=== PATIENT | female | born 1980 | race Caucasian/White ===

== ENCOUNTER → 2018-05-30 16:58 | Outpatient (CLI) | payer OTHER, SELFPAY ==
--- NOTE | 2018-06-06 08:11 | PM.PFT.1 ---
Pulmonary Function Test Referral & Results Date Patient Seen: 05/30/18 Requesting provider: Kym Celis Indication: Shortness of breath Results: The spirometry demonstrates an FVC of 3.34 L which is 90% of predicted. The FEV1 was measured at 2.65 L which is 87% of predicted. The FEV1/FVC ratio was 79 which is 96% of predicted. Following the administration of bronchodilator there was 10% improvement in FEV1 and a 50% improvement in FEF 25-75%. Lung volumes show an SVC of 3.46 L which is 99% of predicted. The diffusing capacity was measured at 23.8 for which is 98% of predicted. The maximum voluntary ventilation was normal. Interpretation: This study demonstrates possibly very mild obstructive lung disease based on very minimal reduction in FEV1 and concave shape of flow volume loop. There did appear to be some improvement as well following the administration of bronchodilator based on a 10% improvement in FEV1 and the 50+ percent improvement in small airway flow based on the increase in FEF 25-75% No other abnormalities were seen on this study Clinical correlation suggested
== END ==
PROVIDERS: PCP Family Medicine; Visit Provider Family Medicine
DX: R06.02 Shortness of breath (principal)
CPT/HCPCS: 94010; 94060; 94726; 94729

== ENCOUNTER → 2018-07-03 09:56 | Outpatient (CLI) | payer OTHER, SELFPAY ==
[2018-07-03 10:39] LABS: Add Manual Diff / Slide Review NO; Basophils Percent Auto 0.2 % (0-2); Eosinophils Percent Auto 0.6 % (2-4); Hematocrit 39.9 % (36-46); Hemoglobin 13.6 g/dL (12.0-16.0); Lymphocytes Percent Auto 31.8 % (25-40); Mean Corpuscular HGB Conc 34.1 % (30-36); Mean Corpuscular Hemoglobin 29.8 PG (26-34); Mean Corpuscular Volume 87.5 fL (80-100); Monocytes Percent Auto 4.9 % (3-14); Neutrophils Absolute Auto 5300 /uL (3000-5900); Neutrophils Percent Auto 62.5 % (50-75); Platelet Count 240 X10^3/uL (150-400); Red Blood Cell Count 4.56 X10^6/uL (4.0-5.2); White Blood Cell Count 8.5 X10^3/uL (4.5-11.0)
[2018-07-03 11:04] LABS: Alanine Aminotransferase 24 IU/L (9-52); Albumin Globulin Ratio 1.3 (1.0-2.8); Alkaline Phosphatase 50 U/L (38-126); Aspartate Aminotransferase 21 IU/L (14-36); BUN Creatinine Ratio 13.8 (6-22); Bilirubin Total 0.6 mg/dL (0.2-1.3); Blood Urea Nitrogen 11 mg/dL (7-17); Calcium 9.3 mg/dL (8.4-10.2); Carbon Dioxide 29 mmol/L (22-32); Chloride 104 mmol/L (98-107); Estimated Glomerular Filt Rate > 60.0 mL/min (>60); Globulin 3.2 g/dL (1.7-4.1); Glucose 91 mg/dL (70-100); HEMOLYSIS < 15 (0-50); Potassium 3.8 mmol/L (3.4-5.1); Sodium 143 mmol/L (137-145); Total Protein 7.2 g/dL (6.3-8.2)
== END ==
PROVIDERS: PCP Family Medicine; Visit Provider Family Medicine
DX: R00.2 Palpitations (principal)
CPT/HCPCS: 36415; 80053; 84443; 85025

== ENCOUNTER → 2018-07-11 13:00 | Outpatient (CLI) | payer OTHER, SELFPAY ==
--- NOTE | 2018-07-22 10:18 | PM.CARDMON.1 ---
[employer] Operator Report Referral & Results Date Patient Seen: 07/11/18 Requesting provider: Kym Celis Indication: Palpitations Duration of monitoring (days): 4 Diary information: There was 0 patient diary entries There were 6 patient triggered events associated with sinus rhythm and PVCs Data: The minimum heart rate identified was 63 beats per minute at 03:09 on 07/12/2018 Maximum heart rate identified was 174 beats per minute at 11:21 on 07/13/2018 Less than 1% of identified beats were PACs Approximately 2.3% of identified beats were PVCs. Patient also had up to 4 min of ventricular bigeminy Impression: Patient with multiple PVCs as a potential and in fact likely source of patient's reported symptoms of palpitations No other serious dysrhythmia is identified on this study Clinical correlation suggested
== END ==
PROVIDERS: PCP Family Medicine; Visit Provider Family Medicine
DX: R00.2 Palpitations (principal)

== ENCOUNTER → 2019-08-01 09:28 | Outpatient (CLI) | payer OTHER, SELFPAY ==
--- NOTE | 2019-08-01 09:30 | DI.MG.S_ITS ---
BILATERAL DIGITAL SCREENING MAMMOGRAM 3D/2D WITH CAD: 08/01/2019 CLINICAL: Routine screening. Baseline exam. No prior exams were available for comparison. The tissue of both breasts is heterogeneously dense. This may lower the sensitivity of mammography. Current study was also evaluated with a Computer Aided Detection (CAD) system. No significant masses, calcifications, or other findings are seen in either breast. IMPRESSION: NEGATIVE There is no mammographic evidence of malignancy. A 1 year screening mammogram is recommended. This exam was interpreted at Station ID: [id number]. NOTE: For mammograms, a report in lay terms will be sent to the patient. Approximately 15% of breast malignancies will not be visualized mammographically. In the management of a palpable breast mass, a negative mammogram must not discourage biopsy of a clinically suspicious lesion. Electronically Signed By: Alina hughes/droa:08/03/2019 14:59:20 letter sent: Normal Exam ACR BI-RADS Category 1: Negative [id number]
== END ==
PROVIDERS: PCP Family Medicine; Visit Provider Family Medicine
DX: Z12.31 Encounter for screening mammogram for malignant neoplasm of breast (principal)
CPT/HCPCS: 77063; 77067

== ENCOUNTER → 2019-09-04 09:24 | Outpatient (CLI) | payer OTHER, SELFPAY ==
--- NOTE | 2019-09-04 09:25 | DI.US.S_ITS ---
PROCEDURE: US PELVIC COMPLETE INDICATIONS: PAIN TECHNIQUE: Real-time scanning was performed of the pelvic organs, with image documentation. Additional endovaginal scanning was necessary due to incomplete visualization of the adnexal and endometrial structures by transabdominal scanning. COMPARISON: None. FINDINGS: Transabdominal scanning: Limited scanning through the kidneys shows no hydronephrosis. No pathologic free abdominal or pelvic fluid. Endovaginal scanning: Uterus: Uterus is normal in size at 5.0 x 3.4 x 4.7 cm. The endometrium measures 2.5 mm in combined thickness. Ovaries: Ovaries are normal bilaterally. No adnexal masses seen. IMPRESSION: No source for pelvic pain identified. Dictated by: Sudhakar MARTÍNEZ Interpreted: Guille Ferris MD on 09/04/2019 at 11:01 Approved by: Guille Ferris M.D. on 09/04/2019 at 16:51
== END ==
PROVIDERS: PCP Family Medicine; Visit Provider Family Medicine
DX: R10.2 Pelvic and perineal pain (principal)
CPT/HCPCS: 76830; 76856

== ENCOUNTER 2019-10-16 16:46 | Emergency (ER) | payer OTHER, SELFPAY ==
[2019-10-16 16:51] VITALS: BP 148/90; PULSE 119; RESP 20; TEMP 36.4; O2SAT 99; BMI 27.4
--- NOTE | 2019-10-16 18:06 | DI.RAD.S_ITS ---
PROCEDURE: XR LUMBAR SPINE 2-3V INDICATIONS: low back pain TECHNIQUE: 3 views of the lumbar spine were acquired. COMPARISON: None. FINDINGS: Bones: 5 [id number] vertebrae are present. There is normal bony alignment. No vertebral body compression fractures. No suspicious bony lesions. Soft tissues: Overlying bowel gas pattern is normal. No suspicious soft tissue calcifications. IMPRESSION: No acute radiographic findings. If there is continued pain, followup exam or additional imaging such as MRI or CT could be performed for further assessment. Dictated by: Lisa Sevilla M.D. on 10/16/2019 at 18:58 Approved by: Lisa Sevilla M.D. on 10/16/2019 at 18:59
--- NOTE | 2019-10-16 18:16 | ED.BACK ---
HPI - Back Pain/Injury <PRIYANK Cuello - Last Filed: 10/16/19 21:45> General Chief Complaint: Back Pain/Injury Stated Complaint: injured her back a week ago, in a lot of pain Time Seen by Provider: 10/16/19 17:21 Source: patient Mode of arrival: Ambulatory Limitations: no limitations History of Present Illness HPI Narrative: This is a 39-year-old female, former smoker, who presents to ED with severe low back pain which is radiating to bilateral hips. Patient states she injured low back about a week ago by bending forward to pickling operator a toy. Patient was seen by chiropractor next day and had her back adjusted and starting to feel better with the sleeping with pillows between her legs and behind her knees with self treatment with [id number] Tylenol and Motrin. 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 Patient denies bladder or stool incontinence, saddle anesthesia, fever, chills, nausea or vomiting, recent surgical manipulation in her back/injection, urinary symptoms. Patient states she is able to ambulate but pain increases with sitting down and prolonged standing. Patient wanted to be seen by her PCP today but no available appointments till and the of this month and was suggested to go to ED for an evaluation. Related Data Home Medications Medication Instructions Recorded Confirmed acetaminophen 325 mg capsule 325 mg PO Q6H PRN 04/16/18 07/31/19 sodium chloride 0.65 % nasal spray 1 spray NASAL Q4H PRN 04/16/18 07/31/19 aerosol dextromethorphan-guaifenesin ER 60 1 tab PO Q12H PRN tab 07/28/19 07/31/19 mg-1,200 mg tab,extend release,12hr Previous Rx's Medication Instructions Recorded albuterol sulfate 90 mcg/actuation 2 puff INHALATION Q4H PRN #6.7 gram 06/12/18 aerosol inhaler fluticasone propionate 50 1 spray INTRANASAL QDAY #1 bot 07/23/18 mcg/actuation nasal spray,suspension loratadine-pseudoephedrine ER 10 1 tab PO QDAY #30 tab 10/21/18 mg-240 mg tablet,extended [id number] desogestrel 0.15 mg-ethinyl 1 tab PO DAILY #84 tab 07/10/19 estradiol 0.03 mg tablet epinephrine 0.3 mg/0.3 mL 0.3 mg IM ONCE PRN #2 each 07/31/19 injection, auto-injector montelukast 10 mg tablet 10 mg PO QDAY #30 tab 09/15/19 cyclobenzaprine 5 - 10 mg PO BEDTIME PRN #10 tab 10/16/19 hydrocodone-acetaminophen [[place]] 1 tab PO Q8H PRN #7 tab 10/16/19 prednisone 40 mg PO DAILY 4 Days #8 tab 10/16/19 Allergies Allergy/AdvReac Type Severity Reaction Status Date / Time shellfish derived Allergy Unknown Verified 10/16/19 16:57 [SHELLFISH DERIVED] Sulfa (Sulfonamide Allergy Unknown Verified 10/16/19 16:57 Antibiotics) [SULFA (SULFONAMIDE ANTIBIOTICS)] venom-honey bee Allergy Unknown Verified 10/16/19 16:57 [BEE VENOM (HONEY BEE)] Review of Systems <PRIYANK Cuello - Last Filed: 10/16/19 21:45> Review of Systems Narrative: General: Denies fever, chills, fatigue, malaise, sweats. HEENT: Denies sinus pain, ear pain, sore throat, difficulty swallowing, dizziness. Respiratory: Denies dyspnea, cough, wheezing, hemoptysis, sputum. Cardiovascular: Denies chest pain, palpitations, orthopnea, edema. Gastrointestinal: Denies nausea, vomiting, abdominal pain, diarrhea, constipation, melena. : Denies dysuria, frequency, incontinence, hematuria, urinary retention. Musculoskeletal: See HPI Skin: Denies rash, skin lesions, or other. Neurologic: Denies weakness, headache, numbness, change in speech, confusion, seizures, incoordination. Psychiatric: No concerning psychosocial issues. 12-point review of systems is negative except for those stated above. Patient History <PRIYANK Cuello - Last Filed: 10/16/19 21:45> Medical History Ankle pain (Resolved ~1987) Asthma (Acute) Chicken pox (Chronic ~1983) Chronic back pain (Chronic ~1997) CTS (carpal tunnel syndrome) (Chronic 1997) Depression (Chronic ~1996) Eczema (Chronic ~2013) 3 (Resolved) Hayfever (Chronic ~1986) Migraines (Chronic ~2000) Recurrent sinusitis (Chronic ~2000) Surgical History Anesthesia (Resolved) History of hernia repair (Resolved 1979) History of third molar tooth extraction (Resolved 1995) Family History Father Age: 53 Mental health problem Pacemaker Lung disease Grandfather Lung cancer Diabetes mellitus Grandfather Heart disease Grandmother Heart disease Hypertension High cholesterol Brother No problems noted. Grandmother No problems noted. 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 Head: normocephalic, atraumatic, no scalp lesions, non-tender. ENT: Bilateral auditory canals and tympanic membranes clear. Hearing grossly intact. Nose without bleeding, purulent discharge, septal hematoma or deviation. Turbinate without erythema or swelling. Facial sinuses nontender to palpate. Mucous membrane moist, no mucosal lesion. Throat without erythema, tonsillar hypertrophy or exudate. Uvula in midline, airway patent. Neck/Thyroid: neck supple, full range of motion, no visible masses or meningeal signs. No JVD, non-tender without lymphadenopathy. Skin: no suspicious rashes, lesions over visible areas. Warm and dry and appropriate color for ethnicity. Heart: no clubbing, no cyanosis, no edema. S1 and S2 normal. RRR w/o murmurs, clicks, or bruits. Lungs: Breathing even and unlabored. No stridor. No accessory muscles used. Able to speak in full sentences. Chest: normal shape and expansion. Abdomen: non-obese, non-distended. Neurologic: alert and oriented. Cognitive exam, QUILL LAYER and PNS grossly intact on informal exam. Psych: good eye contact, normal affect. Initial Vital Signs Initial Vital Signs: Vital Signs Temperature 97.6 F 10/16/19 16:51 Pulse Rate 119 H 10/16/19 16:51 Respiratory Rate 10/16/19 16:51 Blood Pressure 148/90 H 10/16/19 16:51 Pulse Oximetry 99 10/16/19 16:51 Back/Spine/Pelvis Back: normal to inspection Cervical Spine: cervical ROM normal Thoracic/Lumbar Spine: thoracic and lumbar spine normal to inspection, paraspinal tenderness, thoraco-lumbar ROM limited, lumbar spinal tenderness, straight leg raise positive and other (No erythema, warmth, swelling) <Duncan Ojeda DO - Last Filed: 10/16/19 21:46> Initial Vital Signs Initial Vital Signs: Vital Signs Temperature 97.6 F 10/16/19 16:51 Pulse Rate 119 H 10/16/19 16:51 Respiratory Rate 10/16/19 16:51 Blood Pressure 148/90 H 10/16/19 16:51 Pulse Oximetry 99 10/16/19 16:51 Scores <PRIYANK Cuello - Last Filed: 10/16/19 21:45> GCS [place] coma scale eye opening: Spontaneous [place] coma scale verbal response: Orientated Yocasta coma scale motor response: Obey commands Yocasta coma scale total score: 15 Course <PRIYANK Cuello - Last Filed: 10/16/19 21:45> Orders Ordered: ED Orders 10/16/19 17:58 Urine Microscopic Stat 10/16/19 18:06 XR lumbar spine 2-3V Stat Discontinued Medications Acetaminophen (Tylenol) 975 mg PO NOW ONE Stop: 10/16/19 18:10 Last Admin: 10/16/19 18:19 Dose: 975 mg Documented by: ADELINE Cyclobenzaprine HCl (Flexeril) 10 mg PO NOW ONE Stop: 10/16/19 18:07 Last Admin: 10/16/19 18:20 Dose: 10 mg Documented by: ADELINE Ketorolac Tromethamine (Toradol) 30 mg IM NOW ONE Stop: 10/16/19 18:07 Last Admin: 10/16/19 18:20 Dose: 30 mg Documented by: ADELINE Pantoprazole Sodium (Protonix) 20 mg PO NOW ONE Stop: 10/16/19 18:07 Last Admin: 10/16/19 18:20 Dose: 20 mg Documented by: ADELINE Prednisone (Deltasone) 40 mg PO NOW ONE Stop: 10/16/19 18:07 Last Admin: 10/16/19 18:19 Dose: 40 mg Documented by: ADELINE Vital Signs Vital signs: Vital Signs - 8 hr 10/16/19 16:51 10/16/19 19:59 Temperature 97.6 F Pulse Rate 119 H 78 Respiratory Rate 20 16 Blood Pressure 148/90 H Blood Pressure [Left Arm] 119/66 Pulse Oximetry 99 98 <Duncan Ojeda DO - Last Filed: 10/16/19 21:46> Orders Ordered: ED Orders 10/16/19 17:58 Urine Microscopic Stat 10/16/19 18:06 XR lumbar spine 2-3V Stat Discontinued Medications Acetaminophen (Tylenol) 975 mg PO NOW ONE Stop: 10/16/19 18:10 Last Admin: 10/16/19 18:19 Dose: 975 mg Documented by: ADELINE Cyclobenzaprine HCl (Flexeril) 10 mg PO NOW ONE Stop: 10/16/19 18:07 Last Admin: 10/16/19 18:20 Dose: 10 mg Documented by: ADELINE Ketorolac Tromethamine (Toradol) 30 mg IM NOW ONE Stop: 10/16/19 18:07 Last Admin: 10/16/19 18:20 Dose: 30 mg Documented by: ADELINE Pantoprazole Sodium (Protonix) 20 mg PO NOW ONE Stop: 10/16/19 18:07 Last Admin: 10/16/19 18:20 Dose: 20 mg Documented by: ADELINE Prednisone (Deltasone) 40 mg PO NOW ONE Stop: 10/16/19 18:07 Last Admin: 10/16/19 18:19 Dose: 40 mg Documented by: ADELINE Vital Signs Vital signs: Vital Signs - 8 hr 10/16/19 16:51 10/16/19 19:59 Temperature 97.6 F Pulse Rate 119 H 78 Respiratory Rate 20 16 Blood Pressure 148/90 H Blood Pressure [Left Arm] 119/66 Pulse Oximetry 99 98 MDM - Back Pain/Injury <PRIYANK Cuello - Last Filed: 01/10/20 21:45> Differential Diagnosis Differential diagnosis: Likely lumbar radiculopathy and strain of lumbar region Medical Records Attestation: I reviewed the patient's medical records. Lab Data Attestation: I reviewed the patient's lab results. Labs: Lab Results 10/16/19 Range/Units 17:58 Urine RBC 0-1/hpf (0-5/HPF) Urine WBC 0-1/hpf (0-5/HPF) Ur Squamous Epith Cells 0-1 /hpf (0-5/HPF) Urine Bacteria None seen (None) Ur Culture Indicated? Cult not indicated Point of Care Testing Test Results Negative Urine Dip Bedside Urine Glucose Negative Bedside Urine Bilirubin - Negative Bedside Urine Ketone - Negative Urine Specific [place] 1.010 Bedside Urine Occult Blood + Bedside Urine pH 6.0 Bedside Urine Protein - Negative Bedside Urine Urobilinogen - Negative Bedside Urine Nitrite - Negative Bedside Urine Leukocytes - Negative Esterase Imaging Data XR-Lumbar: Radiologist's Impression: [address] [address] XRay Report Signed Patient: Patricia Aguayo [facility]#: [id number] : 1980Acct:[id number] Age/Sex: 39 / FDate of Service: 10/16/19 Loc: ED Accession Number: [id number] Procedure: XR lumbar spine 2-3V Ordering Provider: Saul Goldstein PROCEDURE: XR LUMBAR SPINE 2-3V INDICATIONS: low back pain TECHNIQUE: 3 views of the lumbar spine were acquired. COMPARISON: None. FINDINGS: Bones: 5 [id number] vertebrae are present. There is normal bony alignment. No vertebral body compression fractures. No suspicious bony lesions. Soft tissues: Overlying bowel gas pattern is normal. No suspicious soft tissue calcifications. IMPRESSION: No acute radiographic findings. If there is continued pain, followup exam or additional imaging such as MRI or CT could be performed for further assessment. Dictated by: Lisa Sevilla M.D. on 10/16/2019 at 18:58 Approved by: Lisa Sevilla M.D. on 10/16/2019 at 18:59 MDM Narrative Medical decision making narrative: This is a 39-year-old female who had initially injured her low back about a week ago by bending forward to pickling operator a toy. 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 Patient had thoracic and lumbar spinal and paraspinal tenderness with positive leg raise but no weakness to her legs. Patient was ambulatory without difficulty. Patient denies saddle anesthesia, incontinence, fever or chills. Lumbar x-ray test does not show acute findings today. Patient was medicated with Toradol injection, Tylenol, Flexeril, prednisone while in ED and patient felt improvement after these. UA does not appears to be a infection but 1+ occult blood. However, physical exam is not consistent with renal stone. Urine test was negative. Return precautions were discussed with the patient and advised to follow with PCP especially pain persists longer than expected for further imaging test. Patient discharged to home with few tabs of Flexeril, [place], and short burst of prednisone. Patient advised to take Tylenol and Motrin as baseline and sparingly use other medications only as needed and narcotic and muscle relaxant precautions were discussed. Return precautions were discussed with the patient and patient and spouse verbalized understanding and agrees with the treatment plan. <Duncan Ojeda, DO - Last Filed: 10/16/19 21:46> Lab Data Labs: Lab Results 10/16/19 Range/Units 17:58 Urine RBC 0-1/hpf (0-5/HPF) Urine WBC 0-1/hpf (0-5/HPF) Ur Squamous Epith Cells 0-1 /hpf (0-5/HPF) Urine Bacteria None seen (None) Ur Culture Indicated? Cult not indicated Point of Care Testing Test Results Negative Urine Dip Bedside Urine Glucose Negative Bedside Urine Bilirubin - Negative Bedside Urine Ketone - Negative Urine Specific [place] 1.010 Bedside Urine Occult Blood + Bedside Urine pH 6.0 Bedside Urine Protein - Negative Bedside Urine Urobilinogen - Negative Bedside Urine Nitrite - Negative Bedside Urine Leukocytes - Negative Esterase Discharge Plan Departure Patient Disposition: Home Clinical Impression: Low back pain Qualifiers: Chronicity: acute Back pain laterality: bilateral Sciatica presence: unspecified whether sciatica present Qualified Code(s): M54.5 - Low back pain Discharge Date/Time: 10/16/19 20:06 Instructions: DI for Low Back Pain Activity Restrictions/Additional Instructions: You have been diagnosed with [low back pain. Today's lumbar x-ray test does not show acute findings. You were medicated with prednisone, Flexeril, Toradol injection, Tylenol while in ED which improved her pain. Urine showed small amount of blood but does not appears to be your pain is caused by this or kidney stone.]. What to do: *Take your medications as directed. Please take Flexeril for muscle relaxant especially when you go to sleep. [place] is only for severe pain. [place] and Flexeril can cause drowsiness so please take precautions such as not driving, drinking alcohol, for operating heavy equipments. [place] can cause also constipation. Otherwise, please take Tylenol and Motrin for pain management. Tylenol up to 4000 mg in 24 hour period. Ibuprofen 600-800 mg 3 times a day with meal/food to decrease GI upset. Prednisone 40 mg daily for next 4 days for inflammation and pain. You can take [id number] omeprazole to decrease GI symptoms while you're taking ibuprofen and steroids. *Follow up with your primary care provider in 2-3 days, call for an appointment. Let them know you were seen in the ED and that we asked you to be seen in follow up. *Return to ED if you have any new, worsening, or concerning symptoms, such as [chest pain, breathing difficulty, unable to tolerate fluids, weakness to her legs, numbness in your groin areas, incontinence problem or any acute concerns]. Prescriptions: New hydrocodone-acetaminophen [[place]] 5-325 mg tablet 1 tab PO Q8H PRN (Reason: pain) Qty: 7 RF: 0 cyclobenzaprine 10 mg tablet 5 - 10 mg PO BEDTIME PRN (Reason: muscle spasm) Qty: 10 RF: 0 prednisone 20 mg tablet 40 mg PO DAILY 4 Days Qty: 8 RF: 0 No Action epinephrine [Auvi-Q] 0.3 mg/0.3 mL auto-injector 0.3 mg IM ONCE PRN (Reason: anaphylaxis) Qty: 2 RF: 1 albuterol sulfate 90 mcg/actuation HFA aerosol inhaler 2 puff INHALATION Q4H PRN (Reason: shortness of breath or wheezing) Qty: 6.7 RF: 2 fluticasone propionate [Flonase Allergy Relief] 50 mcg/actuation spray,suspension 1 spray Intranasal QDAY Qty: 1 RF: 0 loratadine-pseudoephedrine 10-240 mg tablet extended release 24 hr 1 tab PO QDAY Qty: 30 RF: 12 desogestrel-ethinyl estradiol 0.15-0.03 mg tablet 1 tab PO DAILY Qty: 84 RF: 1 montelukast 10 mg tablet 10 mg PO QDAY Qty: 30 RF: 12 acetaminophen 325 mg capsule 325 mg PO Q6H PRNRF: 0 sodium chloride [Saline Mist] 0.65 % aerosol,spray 1 spray NASAL Q4H PRNRF: 0 dextromethorphan-guaifenesin [Mucinex DM] 60-1,200 mg tablet extended release 12 hr 1 tab PO Q12H PRNRF: 0 Referrals: Kym Celis DO [Primary Care Provider] - <Duncan Ojeda DO - Last Filed: 10/16/19 21:46> Sign Out Provider Sign Out Attestation: Dr Ojeda Co-Sign Statement: I was available for consultation during this patient's emergency department visit. This chart is signed by myself for administrative purposes only. I did not have direct contact with this patient during this visit. They were seen independently by the APC.
[2019-10-16] MEDS: predniSONE 20 MG TABLET 40 MG PO (18:19)
[2019-10-16] MEDS: ACETAMINOPHEN 325 MG TABLET 975 MG PO (18:19)
[2019-10-16] MEDS: KETOROLAC 60 MG/2 ML VIAL 30 MG IM (18:20)
[2019-10-16] MEDS: CYCLOBENZAPRINE 10 MG TABLET PO (18:20)
[2019-10-16] MEDS: PANTOPRAZOLE 20 MG TABLET PO (18:20)
[2019-10-16 18:40] LABS: Bacteria Urine None Seen
[2019-10-16 18:55] LABS: Culture Indicated Urine Cult Not Indicated; RBC Urine 0-1/HPF (0-5/HPF); Squamous Epithelial Cell Urine 0-1 /HPF (0-5/HPF); WBC Urine 0-1/HPF (0-5/HPF)
[2019-10-16 19:59] VITALS: BP 119/66; PULSE 78; RESP 16; O2SAT 98
== END 2019-10-16 20:06 | disposition home or self-care (01) ==
PROVIDERS: Emergency Provider Nurse Practitioner Family; PCP Family Medicine
DX: M54.5 Low back pain (principal)
CPT/HCPCS: 72100; 81003; 81015; 81025; 96372; 99283; 99284; J1885

== ENCOUNTER → 2019-11-16 07:50 | Outpatient (CLI) | payer OTHER, SELFPAY ==
[2019-11-16 08:36] LABS: Add Manual Diff / Slide Review NO; Basophils Absolute Auto 0 /uL (0-100); Basophils Percent Auto 0.1 % (0-2); Eosinophils Absolute Auto 100 /uL (0-450); Eosinophils Percent Auto 1.5 % (2-4); Hematocrit 39.7 % (36-46); Hemoglobin 13.5 g/dL (12.0-16.0); Lymphocytes Absolute Auto 3400 /uL (1100-4500); Lymphocytes Percent Auto 44.7 % (25-40); Mean Corpuscular HGB Conc 33.9 % (30-36); Mean Corpuscular Volume 88.3 fL (80-100); Monocytes Absolute Auto 400 /uL (0-900); Neutrophils Absolute Auto 3700 /uL (1500-7000); Neutrophils Percent Auto 48.7 % (50-75); Platelet Count 270 X10^3/uL (150-400); Red Cell Distribution Width 13.2 % (11.6-14.8); White Blood Cell Count 7.5 X10^3/uL (4.5-11.0)
[2019-11-16 08:46] LABS: Alanine Aminotransferase 26 IU/L (<35); Albumin 4.1 g/dL (3.5-5.0); Albumin Globulin Ratio 1.2 (1.0-2.8); Alkaline Phosphatase 63 U/L (38-126); Aspartate Aminotransferase 26 IU/L (14-36); BUN Creatinine Ratio 17.1 (6-22); Bilirubin Total 0.5 mg/dL (0.2-1.3); Blood Urea Nitrogen 12 mg/dL (7-17); Calcium 8.9 mg/dL (8.4-10.2); Carbon Dioxide 26 mmol/L (22-32); Chloride 104 mmol/L (98-107); Estimated Glomerular Filt Rate > 60.0 mL/min (>60); Globulin 3.4 g/dL (1.7-4.1); Glucose 92 mg/dL (70-100); HEMOLYSIS < 15 (0-50); Potassium 3.7 mmol/L (3.4-5.1); Sodium 138 mmol/L (137-145); Total Protein 7.5 g/dL (6.3-8.2)
[2019-11-16 09:23] LABS: TSH w/ Reflex to FT4 1.58 uIU/mL (0.47-4.68)
== END ==
PROVIDERS: PCP Family Medicine; Referring Provider Family Medicine; Visit Provider Family Medicine
DX: R00.0 Tachycardia, unspecified (principal)
CPT/HCPCS: 36415; 80053; 84443; 85025

== ENCOUNTER 2019-12-23 16:45 | Outpatient (RCR) | payer OTHER, SELFPAY ==
--- NOTE | 2019-10-29 18:55 | PT.OIE ---
Current Diagnoses Low back pain (10/29/19) Abnormal posture (10/29/19) Weakness (10/29/19) Past Medical History (Last Reviewed 10/22/19 @ 07:58 by Kym Celis DO) Ankle pain (Resolved ~1987) Asthma (Acute) Chicken pox (Chronic ~1983) Chronic back pain (Chronic ~1997) CTS (carpal tunnel syndrome) (Chronic 1997) Depression (Chronic ~1996) Eczema (Chronic ~2013) 3 (Resolved) Hayfever (Chronic ~1986) Migraines (Chronic ~2000) Recurrent sinusitis (Chronic ~2000) Past Surgical History (Last Reviewed 10/22/19 @ 07:58 by Kym Celis DO) Anesthesia (Resolved) History of hernia repair (Resolved 1979) History of third molar tooth extraction (Resolved 1995) Visit Care Team Role Provider Type Kym Celis DO Attending Provider Physician Primary Care Provider Specialty: [facility] Practice Address: [address] [place] [address], [facility] Email: [email or web address] Physical Therapy Initial Evaluation PT-OP-A Visit Information Start: 10/28/19 18:34 Freq: Status: Active Protocol: Document 10/29/19 16:04 [facility] (Rec: 10/29/19 18:37 [facility] [id number]) Out-Patient Physical Therapy Visit Information Visit Information Visit Type Initial Evaluation Visit Start Time 16:54 Visit Stop Time 18:04 Total Visit Minutes 70 Visit Number 1 Number of RESEARCH QUALITY ASSURANCE SPECIALIST Visits 0 PT-OP-B Current Condition Start: 10/28/19 18:34 Freq: Status: Active Protocol: Document 10/29/19 16:04 [facility] (Rec: 10/29/19 18:37 [facility] [id number]) Current Condition History of Current Condition Onset Date Oct 08 worse Current Complaints LBP History of Current Condition Pt reports she has had LBP for a while that was mild for months and has been seeing chiropractor and getting better. She bent over to put a toy leticia bin Oct 08 and had a sharp pain that went into back and around to abdomen like a belt. She went to ER shortly after d/t pain and was given pain meds and saw primary who sent her here. Pt has not seen chiropractor recently d/t concern re: motion and unsure if helping. Last time she saw chiro oct 16. She is taking flexeril which her MD prescribed and she thinks it is helpful especially to help sleeping. Pt reports she changed her sleeping position to hips flexed as high as possible with pillow between and that helped. Standing is not as bad as sitting. Pt has has referal in to see plastic surgeon for breast reduction as she gets bruised by bra and has upper back and neck pain. She did PT for that a couple years ago still does stretches . Pt has hx of R inguinal hernia at 17 months old. Pt is so scared and tenative re: movement d/t fear of having that pain again. Sometimes going down is okay but coming up catches it. Pt has taken off 2 weeks and this is the end of it . 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 She is using a cushion to help her be higher now. She started some Serina ext exercises per a coworker who used to be a PT and that helped some. Pt has pressure in abdomen and feels like she can't hold her core because it creates more pain and has had some incontinence when she does that. When she was on those meds from the ER, she had 4 days of feeling great, but worse again. Pt has a normal vaginal US. Pt reports feels like she is not voiding completely bowel or bladder fully. Pt reports urge incontinence. Pt had 2 tramatic births. SHe was told her had a prolapse but did not have any sumptoms and they did nothing for her. Recent MD borja did not note prolapse. Pt reports 1st child was stuck on her pelvis for 3 hours and came out face first. 2nd kid was also stuck and they had to do vacuum assist to get him out. Kids are 9 and 11. Pt reports fall on tailbone where she was significantly bruised after slipping on wet stairs. This happened last winter. Treatment Goals Patient/Caregiver Goals Figure out how to make herself feel better, be able to move with less pain, improve incontinence, dec pain and pressure PT-OP-C Subjective Start: 10/28/19 18:34 Freq: Status: Active Protocol: Document 10/29/19 16:04 [facility] (Rec: 10/29/19 18:37 [facility] [id number]) Patient Questionnaires Oswestry Low Back Index Oswestry Score 24/50 OP-PT Pain Assessment Location LB Pain Location Details sacral & SI & glute L>R Intensity 4 Scale Used Numeric (1 - 10) Description Aching,Pressure Description- Other gets up to 8/10 with certain activities Frequency Constant Radiating Location legs feel heavy when getting up Pain Aggravating Factors Sitting,Bending,Lifting Other Pain Aggravating Factors driving Pain Alleviating Factors Cold,Heat,Medication Other Pain Alleviating Factors post tilt, lay down PT-OP-F Manual Assessment Start: 10/28/19 18:34 Freq: Status: Active Protocol: Document 10/29/19 16:04 [facility] (Rec: 10/29/19 18:37 [facility] [id number]) Manual Assessments Soft Tissue Assessment Soft Tissue Mobility Assessment tightnes in QL, ES & glutes Joint Mobility Assessment Joint Mobility Assessment R iliac crest higher than L, equal height of greater trochanters PT-OP-G Mobility & Gait Start: 10/28/19 18:34 Freq: Status: Active Protocol: Document 10/29/19 16:04 [facility] (Rec: 10/29/19 18:37 [facility] [id number]) OP Mobility Evaluation Bed Mobility Rolling performs log roll technique for supine<>Sit OP Gait Assessment Comments Gait Comments Pt amb with rigid upper torso and dec pelvis motion at this time. No notable ant elevation /post depression PT-OP-J Posture/Palpation/Skin Start: 10/28/19 18:34 Freq: Status: Active Protocol: Document 10/29/19 16:04 [facility] (Rec: 10/29/19 18:37 [facility] [id number]) Posture Evaluation Jonny Postural Classification System Jonny Postural Classifications Anterior/Posterior Lumbar Protective Mechanism Left AP 0 Lumbar Protective Mechanism Right AP 0 Lumbar Protective Mechanism Left PA 0 Lumbar Protective Mechanism Right PA 0 PT-OP-K Range of Motion Start: 10/28/19 18:34 Freq: Status: Active Protocol: Document 10/29/19 16:04 [facility] (Rec: 10/29/19 18:37 [facility] [id number]) Lumbar Spine Range of Motion Lumbar Spine Active Degrees Flexion 34 Extension 20 Rotation Left 64 Rotation Right 48 Lateral Flexion Left 14 Lateral Flexion Right 13 PT-OP-L Special Tests Start: 10/28/19 18:34 Freq: Status: Active Protocol: Document 10/29/19 16:04 [facility] (Rec: 10/29/19 18:37 [facility] [id number]) Special Tests Lumbar Spine Special Tests Straight Leg Raise Test Results positive B at about 15 deg Slump Test Results unable to test d/t position being uncomfortable PT-OP-M Strength Start: 10/28/19 18:34 Freq: Status: Active Protocol: Document 10/29/19 16:04 [facility] (Rec: 10/29/19 18:37 [facility] [id number]) Hip Strength Hip Manual Muscle Testing Right Reason Not Measured Pain Left Reason Not Measured Pain Knee Strength Knee Manual Muscle Testing Right Reason Not Measured Pain Left Reason Not Measured Pain Ankle/Foot Strength Ankle and Foot Manual Muscle Testing Right Reason Not Measured Pain Left Reason Not Measured Pain PT-OP-Q Treatments Start: 10/28/19 18:34 Freq: Status: Active Protocol: Document 10/29/19 16:04 [facility] (Rec: 10/29/19 18:37 [facility] [id number]) Therapeutic Exercises Supine Exercises kegal Supine Exercise Name attempt to contract then fully relax Reps/Minutes hold 5 & rest 5 sec x3 lTR Supine Exercise Name focus on segmental control in comfortable range Side bilateral Reps/Minutes 10 pelvic tilt Supine Exercise Name post Reps/Minutes 10 stretch Supine Exercise Name SKTC & pirifromis Side bilateral Reps/Minutes 30 sec sciatic n glide Side bilateral Reps/Minutes 10 Self-Care/Home Management Treatment Education Other Education anatomy of pelvic and lumbar area, edu re: prognosis of improvement for pain and incontinence, edu to use ice/ heat for pain, edu re: importance of small inc in movement that is comfortable. PT-OP-R Modalities Start: 10/28/19 18:34 Freq: Status: Active Protocol: Document 10/29/19 16:04 [facility] (Rec: 10/29/19 18:37 [facility] [id number]) Hot Pack/Cold Pack Treatment Hot Pack Location lumbosacral Patient Position Sidelying Treatment Duration (minutes) 10 PT-OP-T Assessment and Plan Start: 10/28/19 18:34 Freq: Status: Active Protocol: Document 10/29/19 16:04 [facility] (Rec: 10/29/19 18:37 [facility] [id number]) Physical Therapy Assessment Rehab Potential Rehabilitation Potential Good Evaluation Complexity Number of Personal Factors/Comorbidities 3 or More Number of Body Systems Impaired 4 or More Clinical Presentation at Evaluation Evolving Impairments Impairments Activity Tolerance,Functional Activities,Functional Mobility ,Gait,Pain,Posture,Soft Tissue Mobility,Strength Goals sitting Steamer Operator Goal (LTG) Pt will be able to sit for as long as needed without inc pain. LTG Duration 12/28/19 ROM Short Term Goal (STG) Pt will have WNL ROM. 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 LTG Duration 12/28/19 strength Short Term Goal (STG) Pt will be indep with HEP. STG Duration 11/29/19 Steamer Operator Goal (LTG) Pt will score 5/5 LPM, VCT, and EFT in order to show improved core stability in order to allow her to participate in all work without inc pain. LTG Duration 12/28/19 Oswestry Impairment 24/50 STG Duration 11/29/19 LTG Duration 12/28/19 Assessment Summary Assessment Pt presents with LBP and L gluteal pain and pelvic pain with incontinence at this time starting a few months ago with recent incident causing signfiicant increase in pain that caused her to go to ER and seek treatment from her physician. Prior to this, she was managing her pain with director critical care. She is now limited in her ability to sit and participate in work activities without inc pain and has a constant 4/10 pain. She would benefit from skilled PT to work on ROM, gait, strength of LEs & core, improve body mechanics, and decrease pain. Physical Therapy Plan Frequency and Duration Frequency of Treatment 2x/Week Duration of Treatment 2 months Plan of Care Start Date 10/29/19 Plan of Care End Date 12/28/19 Therapeutic Interventions Therapeutic Interventions Aquatic Therapy,Balance Training,Gait Training,Home Exercise Program,Joint Mobilizations,Manual Therapy, Neuromuscular Re-education, Patient/Caregiver Education, Self-Care/Home Management,Soft Tissue Mobilization,Taping, Therapeutic Activities, Therapeutic Exercises Modalities Biofeedback,Cold Pack/Ice Massage,Electric Stimulation, Hot Packs,Infrared Therapy, Iontophoresis,Traction- Mechanical,Ultrasound Next Visit Focus/Plan Next Note Type Treatment Note Next Visit Plan try gentle core exercises, quadruped for cat/camel, dayo pose, try pelvic clocks , gentle flexibility, correction of pelvic alignment , STM to glutes, QL & ES
--- NOTE | 2019-10-29 18:55 | PT.OPPOC ---
Physical, Occupational & Speech Therapy At [facility] Current Diagnoses Low back pain (10/29/19) Abnormal posture (10/29/19) Weakness (10/29/19) Visit Care Team Role Provider Type Kym Celis DO Attending Provider Physician Primary Care Provider Specialty: Family Practice Address: [address] [place] [address], [id number] Email: [email or web address] Plan Of Care PT-OP-T Assessment and Plan Start: 10/28/19 18:34 Freq: Status: Active Protocol: Document 10/29/19 16:04 [facility] (Rec: 10/29/19 18:37 [facility] [id number]) Physical Therapy Assessment Rehab Potential Rehabilitation Potential Good Evaluation Complexity Number of Personal Factors/Comorbidities 3 or More Number of Body Systems Impaired 4 or More Clinical Presentation at Evaluation Evolving Impairments Impairments Activity Tolerance,Functional Activities,Functional Mobility ,Gait,Pain,Posture,Soft Tissue Mobility,Strength Goals sitting Utility Technician Goal (LTG) Pt will be able to sit for as long as needed without inc pain. LTG Duration 12/28/19 ROM Short Term Goal (STG) Pt will have WNL ROM. 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 LTG Duration 12/28/19 strength Short Term Goal (STG) Pt will be indep with HEP. STG Duration 11/29/19 Utility Technician Goal (LTG) Pt will score 5/5 LPM, VCT, and EFT in order to show improved core stability in order to allow her to participate in all work without inc pain. LTG Duration 12/28/19 Oswestry Impairment 24/50 STG Duration 11/29/19 LTG Duration 12/28/19 Assessment Summary Assessment Pt presents with LBP and L gluteal pain and pelvic pain with incontinence at this time starting a few months ago with recent incident causing signfiicant increase in pain that caused her to go to ER and seek treatment from her physician. Prior to this, she was managing her pain with field care manager. She is now limited in her ability to sit and participate in work activities without inc pain and has a constant 4/10 pain. She would benefit from skilled PT to work on ROM, gait, strength of LEs & core, improve body mechanics, and decrease pain. Physical Therapy Plan Frequency and Duration Frequency of Treatment 2x/Week Duration of Treatment 2 months Plan of Care Start Date 10/29/19 Plan of Care End Date 12/28/19 Therapeutic Interventions Therapeutic Interventions Aquatic Therapy,Balance Training,Gait Training,Home Exercise Program,Joint Mobilizations,Manual Therapy, Neuromuscular Re-education, Patient/Caregiver Education, Self-Care/Home Management,Soft Tissue Mobilization,Taping, Therapeutic Activities, Therapeutic Exercises Modalities Biofeedback,Cold Pack/Ice Massage,Electric Stimulation, Hot Packs,Infrared Therapy, Iontophoresis,Traction- Mechanical,Ultrasound Next Visit Focus/Plan Next Note Type Treatment Note Next Visit Plan try gentle core exercises, quadruped for cat/camel, dayo pose, try pelvic clocks , gentle flexibility, correction of pelvic alignment , STM to glutes, QL & ES Plan of Care Dates Plan of Care Start Date 10/29/19 Plan of Care End Date 12/28/19 Electronically Signed by: Magy Perry, PT 10/29/19 1269 Please Sign and Return: I have reviewed this Plan of Care and certify that the skilled therapy services above are required to meet the patient?s needs. Physician Signature Date Printed Name and Credentials Clinical Instructor Signature Printed Name and Credentials
--- NOTE | 2019-11-04 17:49 | PT.OTN ---
Current Diagnoses Low back pain (11/04/19) Abnormal posture (11/04/19) Weakness (11/04/19) Physical Therapy Treatment Note PT-OP-A Visit Information Start: 10/28/19 18:34 Freq: Status: Active Protocol: Document 11/04/19 16:50 DCW (Rec: 11/04/19 17:49 DCW [id number]) Out-Patient Physical Therapy Visit Information Visit Information Visit Type Treatment Note Visit Note 5 min late Visit Start Time 16:50 Visit Stop Time 17:40 Total Visit Minutes 50 Visit Number 2 Number of DIGITAL SALES EXECUTIVE Visits 0 PT-OP-B Current Condition Start: 10/28/19 18:34 Freq: Status: Active Protocol: Document 10/29/19 16:04 LR (Rec: 10/29/19 18:37 [facility] [id number]) Current Condition History of Current Condition Onset Date Oct 08 worse Current Complaints LBP History of Current Condition Pt reports she has had LBP for a while that was mild for months and has been seeing chiropractor and getting better. She bent over to put a toy leticia bin Oct 08 and had a sharp pain that went into back and around to abdomen like a belt. She went to ER shortly after d/t pain and was given pain meds and saw primary who sent her here. Pt has not seen chiropractor recently d/t concern re: motion and unsure if helping. Last time she saw chiro oct 16. She is taking flexeril which her MD prescribed and she thinks it is helpful especially to help sleeping. Pt reports she changed her sleeping position to hips flexed as high as possible with pillow between and that helped. Standing is not as bad as sitting. Pt has has referal in to see plastic surgeon for breast reduction as she gets bruised by bra and has upper back and neck pain. She did PT for that a couple years ago still does stretches . Pt has hx of R inguinal hernia at 17 months old. Pt is so scared and tenative re: movement d/t fear of having that pain again. Sometimes going down is okay but coming up catches it. Pt has taken off 2 weeks and this is the end of it . 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 She is using a cushion to help her be higher now. She started some Serina ext exercises per a coworker who used to be a PT and that helped some. Pt has pressure in abdomen and feels like she can't hold her core because it creates more pain and has had some incontinence when she does that. When she was on those meds from the ER, she had 4 days of feeling great, but worse again. Pt has a normal vaginal US. Pt reports feels like she is not voiding completely bowel or bladder fully. Pt reports urge incontinence. Pt had 2 tramatic births. SHe was told her had a prolapse but did not have any sumptoms and they did nothing for her. Recent MD borja did not note prolapse. Pt reports 1st child was stuck on her pelvis for 3 hours and came out face first. 2nd kid was also stuck and they had to do vacuum assist to get him out. Kids are 9 and 11. Pt reports fall on tailbone where she was significantly bruised after slipping on wet stairs. This happened last winter. Treatment Goals Patient/Caregiver Goals Figure out how to make herself feel better, be able to move with less pain, improve incontinence, dec pain and pressure PT-OP-C Subjective Start: 10/28/19 18:34 Freq: Status: Active Protocol: Document 11/04/19 16:50 DCW (Rec: 11/04/19 17:49 DCW [id number]) OP-PT Subjective Patient Comments Patient Comments Pt reports she is feeling better than she was last. 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 PT-OP-F Manual Assessment Start: 10/28/19 18:34 Freq: Status: Active Protocol: Document 10/29/19 16:04 [facility] (Rec: 10/29/19 18:37 [facility] [id number]) Manual Assessments Soft Tissue Assessment Soft Tissue Mobility Assessment tightnes in QL, ES & glutes Joint Mobility Assessment Joint Mobility Assessment R iliac crest higher than L, equal height of greater trochanters PT-OP-G Mobility & Gait Start: 10/28/19 18:34 Freq: Status: Active Protocol: Document 10/29/19 16:04 [facility] (Rec: 10/29/19 18:37 [facility] [id number]) OP Mobility Evaluation Bed Mobility Rolling performs log roll technique for supine<>Sit OP Gait Assessment Comments Gait Comments Pt amb with rigid upper torso and dec pelvis motion at this time. No notable ant elevation /post depression PT-OP-J Posture/Palpation/Skin Start: 10/28/19 18:34 Freq: Status: Active Protocol: Document 10/29/19 16:04 [facility] (Rec: 10/29/19 18:37 [facility] [id number]) Posture Evaluation [facility] Postural Classification System Jonny Postural Classifications Anterior/Posterior Lumbar Protective Mechanism Left AP 0 Lumbar Protective Mechanism Right AP 0 Lumbar Protective Mechanism Left PA 0 Lumbar Protective Mechanism Right PA 0 PT-OP-K Range of Motion Start: 10/28/19 18:34 Freq: Status: Active Protocol: Document 10/29/19 16:04 [facility] (Rec: 10/29/19 18:37 [facility] [id number]) Lumbar Spine Range of Motion Lumbar Spine Active Degrees Flexion 34 Extension 20 Rotation Left 64 Rotation Right 48 Lateral Flexion Left 14 Lateral Flexion Right 13 PT-OP-L Special Tests Start: 10/28/19 18:34 Freq: Status: Active Protocol: Document 10/29/19 16:04 [facility] (Rec: 10/29/19 18:37 [facility] [id number]) Special Tests Lumbar Spine Special Tests Straight Leg Raise Test Results positive B at about 15 deg Slump Test Results unable to test d/t position being uncomfortable PT-OP-M Strength Start: 10/28/19 18:34 Freq: Status: Active Protocol: Document 10/29/19 16:04 [facility] (Rec: 10/29/19 18:37 [facility] [id number]) Hip Strength Hip Manual Muscle Testing Right Reason Not Measured Pain Left Reason Not Measured Pain Knee Strength Knee Manual Muscle Testing Right Reason Not Measured Pain Left Reason Not Measured Pain Ankle/Foot Strength Ankle and Foot Manual Muscle Testing Right Reason Not Measured Pain Left Reason Not Measured Pain PT-OP-Q Treatments Start: 10/28/19 18:34 Freq: Status: Active Protocol: Document 11/04/19 16:50 DCW (Rec: 11/04/19 17:49 DCW [id number]) Gym Equipment Therapeutic Ball Low Trunk Rotation Exercise Details LTR Ball Size/Color Blue - 45 cm Body Position Hooklying Pelvic Tilt Exercise Details Pelvic Tilt, circles sitting on ball Ball Size/Color Green - 65 cm Body Position Sitting Therapeutic Exercises Supine Exercises pelvic tilt Supine Exercise Name post Reps/Minutes 10 stretch Supine Exercise Name SKTC, hamstring, & pirifromis Side bilateral Reps/Minutes 30 sec sciatic n glide Side bilateral Reps/Minutes 10 Manual Therapy Treatment Soft Tissue Mobilization 3 Body Location B Piriformis Mobilization Type Strumming,Sustained Pressure Intensity/Depth Moderate Body Position Sidelying 2 Body Location B ITB Mobilization Type Strumming,Sustained Pressure Intensity/Depth Moderate Body Position Sidelying 1 Body Location B Lumbar Paraspinals Mobilization Type Strumming,Sustained Pressure Intensity/Depth Moderate Body Position Sidelying Joint Mobilizations 1 Joint L1-5 Direction P->A Grade II Body Position Sidelying PT-OP-R Modalities Start: 10/28/19 18:34 Freq: Status: Active Protocol: Document 11/04/19 16:50 DCW (Rec: 11/04/19 17:49 DCW [id number]) Hot Pack/Cold Pack Treatment Hot Pack Location lumbosacral Patient Position Prone Treatment Duration (minutes) 10 PT-OP-T Assessment and Plan Start: 10/28/19 18:34 Freq: Status: Active Protocol: Document 11/04/19 16:50 DCW (Rec: 11/04/19 17:49 DCW [id number]) Physical Therapy Assessment Impairments Impairments Activity Tolerance,Functional Activities,Functional Mobility ,Gait,Pain,Posture,Soft Tissue Mobility,Strength Goals sitting Usp Goal (LTG) Pt will be able to sit for as long as needed without inc pain. LTG Duration 12/28/19 ROM Short Term Goal (STG) Pt will have WNL ROM. 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 LTG Duration 12/28/19 strength Short Term Goal (STG) Pt will be indep with HEP. STG Duration 11/29/19 Sawmill Hand Goal (LTG) Pt will score 5/5 LPM, VCT, and EFT in order to show improved core stability in order to allow her to participate in all work without inc pain. LTG Duration 12/28/19 Oswestry Impairment 24/50 STG Duration 11/29/19 LTG Duration 12/28/19 Assessment Summary Assessment Overall focus on gentle mobility, ROM, and STM today. Pt tolerated treatment fairly well, some positioning needed to be adjusted for comfort. Pt motivated to continue with her HEP independently. Physical Therapy Plan Frequency and Duration Frequency of Treatment 2x/Week Duration of Treatment 2 months Plan of Care Start Date 10/29/19 Plan of Care End Date 12/28/19 Therapeutic Interventions Therapeutic Interventions Aquatic Therapy,Balance Training,Gait Training,Home Exercise Program,Joint Mobilizations,Manual Therapy, Neuromuscular Re-education, Patient/Caregiver Education, Self-Care/Home Management,Soft Tissue Mobilization,Taping, Therapeutic Activities, Therapeutic Exercises Modalities Biofeedback,Cold Pack/Ice Massage,Electric Stimulation, Hot Packs,Infrared Therapy, Iontophoresis,Traction- Mechanical,Ultrasound Next Visit Focus/Plan Next Note Type Treatment Note Next Visit Plan try gentle core exercises, quadruped for cat/camel, dayo pose, try pelvic clocks , gentle flexibility, correction of pelvic alignment , STM to glutes, QL & ES
--- NOTE | 2019-11-09 08:26 | PT.OTN ---
Current Diagnoses Low back pain (11/09/19) Abnormal posture (11/09/19) Weakness (11/09/19) Physical Therapy Treatment Note PT-OP-A Visit Information Start: 10/28/19 18:34 Freq: Status: Active Protocol: Document 11/09/19 07:40 SP (Rec: 11/09/19 09:33 SP [id number]) Out-Patient Physical Therapy Visit Information Visit Information Visit Type Treatment Note Visit Note 5 min late Visit Start Time 07:35 Visit Stop Time 08:26 Total Visit Minutes 51 Visit Number 3 Number of STONE PAVER Visits 1 PT-OP-B Current Condition Start: 10/28/19 18:34 Freq: Status: Active Protocol: Document 10/29/19 16:04 [facility] (Rec: 10/29/19 18:37 [facility] [id number]) Current Condition History of Current Condition Onset Date Oct 08 worse Current Complaints LBP History of Current Condition Pt reports she has had LBP for a while that was mild for months and has been seeing chiropractor and getting better. She bent over to put a toy leticia bin Oct 08 and had a sharp pain that went into back and around to abdomen like a belt. She went to ER shortly after d/t pain and was given pain meds and saw primary who sent her here. Pt has not seen chiropractor recently d/t concern re: motion and unsure if helping. Last time she saw chiro oct 16. She is taking flexeril which her MD prescribed and she thinks it is helpful especially to help sleeping. Pt reports she changed her sleeping position to hips flexed as high as possible with pillow between and that helped. Standing is not as bad as sitting. Pt has has referal in to see plastic surgeon for breast reduction as she gets bruised by bra and has upper back and neck pain. She did PT for that a couple years ago still does stretches . Pt has hx of R inguinal hernia at 17 months old. Pt is so scared and tenative re: movement d/t fear of having that pain again. Sometimes going down is okay but coming up catches it. Pt has taken off 2 weeks and this is the end of it . 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 She is using a cushion to help her be higher now. She started some Serina ext exercises per a coworker who used to be a PT and that helped some. Pt has pressure in abdomen and feels like she can't hold her core because it creates more pain and has had some incontinence when she does that. When she was on those meds from the ER, she had 4 days of feeling great, but worse again. Pt has a normal vaginal US. Pt reports feels like she is not voiding completely bowel or bladder fully. Pt reports urge incontinence. Pt had 2 tramatic births. SHe was told her had a prolapse but did not have any sumptoms and they did nothing for her. Recent MD borja did not note prolapse. Pt reports 1st child was stuck on her pelvis for 3 hours and came out face first. 2nd kid was also stuck and they had to do vacuum assist to get him out. Kids are 9 and 11. Pt reports fall on tailbone where she was significantly bruised after slipping on wet stairs. This happened last winter. Treatment Goals Patient/Caregiver Goals Figure out how to make herself feel better, be able to move with less pain, improve incontinence, dec pain and pressure PT-OP-C Subjective Start: 10/28/19 18:34 Freq: Status: Active Protocol: Document 11/09/19 07:40 SP (Rec: 11/09/19 09:33 SP [id number]) OP-PT Subjective Patient Comments Patient Comments Pt reported L pirformis pain pre PT 01/14. Pt stated has been compliant with stretching and HEP instructed and the self STM ball on wall has helped with pain tolerance during the day but pain continues, is only able to sit on ball exercises short period of time. PT-OP-F Manual Assessment Start: 10/28/19 18:34 Freq: Status: Active Protocol: Document 10/29/19 16:04 [facility] (Rec: 10/29/19 18:37 [facility] [id number]) Manual Assessments Soft Tissue Assessment Soft Tissue Mobility Assessment tightnes in QL, ES & glutes Joint Mobility Assessment Joint Mobility Assessment R iliac crest higher than L, equal height of greater trochanters PT-OP-G Mobility & Gait Start: 10/28/19 18:34 Freq: Status: Active Protocol: Document 10/29/19 16:04 [facility] (Rec: 10/29/19 18:37 [facility] [id number]) OP Mobility Evaluation Bed Mobility Rolling performs log roll technique for supine<>Sit OP Gait Assessment Comments Gait Comments Pt amb with rigid upper torso and dec pelvis motion at this time. No notable ant elevation /post depression PT-OP-J Posture/Palpation/Skin Start: 10/28/19 18:34 Freq: Status: Active Protocol: Document 10/29/19 16:04 [facility] (Rec: 10/29/19 18:37 [facility] [id number]) Posture Evaluation Jonny Postural Classification System Jonny Postural Classifications Anterior/Posterior Lumbar Protective Mechanism Left AP 0 Lumbar Protective Mechanism Right AP 0 Lumbar Protective Mechanism Left PA 0 Lumbar Protective Mechanism Right PA 0 PT-OP-K Range of Motion Start: 10/28/19 18:34 Freq: Status: Active Protocol: Document 10/29/19 16:04 [facility] (Rec: 10/29/19 18:37 [facility] [id number]) Lumbar Spine Range of Motion Lumbar Spine Active Degrees Flexion 34 Extension 20 Rotation Left 64 Rotation Right 48 Lateral Flexion Left 14 Lateral Flexion Right 13 PT-OP-L Special Tests Start: 10/28/19 18:34 Freq: Status: Active Protocol: Document 10/29/19 16:04 [facility] (Rec: 10/29/19 18:37 [facility] [id number]) Special Tests Lumbar Spine Special Tests Straight Leg Raise Test Results positive B at about 15 deg Slump Test Results unable to test d/t position being uncomfortable PT-OP-M Strength Start: 10/28/19 18:34 Freq: Status: Active Protocol: Document 10/29/19 16:04 [facility] (Rec: 10/29/19 18:37 [facility] [id number]) Hip Strength Hip Manual Muscle Testing Right Reason Not Measured Pain Left Reason Not Measured Pain Knee Strength Knee Manual Muscle Testing Right Reason Not Measured Pain Left Reason Not Measured Pain Ankle/Foot Strength Ankle and Foot Manual Muscle Testing Right Reason Not Measured Pain Left Reason Not Measured Pain PT-OP-Q Treatments Start: 10/28/19 18:34 Freq: Status: Active Protocol: Document 11/09/19 07:40 SP (Rec: 11/09/19 09:33 SP [id number]) Therapeutic Exercises Supine Exercises lTR Supine Exercise Name focus on segmental control in comfortable range Side bilateral Reps/Minutes 10 Comments cued awareness of neutral spine pelvic tilt Supine Exercise Name post Reps/Minutes 2 x10 Comments tolerant range, contact cues lower ribcage Prone Exercises child's pose, side bend Side left Reps/Minutes 30 x2 Comments cued tolerant child's pose 1st then can add side bend (BUE to R, Pelvis L) Sitting Exercises QL stretch Sitting Exercise Name fig 4 pos w/ trunk lateral SB, and or rot,flex Side left Reps/Minutes 30 x2 Comments tolerant range, awareness side glide pelvis for distal stretch pelvis fig 4 PF stretch Sitting Exercise Name hip/glut stretch Side bilateral Reps/Minutes 20-30 x2 Comments cued comfort position then allow tolerant range stretch Other Exercises quadruped tail wag Side bilateral Reps/Minutes x5 Comments OK R, L pinching beyond slight beyond neutral- cued slow tolerant range quadruped cat camel Reps/Minutes x5 Comments cued tolerant range PT-OP-R Modalities Start: 10/28/19 18:34 Freq: Status: Active Protocol: Document 11/04/19 16:50 [facility] (Rec: 11/04/19 17:49 [facility] [id number]) Hot Pack/Cold Pack Treatment Hot Pack Location lumbosacral Patient Position Prone Treatment Duration (minutes) 10 PT-OP-T Assessment and Plan Start: 10/28/19 18:34 Freq: Status: Active Protocol: Document 11/09/19 07:40 SP (Rec: 11/09/19 09:33 SP [id number]) Physical Therapy Assessment Goals sitting Aircraft Load Controller Goal (LTG) Pt will be able to sit for as long as needed without inc pain. LTG Duration 12/28/19 ROM Short Term Goal (STG) Pt will have WNL ROM. 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 LTG Duration 12/28/19 strength Short Term Goal (STG) Pt will be indep with HEP. STG Duration 11/29/19 Usp Goal (LTG) Pt will score 5/5 LPM, VCT, and EFT in order to show improved core stability in order to allow her to participate in all work without inc pain. LTG Duration 12/28/19 Oswestry Impairment 24/50 STG Duration 11/29/19 LTG Duration 12/28/19 Assessment Summary Assessment Tx focused on HEP review. Cued trans ab facilitation with slow controlled movement and decreased glut/LE recruitment with improvement post cues contact lower ribcage. Added SK fallouts and quadruped activities with awareness of small tolerant range, and added same stretching in sitting for performance at work carryover with +results feedback, encouraged supine instructed last tx when at home. Pt stated use of ball at wall has been helpful and recommended continue. L pirformis pain decreased 4 to 2 /10 end of tx feels more fluid movement, less tension. Physical Therapy Plan Frequency and Duration Frequency of Treatment 1x/Week Duration of Treatment 8 weeks Plan of Care Start Date 11/06/19 Plan of Care End Date 01/01/20 Therapeutic Interventions Therapeutic Interventions Home Exercise Program,Manual Therapy,Neuromuscular Re- education,Self-Care/Home Management,Therapeutic Activities,Therapeutic Exercises Modalities Biofeedback,Electric Stimulation Next Visit Focus/Plan Next Note Type Treatment Note Next Visit Plan Assess response to last tx, core/ stretching see hand outs (all HEp givenk). Continue per PT POC: Begin with pelvic floor/ hip stretching, and then progress to manual release of L pelvic floor.
--- NOTE | 2019-11-11 08:35 | PT.OTN ---
Current Diagnoses Low back pain (11/11/19) Abnormal posture (11/11/19) Weakness (11/11/19) Physical Therapy Treatment Note PT-OP-A Visit Information Start: 10/28/19 18:34 Freq: Status: Active Protocol: Document 11/11/19 07:34 SP (Rec: 11/11/19 09:04 SP [id number]) Out-Patient Physical Therapy Visit Information Visit Information Visit Type Treatment Note Visit Start Time 07:36 Visit Stop Time 08:35 Total Visit Minutes 59 Visit Number 4 Number of TEST LEAD APPLICATION TESTING Visits 2 PT-OP-B Current Condition Start: 10/28/19 18:34 Freq: Status: Active Protocol: Document 10/29/19 16:04 [facility] (Rec: 10/29/19 18:37 [facility] [id number]) Current Condition History of Current Condition Onset Date Oct 08 worse Current Complaints LBP History of Current Condition Pt reports she has had LBP for a while that was mild for months and has been seeing chiropractor and getting better. She bent over to put a toy leticia bin Oct 08 and had a sharp pain that went into back and around to abdomen like a belt. She went to ER shortly after d/t pain and was given pain meds and saw primary who sent her here. Pt has not seen chiropractor recently d/t concern re: motion and unsure if helping. Last time she saw chiro oct 16. She is taking flexeril which her MD prescribed and she thinks it is helpful especially to help sleeping. Pt reports she changed her sleeping position to hips flexed as high as possible with pillow between and that helped. Standing is not as bad as sitting. Pt has has referal in to see plastic surgeon for breast reduction as she gets bruised by bra and has upper back and neck pain. She did PT for that a couple years ago still does stretches . Pt has hx of R inguinal hernia at 17 months old. Pt is so scared and tenative re: movement d/t fear of having that pain again. Sometimes going down is okay but coming up catches it. Pt has taken off 2 weeks and this is the end of it . 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 She is using a cushion to help her be higher now. She started some Serina ext exercises per a coworker who used to be a PT and that helped some. Pt has pressure in abdomen and feels like she can't hold her core because it creates more pain and has had some incontinence when she does that. When she was on those meds from the ER, she had 4 days of feeling great, but worse again. Pt has a normal vaginal US. Pt reports feels like she is not voiding completely bowel or bladder fully. Pt reports urge incontinence. Pt had 2 tramatic births. SHe was told her had a prolapse but did not have any sumptoms and they did nothing for her. Recent MD borja did not note prolapse. Pt reports 1st child was stuck on her pelvis for 3 hours and came out face first. 2nd kid was also stuck and they had to do vacuum assist to get him out. Kids are 9 and 11. Pt reports fall on tailbone where she was significantly bruised after slipping on wet stairs. This happened last winter. Treatment Goals Patient/Caregiver Goals Figure out how to make herself feel better, be able to move with less pain, improve incontinence, dec pain and pressure PT-OP-C Subjective Start: 10/28/19 18:34 Freq: Status: Active Protocol: Document 11/11/19 07:34 SP (Rec: 11/11/19 09:04 SP [id number]) OP-PT Subjective Patient Comments Patient Comments Pt reports L SI and glut area pain about 4-5/10 and achy into posterolateral thigh with the feeling like holding muscles in the area because if relaxes will experience increased sharp pain so probably always holding. PT-OP-F Manual Assessment Start: 10/28/19 18:34 Freq: Status: Active Protocol: Document 10/29/19 16:04 [facility] (Rec: 10/29/19 18:37 [facility] [id number]) Manual Assessments Soft Tissue Assessment Soft Tissue Mobility Assessment tightnes in QL, ES & glutes Joint Mobility Assessment Joint Mobility Assessment R iliac crest higher than L, equal height of greater trochanters PT-OP-G Mobility & Gait Start: 10/28/19 18:34 Freq: Status: Active Protocol: Document 10/29/19 16:04 [facility] (Rec: 10/29/19 18:37 [facility] [id number]) OP Mobility Evaluation Bed Mobility Rolling performs log roll technique for supine<>Sit OP Gait Assessment Comments Gait Comments Pt amb with rigid upper torso and dec pelvis motion at this time. No notable ant elevation /post depression PT-OP-J Posture/Palpation/Skin Start: 10/28/19 18:34 Freq: Status: Active Protocol: Document 10/29/19 16:04 [facility] (Rec: 10/29/19 18:37 [facility] [id number]) Posture Evaluation Jonny Postural Classification System Jonny Postural Classifications Anterior/Posterior Lumbar Protective Mechanism Left AP 0 Lumbar Protective Mechanism Right AP 0 Lumbar Protective Mechanism Left PA 0 Lumbar Protective Mechanism Right PA 0 PT-OP-K Range of Motion Start: 10/28/19 18:34 Freq: Status: Active Protocol: Document 10/29/19 16:04 [facility] (Rec: 10/29/19 18:37 [facility] [id number]) Lumbar Spine Range of Motion Lumbar Spine Active Degrees Flexion 34 Extension 20 Rotation Left 64 Rotation Right 48 Lateral Flexion Left 14 Lateral Flexion Right 13 PT-OP-L Special Tests Start: 10/28/19 18:34 Freq: Status: Active Protocol: Document 10/29/19 16:04 [facility] (Rec: 10/29/19 18:37 [facility] [id number]) Special Tests Lumbar Spine Special Tests Straight Leg Raise Test Results positive B at about 15 deg Slump Test Results unable to test d/t position being uncomfortable PT-OP-M Strength Start: 10/28/19 18:34 Freq: Status: Active Protocol: Document 10/29/19 16:04 [facility] (Rec: 10/29/19 18:37 [facility] [id number]) Hip Strength Hip Manual Muscle Testing Right Reason Not Measured Pain Left Reason Not Measured Pain Knee Strength Knee Manual Muscle Testing Right Reason Not Measured Pain Left Reason Not Measured Pain Ankle/Foot Strength Ankle and Foot Manual Muscle Testing Right Reason Not Measured Pain Left Reason Not Measured Pain PT-OP-Q Treatments Start: 10/28/19 18:34 Freq: Status: Active Protocol: Document 11/11/19 07:34 SP (Rec: 11/11/19 09:04 SP [id number]) Therapeutic Exercises Supine Exercises ITb stretch Side left Equipment Used strap Reps/Minutes 30 x2 stretch Supine Exercise Name hamstring Side left Equipment Used strap Reps/Minutes 30 sec Prone Exercises child's pose, side bend Side left Reps/Minutes 30 x2 Comments cued tolerant child's pose 1st then can add side bend (BUE to R, Pelvis L) Sitting Exercises Reclined sitting pull down Resistance Tb #1 Equipment Used rwandan ball Reps/Minutes 2x5 Comments cued chest lift, PPT, recline pull down TB core facilitation fig 4 PF stretch Sitting Exercise Name hip/glut stretch Side left Reps/Minutes 20-30 x2 Comments cued comfort position then allow tolerant range stretch Standing Exercises core resisted side stepping /press out Equipment Used TB #3 Reps/Minutes 5 steps x2 sets R and L, stationary press outs x10 R and L sit to stand Reps/Minutes x5 Comments cued hip hinge and posterior chain facilitation for stability Other Exercises quadruped cat camel Reps/Minutes x5 Comments cued tolerant range Manual Therapy Treatment Soft Tissue Mobilization 3 Body Location L Piriformis Mobilization Type Strumming,Sustained Pressure Intensity/Depth Moderate Body Position Sidelying 2 Body Location L ITB Mobilization Type Strumming,Sustained Pressure Intensity/Depth Moderate Body Position Sidelying Comments Self instruction on use of rolling pin Joint Mobilizations L iliam anterior rotation correction Joint L SI posterior rotated Direction anterior rotation isometric Body Position Hooklying Reps/Duration x3 Taping SI compression Body Location X SI Treatment Focus SI stabilization Type of Tape Kinesio Tape Skin Inspection normal color/texture Comments Cued if no adverse affects ( itchy, redness, irritation) can keep on and wearable in shower for 3-4 days otherwise remove. PT-OP-R Modalities Start: 10/28/19 18:34 Freq: Status: Active Protocol: Document 11/04/19 16:50 [facility] (Rec: 11/04/19 17:49 [facility] [id number]) Hot Pack/Cold Pack Treatment Hot Pack Location lumbosacral Patient Position Prone Treatment Duration (minutes) 10 PT-OP-T Assessment and Plan Start: 10/28/19 18:34 Freq: Status: Active Protocol: Document 11/11/19 07:34 SP (Rec: 11/11/19 09:04 SP [id number]) Physical Therapy Assessment Goals sitting Manager Hris Goal (LTG) Pt will be able to sit for as long as needed without inc pain. LTG Duration 12/28/19 ROM Short Term Goal (STG) Pt will have WNL ROM. 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 LTG Duration 12/28/19 strength Short Term Goal (STG) Pt will be indep with HEP. STG Duration 11/29/19 Manager Hris Goal (LTG) Pt will score 5/5 LPM, VCT, and EFT in order to show improved core stability in order to allow her to participate in all work without inc pain. LTG Duration 12/28/19 Oswestry Impairment 24/50 STG Duration 11/29/19 LTG Duration 12/28/19 Assessment Summary Assessment Tx focused on decrease of L gluteal pain with achiness into posterolateral thigh. No significant improvement post manual muscle energy, but manual and K taping felt better, feel more supportive . Pt requested another core exercise for at work standing/ seated, instructed resisted side stepping and recline seated pull down resisted with no adverse affects. Physical Therapy Plan Frequency and Duration Frequency of Treatment 1x/Week Duration of Treatment 8 weeks Plan of Care Start Date 11/06/19 Plan of Care End Date 01/01/20 Therapeutic Interventions Therapeutic Interventions Aquatic Therapy,Balance Training,Gait Training,Home Exercise Program,Joint Mobilizations,Manual Therapy, Neuromuscular Re-education, Patient/Caregiver Education, Self-Care/Home Management,Soft Tissue Mobilization,Taping, Therapeutic Activities, Therapeutic Exercises Modalities Biofeedback,Cold Pack/Ice Massage,Electric Stimulation, Hot Packs,Infrared Therapy, Iontophoresis,Traction- Mechanical,Ultrasound Next Visit Focus/Plan Next Note Type Treatment Note Next Visit Plan Assess response to last tx, core/ stretching see hand outs (all HEp givenk) and K taping SI. Continue per PT POC: Begin with pelvic floor/ hip stretching, and then progress to manual release of L pelvic floor.
--- NOTE | 2019-11-17 16:56 | PT.OTN ---
Current Diagnoses Low back pain (11/17/19) Abnormal posture (11/17/19) Weakness (11/17/19) Physical Therapy Treatment Note PT-OP-A Visit Information Start: 10/28/19 18:34 Freq: Status: Active Protocol: Document 11/11/19 07:34 SP (Rec: 11/11/19 09:04 SP [id number]) Out-Patient Physical Therapy Visit Information Visit Information Visit Type Treatment Note Visit Start Time 07:36 Visit Stop Time 08:35 Total Visit Minutes 59 Visit Number 4 Number of OPERATIONS DIRECTOR Visits 2 PT-OP-B Current Condition Start: 10/28/19 18:34 Freq: Status: Active Protocol: Document 10/29/19 16:04 [facility] (Rec: 10/29/19 18:37 [facility] [id number]) Current Condition History of Current Condition Onset Date Oct 08 worse Current Complaints LBP History of Current Condition Pt reports she has had LBP for a while that was mild for months and has been seeing chiropractor and getting better. She bent over to put a toy leticia bin Oct 08 and had a sharp pain that went into back and around to abdomen like a belt. She went to ER shortly after d/t pain and was given pain meds and saw primary who sent her here. Pt has not seen chiropractor recently d/t concern re: motion and unsure if helping. Last time she saw chiro oct 16. She is taking flexeril which her MD prescribed and she thinks it is helpful especially to help sleeping. Pt reports she changed her sleeping position to hips flexed as high as possible with pillow between and that helped. Standing is not as bad as sitting. Pt has has referal in to see plastic surgeon for breast reduction as she gets bruised by bra and has upper back and neck pain. She did PT for that a couple years ago still does stretches . Pt has hx of R inguinal hernia at 17 months old. Pt is so scared and tenative re: movement d/t fear of having that pain again. Sometimes going down is okay but coming up catches it. Pt has taken off 2 weeks and this is the end of it . 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 She is using a cushion to help her be higher now. She started some Serina ext exercises per a coworker who used to be a PT and that helped some. Pt has pressure in abdomen and feels like she can't hold her core because it creates more pain and has had some incontinence when she does that. When she was on those meds from the ER, she had 4 days of feeling great, but worse again. Pt has a normal vaginal US. Pt reports feels like she is not voiding completely bowel or bladder fully. Pt reports urge incontinence. Pt had 2 tramatic births. SHe was told her had a prolapse but did not have any sumptoms and they did nothing for her. Recent MD borja did not note prolapse. Pt reports 1st child was stuck on her pelvis for 3 hours and came out face first. 2nd kid was also stuck and they had to do vacuum assist to get him out. Kids are 9 and 11. Pt reports fall on tailbone where she was significantly bruised after slipping on wet stairs. This happened last winter. Treatment Goals Patient/Caregiver Goals Figure out how to make herself feel better, be able to move with less pain, improve incontinence, dec pain and pressure PT-OP-C Subjective Start: 10/28/19 18:34 Freq: Status: Active Protocol: Document 11/11/19 07:34 SP (Rec: 11/11/19 09:04 SP [id number]) OP-PT Subjective Patient Comments Patient Comments Pt reports L SI and glut area pain about 4-5/10 and achy into posterolateral thigh with the feeling like holding muscles in the area because if relaxes will experience increased sharp pain so probably always holding. PT-OP-F Manual Assessment Start: 10/28/19 18:34 Freq: Status: Active Protocol: Document 10/29/19 16:04 [facility] (Rec: 10/29/19 18:37 [facility] [id number]) Manual Assessments Soft Tissue Assessment Soft Tissue Mobility Assessment tightnes in QL, ES & glutes Joint Mobility Assessment Joint Mobility Assessment R iliac crest higher than L, equal height of greater trochanters PT-OP-G Mobility & Gait Start: 10/28/19 18:34 Freq: Status: Active Protocol: Document 10/29/19 16:04 [facility] (Rec: 10/29/19 18:37 [facility] [id number]) OP Mobility Evaluation Bed Mobility Rolling performs log roll technique for supine<>Sit OP Gait Assessment Comments Gait Comments Pt amb with rigid upper torso and dec pelvis motion at this time. No notable ant elevation /post depression PT-OP-J Posture/Palpation/Skin Start: 10/28/19 18:34 Freq: Status: Active Protocol: Document 10/29/19 16:04 [facility] (Rec: 10/29/19 18:37 [facility] [id number]) Posture Evaluation Jonny Postural Classification System Jonny Postural Classifications Anterior/Posterior Lumbar Protective Mechanism Left AP 0 Lumbar Protective Mechanism Right AP 0 Lumbar Protective Mechanism Left PA 0 Lumbar Protective Mechanism Right PA 0 PT-OP-K Range of Motion Start: 10/28/19 18:34 Freq: Status: Active Protocol: Document 10/29/19 16:04 [facility] (Rec: 10/29/19 18:37 [facility] [id number]) Lumbar Spine Range of Motion Lumbar Spine Active Degrees Flexion 34 Extension 20 Rotation Left 64 Rotation Right 48 Lateral Flexion Left 14 Lateral Flexion Right 13 PT-OP-L Special Tests Start: 10/28/19 18:34 Freq: Status: Active Protocol: Document 10/29/19 16:04 [facility] (Rec: 10/29/19 18:37 [facility] [id number]) Special Tests Lumbar Spine Special Tests Straight Leg Raise Test Results positive B at about 15 deg Slump Test Results unable to test d/t position being uncomfortable PT-OP-M Strength Start: 10/28/19 18:34 Freq: Status: Active Protocol: Document 10/29/19 16:04 [facility] (Rec: 10/29/19 18:37 [facility] [id number]) Hip Strength Hip Manual Muscle Testing Right Reason Not Measured Pain Left Reason Not Measured Pain Knee Strength Knee Manual Muscle Testing Right Reason Not Measured Pain Left Reason Not Measured Pain Ankle/Foot Strength Ankle and Foot Manual Muscle Testing Right Reason Not Measured Pain Left Reason Not Measured Pain PT-OP-Q Treatments Start: 10/28/19 18:34 Freq: Status: Active Protocol: Document 11/17/19 13:52 SAK (Rec: 11/17/19 14:32 SAK [id number]) Therapeutic Exercises Supine Exercises isometric knee push Reps/Minutes 10x Comments 90/90 position LE's supported december with TrA Reps/Minutes 10x TrA activation Reps/Minutes 10x supine pull down Resistance L1 TB Equipment Used bar Reps/Minutes 12x Comments for automatic core engagement, HEP ITb stretch Side left Equipment Used strap Reps/Minutes 30 x2 pelvic tilt Supine Exercise Name post Reps/Minutes 2 x10 Comments tolerant range, contact cues lower ribcage stretch Supine Exercise Name hamstring Side left Equipment Used strap Reps/Minutes 30 sec Prone Exercises child's pose, side bend Side left Reps/Minutes 30 x2 Comments cued tolerant child's pose 1st then can add side bend (BUE to R, Pelvis L) Standing Exercises sit to stand Reps/Minutes x5 Comments cued hip hinge and posterior chain facilitation for stability Other Exercises quadruped cat camel Reps/Minutes x10 Comments cued tolerant range Manual Therapy Treatment Taping SI compression Body Location X SI Treatment Focus SI stabilization Type of Tape Kinesio Tape Skin Inspection normal color/texture Comments Cued if no adverse affects ( itchy, redness, irritation) can keep on and wearable in shower for 3-4 days otherwise remove. PT-OP-R Modalities Start: 10/28/19 18:34 Freq: Status: Active Protocol: Document 11/04/19 16:50 DCW (Rec: 11/04/19 17:49 DC[facility] [id number]) Hot Pack/Cold Pack Treatment Hot Pack Location lumbosacral Patient Position Prone Treatment Duration (minutes) 10 PT-OP-T Assessment and Plan Start: 10/28/19 18:34 Freq: Status: Active Protocol: Document 11/17/19 13:52 [facility]AK (Rec: 11/17/19 14:32 [facility]AK [id number]) Physical Therapy Assessment Goals sitting Care Home Goal (LTG) Pt will be able to sit for as long as needed without inc pain. LTG Duration 12/28/19 ROM Short Term Goal (STG) Pt will have WNL ROM. 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 LTG Duration 12/28/19 strength Short Term Goal (STG) Pt will be indep with HEP. STG Duration 11/29/19 Permastone Applicator Goal (LTG) Pt will score 5/5 LPM, VCT, and EFT in order to show improved core stability in order to allow her to participate in all work without inc pain. LTG Duration 12/28/19 Oswestry Impairment 24/50 STG Duration 11/29/19 LTG Duration 12/28/19 Assessment Summary Assessment Patient has difficulty engaging core musculature but improved with cues and repetition today. Tends toward excess lordosis without cues. Responded well to kinesiotape last session. Physical Therapy Plan Frequency and Duration Frequency of Treatment 1x/Week Duration of Treatment 8 weeks Plan of Care Start Date 11/06/19 Plan of Care End Date 01/01/20 Therapeutic Interventions Therapeutic Interventions Aquatic Therapy,Balance Training,Gait Training,Home Exercise Program,Joint Mobilizations,Manual Therapy, Neuromuscular Re-education, Patient/Caregiver Education, Self-Care/Home Management,Soft Tissue Mobilization,Taping, Therapeutic Activities, Therapeutic Exercises Modalities Biofeedback,Cold Pack/Ice Massage,Electric Stimulation, Hot Packs,Infrared Therapy, Iontophoresis,Traction- Mechanical,Ultrasound Next Visit Focus/Plan Next Note Type Treatment Note Next Visit Plan Continue PT per POC.
--- NOTE | 2019-11-17 17:02 | PT.OTN ---
Current Diagnoses Low back pain (11/17/19) Abnormal posture (11/17/19) Weakness (11/17/19) Physical Therapy Treatment Note PT-OP-A Visit Information Start: 10/28/19 18:34 Freq: Status: Active Protocol: Document 11/17/19 13:52 SAK (Rec: 11/17/19 17:01 SAK [id number]) Out-Patient Physical Therapy Visit Information Visit Information Visit Type Treatment Note Visit Start Time 13:52 Visit Stop Time 14:45 Total Visit Minutes 53 Visit Number 5 Number of BLENDER/BRAZE APPLICATOR Visits 0 PT-OP-B Current Condition Start: 10/28/19 18:34 Freq: Status: Active Protocol: Document 10/29/19 16:04 [facility] (Rec: 10/29/19 18:37 [facility] [id number]) Current Condition History of Current Condition Onset Date Oct 08 worse Current Complaints LBP History of Current Condition Pt reports she has had LBP for a while that was mild for months and has been seeing chiropractor and getting better. She bent over to put a toy leticia bin Oct 08 and had a sharp pain that went into back and around to abdomen like a belt. She went to ER shortly after d/t pain and was given pain meds and saw primary who sent her here. Pt has not seen chiropractor recently d/t concern re: motion and unsure if helping. Last time she saw chiro oct 16. She is taking flexeril which her MD prescribed and she thinks it is helpful especially to help sleeping. Pt reports she changed her sleeping position to hips flexed as high as possible with pillow between and that helped. Standing is not as bad as sitting. Pt has has referal in to see plastic surgeon for breast reduction as she gets bruised by bra and has upper back and neck pain. She did PT for that a couple years ago still does stretches . Pt has hx of R inguinal hernia at 17 months old. Pt is so scared and tenative re: movement d/t fear of having that pain again. Sometimes going down is okay but coming up catches it. Pt has taken off 2 weeks and this is the end of it . 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 She is using a cushion to help her be higher now. She started some Serina ext exercises per a coworker who used to be a PT and that helped some. Pt has pressure in abdomen and feels like she can't hold her core because it creates more pain and has had some incontinence when she does that. When she was on those meds from the ER, she had 4 days of feeling great, but worse again. Pt has a normal vaginal US. Pt reports feels like she is not voiding completely bowel or bladder fully. Pt reports urge incontinence. Pt had 2 tramatic births. SHe was told her had a prolapse but did not have any sumptoms and they did nothing for her. Recent MD borja did not note prolapse. Pt reports 1st child was stuck on her pelvis for 3 hours and came out face first. 2nd kid was also stuck and they had to do vacuum assist to get him out. Kids are 9 and 11. Pt reports fall on tailbone where she was significantly bruised after slipping on wet stairs. This happened last winter. Treatment Goals Patient/Caregiver Goals Figure out how to make herself feel better, be able to move with less pain, improve incontinence, dec pain and pressure PT-OP-C Subjective Start: 10/28/19 18:34 Freq: Status: Active Protocol: Document 11/17/19 13:52 [facility] (Rec: 11/17/19 17:01 [facility] [id number]) OP-PT Subjective Patient Comments Patient Comments Reported good response to kinesiotape, pain increased after removal. mostly compliant to HEP. PT-OP-F Manual Assessment Start: 10/28/19 18:34 Freq: Status: Active Protocol: Document 10/29/19 16:04 [facility] (Rec: 10/29/19 18:37 [facility] [id number]) Manual Assessments Soft Tissue Assessment Soft Tissue Mobility Assessment tightnes in QL, ES & glutes Joint Mobility Assessment Joint Mobility Assessment R iliac crest higher than L, equal height of greater trochanters PT-OP-G Mobility & Gait Start: 10/28/19 18:34 Freq: Status: Active Protocol: Document 10/29/19 16:04 [facility] (Rec: 10/29/19 18:37 [facility] [id number]) OP Mobility Evaluation Bed Mobility Rolling performs log roll technique for supine<>Sit OP Gait Assessment Comments Gait Comments Pt amb with rigid upper torso and dec pelvis motion at this time. No notable ant elevation /post depression PT-OP-J Posture/Palpation/Skin Start: 10/28/19 18:34 Freq: Status: Active Protocol: Document 10/29/19 16:04 [facility] (Rec: 10/29/19 18:37 [facility] [id number]) Posture Evaluation Jonny Postural Classification System Jonny Postural Classifications Anterior/Posterior Lumbar Protective Mechanism Left AP 0 Lumbar Protective Mechanism Right AP 0 Lumbar Protective Mechanism Left PA 0 Lumbar Protective Mechanism Right PA 0 PT-OP-K Range of Motion Start: 10/28/19 18:34 Freq: Status: Active Protocol: Document 10/29/19 16:04 [facility] (Rec: 10/29/19 18:37 [facility] [id number]) Lumbar Spine Range of Motion Lumbar Spine Active Degrees Flexion 34 Extension 20 Rotation Left 64 Rotation Right 48 Lateral Flexion Left 14 Lateral Flexion Right 13 PT-OP-L Special Tests Start: 10/28/19 18:34 Freq: Status: Active Protocol: Document 10/29/19 16:04 [facility] (Rec: 10/29/19 18:37 [facility] [id number]) Special Tests Lumbar Spine Special Tests Straight Leg Raise Test Results positive B at about 15 deg Slump Test Results unable to test d/t position being uncomfortable PT-OP-M Strength Start: 10/28/19 18:34 Freq: Status: Active Protocol: Document 10/29/19 16:04 [facility] (Rec: 10/29/19 18:37 [facility] [id number]) Hip Strength Hip Manual Muscle Testing Right Reason Not Measured Pain Left Reason Not Measured Pain Knee Strength Knee Manual Muscle Testing Right Reason Not Measured Pain Left Reason Not Measured Pain Ankle/Foot Strength Ankle and Foot Manual Muscle Testing Right Reason Not Measured Pain Left Reason Not Measured Pain PT-OP-Q Treatments Start: 10/28/19 18:34 Freq: Status: Active Protocol: Document 11/17/19 13:52 [facility] (Rec: 11/17/19 14:32 SAK [id number]) Therapeutic Exercises Supine Exercises isometric knee push Reps/Minutes 10x Comments 90/90 position LE's supported december with TrA Reps/Minutes 10x TrA activation Reps/Minutes 10x supine pull down Resistance L1 TB Equipment Used bar Reps/Minutes 12x Comments for automatic core engagement, HEP ITb stretch Side left Equipment Used strap Reps/Minutes 30 x2 pelvic tilt Supine Exercise Name post Reps/Minutes 2 x10 Comments tolerant range, contact cues lower ribcage stretch Supine Exercise Name hamstring Side left Equipment Used strap Reps/Minutes 30 sec Prone Exercises child's pose, side bend Side left Reps/Minutes 30 x2 Comments cued tolerant child's pose 1st then can add side bend (BUE to R, Pelvis L) Standing Exercises sit to stand Reps/Minutes x5 Comments cued hip hinge and posterior chain facilitation for stability Other Exercises quadruped cat camel Reps/Minutes x10 Comments cued tolerant range Manual Therapy Treatment Taping SI compression Body Location X SI Treatment Focus SI stabilization Type of Tape Kinesio Tape Skin Inspection normal color/texture Comments Cued if no adverse affects ( itchy, redness, irritation) can keep on and wearable in shower for 3-4 days otherwise remove. PT-OP-R Modalities Start: 10/28/19 18:34 Freq: Status: Active Protocol: Document 11/17/19 13:52 [facility] (Rec: 11/17/19 17:02 [facility] [id number]) Hot Pack/Cold Pack Treatment Cold Pack Location l/s Patient Position Hooklying Treatment Duration (minutes) 10 Patient Tolerance Good PT-OP-T Assessment and Plan Start: 10/28/19 18:34 Freq: Status: Active Protocol: Document 11/17/19 13:52 [facility] (Rec: 11/17/19 14:32 [facility] [id number]) Physical Therapy Assessment Goals sitting Prison Goal (LTG) Pt will be able to sit for as long as needed without inc pain. LTG Duration 12/28/19 ROM Short Term Goal (STG) Pt will have WNL ROM. 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 LTG Duration 12/28/19 strength Short Term Goal (STG) Pt will be indep with HEP. STG Duration 11/29/19 Prison Goal (LTG) Pt will score 5/5 LPM, VCT, and EFT in order to show improved core stability in order to allow her to participate in all work without inc pain. LTG Duration 12/28/19 Oswestry Impairment 24/50 STG Duration 11/29/19 LTG Duration 12/28/19 Assessment Summary Assessment Patient has difficulty engaging core musculature but improved with cues and repetition today. Tends toward excess lordosis without cues. Responded well to kinesiotape last session. Physical Therapy Plan Frequency and Duration Frequency of Treatment 1x/Week Duration of Treatment 8 weeks Plan of Care Start Date 11/06/19 Plan of Care End Date 01/01/20 Therapeutic Interventions Therapeutic Interventions Aquatic Therapy,Balance Training,Gait Training,Home Exercise Program,Joint Mobilizations,Manual Therapy, Neuromuscular Re-education, Patient/Caregiver Education, Self-Care/Home Management,Soft Tissue Mobilization,Taping, Therapeutic Activities, Therapeutic Exercises Modalities Biofeedback,Cold Pack/Ice Massage,Electric Stimulation, Hot Packs,Infrared Therapy, Iontophoresis,Traction- Mechanical,Ultrasound Next Visit Focus/Plan Next Note Type Treatment Note Next Visit Plan Continue PT per POC.
--- NOTE | 2019-11-24 08:20 | PT.OTN ---
Current Diagnoses Low back pain (11/24/19) Abnormal posture (11/24/19) Weakness (11/24/19) Physical Therapy Treatment Note PT-OP-A Visit Information Start: 10/28/19 18:34 Freq: Status: Active Protocol: Document 11/24/19 07:45 SP (Rec: 11/24/19 11:45 SP [id number]) Out-Patient Physical Therapy Visit Information Visit Information Visit Type Treatment Note Visit Note 15 min late Visit Start Time 07:45 Visit Stop Time 08:20 Total Visit Minutes 35 Visit Number 6 Number of CREDENTIALING COORDINATOR Visits 1 PT-OP-B Current Condition Start: 10/28/19 18:34 Freq: Status: Active Protocol: Document 10/29/19 16:04 [facility] (Rec: 10/29/19 18:37 [facility] [id number]) Current Condition History of Current Condition Onset Date Oct 08 worse Current Complaints LBP History of Current Condition Pt reports she has had LBP for a while that was mild for months and has been seeing chiropractor and getting better. She bent over to put a toy leticia bin Oct 08 and had a sharp pain that went into back and around to abdomen like a belt. She went to ER shortly after d/t pain and was given pain meds and saw primary who sent her here. Pt has not seen chiropractor recently d/t concern re: motion and unsure if helping. Last time she saw chiro oct 16. She is taking flexeril which her MD prescribed and she thinks it is helpful especially to help sleeping. Pt reports she changed her sleeping position to hips flexed as high as possible with pillow between and that helped. Standing is not as bad as sitting. Pt has has referal in to see plastic surgeon for breast reduction as she gets bruised by bra and has upper back and neck pain. She did PT for that a couple years ago still does stretches . Pt has hx of R inguinal hernia at 17 months old. Pt is so scared and tenative re: movement d/t fear of having that pain again. Sometimes going down is okay but coming up catches it. Pt has taken off 2 weeks and this is the end of it . 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 She is using a cushion to help her be higher now. She started some Serina ext exercises per a coworker who used to be a PT and that helped some. Pt has pressure in abdomen and feels like she can't hold her core because it creates more pain and has had some incontinence when she does that. When she was on those meds from the ER, she had 4 days of feeling great, but worse again. Pt has a normal vaginal US. Pt reports feels like she is not voiding completely bowel or bladder fully. Pt reports urge incontinence. Pt had 2 tramatic births. SHe was told her had a prolapse but did not have any sumptoms and they did nothing for her. Recent MD borja did not note prolapse. Pt reports 1st child was stuck on her pelvis for 3 hours and came out face first. 2nd kid was also stuck and they had to do vacuum assist to get him out. Kids are 9 and 11. Pt reports fall on tailbone where she was significantly bruised after slipping on wet stairs. This happened last winter. Treatment Goals Patient/Caregiver Goals Figure out how to make herself feel better, be able to move with less pain, improve incontinence, dec pain and pressure PT-OP-C Subjective Start: 10/28/19 18:34 Freq: Status: Active Protocol: Document 11/24/19 07:45 SP (Rec: 11/24/19 11:45 SP [id number]) OP-PT Subjective Patient Comments Patient Comments Pt stated not as much of a pull when doing stretches and more mobility lately. PT-OP-F Manual Assessment Start: 10/28/19 18:34 Freq: Status: Active Protocol: Document 10/29/19 16:04 [facility] (Rec: 10/29/19 18:37 [facility] [id number]) Manual Assessments Soft Tissue Assessment Soft Tissue Mobility Assessment tightnes in QL, ES & glutes Joint Mobility Assessment Joint Mobility Assessment R iliac crest higher than L, equal height of greater trochanters PT-OP-G Mobility & Gait Start: 10/28/19 18:34 Freq: Status: Active Protocol: Document 10/29/19 16:04 [facility] (Rec: 10/29/19 18:37 [facility] [id number]) OP Mobility Evaluation Bed Mobility Rolling performs log roll technique for supine<>Sit OP Gait Assessment Comments Gait Comments Pt amb with rigid upper torso and dec pelvis motion at this time. No notable ant elevation /post depression PT-OP-J Posture/Palpation/Skin Start: 10/28/19 18:34 Freq: Status: Active Protocol: Document 10/29/19 16:04 [facility] (Rec: 10/29/19 18:37 [facility] [id number]) Posture Evaluation Jonny Postural Classification System Jonny Postural Classifications Anterior/Posterior Lumbar Protective Mechanism Left AP 0 Lumbar Protective Mechanism Right AP 0 Lumbar Protective Mechanism Left PA 0 Lumbar Protective Mechanism Right PA 0 PT-OP-K Range of Motion Start: 10/28/19 18:34 Freq: Status: Active Protocol: Document 10/29/19 16:04 [facility] (Rec: 10/29/19 18:37 [facility] [id number]) Lumbar Spine Range of Motion Lumbar Spine Active Degrees Flexion 34 Extension 20 Rotation Left 64 Rotation Right 48 Lateral Flexion Left 14 Lateral Flexion Right 13 PT-OP-L Special Tests Start: 10/28/19 18:34 Freq: Status: Active Protocol: Document 10/29/19 16:04 [facility] (Rec: 10/29/19 18:37 [facility] [id number]) Special Tests Lumbar Spine Special Tests Straight Leg Raise Test Results positive B at about 15 deg Slump Test Results unable to test d/t position being uncomfortable PT-OP-M Strength Start: 10/28/19 18:34 Freq: Status: Active Protocol: Document 10/29/19 16:04 [facility] (Rec: 10/29/19 18:37 [facility] [id number]) Hip Strength Hip Manual Muscle Testing Right Reason Not Measured Pain Left Reason Not Measured Pain Knee Strength Knee Manual Muscle Testing Right Reason Not Measured Pain Left Reason Not Measured Pain Ankle/Foot Strength Ankle and Foot Manual Muscle Testing Right Reason Not Measured Pain Left Reason Not Measured Pain PT-OP-Q Treatments Start: 10/28/19 18:34 Freq: Status: Active Protocol: Document 11/24/19 07:45 SP (Rec: 11/24/19 11:45 SP [id number]) Therapeutic Exercises Supine Exercises TS ext and rolling foam roller Reps/Minutes 3 min Prone Exercises child's pose, side bend Side left Reps/Minutes 30 x2 Comments cued tolerant child's pose 1st then can add side bend (BUE to R, Pelvis L) Sidelying Exercises TS rotation Side left Reps/Minutes 30 x2 Standing Exercises [place] mobilitiy pose Side bilateral Reps/Minutes 2x5 Comments cued slow movement Manual Therapy Treatment Soft Tissue Mobilization L ES, paraspinals Mobilization Type Cross-Friction,Myofascial Release Intensity/Depth Moderate Body Position Prone 1 Body Location L lower trap, distal lat, Rhomoid, ES Mobilization Type Rolling,Sustained Pressure Intensity/Depth Moderate Body Position Standing Comments racquet ball wall in sock Taping SI compression Body Location X SI Treatment Focus SI stabilization Type of Tape Kinesio Tape Skin Inspection normal color/texture Comments Cued if no adverse affects ( itchy, redness, irritation) can keep on and wearable in shower for 3-4 days otherwise remove. PT-OP-R Modalities Start: 10/28/19 18:34 Freq: Status: Active Protocol: Document 11/17/19 13:52 [facility] (Rec: 11/17/19 17:02 [facility]AK [id number]) Hot Pack/Cold Pack Treatment Cold Pack Location l/s Patient Position Hooklying Treatment Duration (minutes) 10 Patient Tolerance Good PT-OP-T Assessment and Plan Start: 10/28/19 18:34 Freq: Status: Active Protocol: Document 11/24/19 07:45 SP (Rec: 11/24/19 11:45 SP [id number]) Physical Therapy Assessment Goals sitting Shelter Goal (LTG) Pt will be able to sit for as long as needed without inc pain. LTG Duration 12/28/19 ROM Short Term Goal (STG) Pt will have WNL ROM. 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 LTG Duration 12/28/19 strength Short Term Goal (STG) Pt will be indep with HEP. STG Duration 11/29/19 Shelter Goal (LTG) Pt will score 5/5 LPM, VCT, and EFT in order to show improved core stability in order to allow her to participate in all work without inc pain. LTG Duration 12/28/19 Oswestry Impairment 24/50 STG Duration 11/29/19 LTG Duration 12/28/19 Assessment Summary Assessment Pt responded well to tx today, focused on manual and self STMs and TS/LS mobiltiy to decreased pain along ES T5- L3 . Alot looser post tx. Physical Therapy Plan Frequency and Duration Frequency of Treatment 1x/Week Duration of Treatment 8 weeks Plan of Care Start Date 11/06/19 Plan of Care End Date 01/01/20 Therapeutic Interventions Therapeutic Interventions Aquatic Therapy,Balance Training,Gait Training,Home Exercise Program,Joint Mobilizations,Manual Therapy, Neuromuscular Re-education, Patient/Caregiver Education, Self-Care/Home Management,Soft Tissue Mobilization,Taping, Therapeutic Activities, Therapeutic Exercises Modalities Biofeedback,Cold Pack/Ice Massage,Electric Stimulation, Hot Packs,Infrared Therapy, Iontophoresis,Traction- Mechanical,Ultrasound Next Visit Focus/Plan Next Note Type Treatment Note Next Visit Plan Assess reponse to manual and self STMs along with triangle pose and TS ext/foam rolling las ttx. Continue PT per POC.
--- NOTE | 2019-12-01 09:21 | PT.OTN ---
Current Diagnoses Low back pain (12/01/19) Abnormal posture (12/01/19) Weakness (12/01/19) Physical Therapy Treatment Note PT-OP-A Visit Information Start: 10/28/19 18:34 Freq: Status: Active Protocol: Document 12/01/19 07:35 [facility] (Rec: 12/01/19 09:21 [facility] [id number]) Out-Patient Physical Therapy Visit Information Visit Information Visit Type Treatment Note Visit Start Time 07:35 Visit Stop Time 08:30 Total Visit Minutes 55 Visit Number 7 Number of [facility] Visits 0 PT-OP-B Current Condition Start: 10/28/19 18:34 Freq: Status: Active Protocol: Document 10/29/19 16:04 [facility] (Rec: 10/29/19 18:37 [facility] [id number]) Current Condition History of Current Condition Onset Date Oct 08 worse Current Complaints LBP History of Current Condition Pt reports she has had LBP for a while that was mild for months and has been seeing chiropractor and getting better. She bent over to put a toy leticia bin Oct 08 and had a sharp pain that went into back and around to abdomen like a belt. She went to ER shortly after d/t pain and was given pain meds and saw primary who sent her here. Pt has not seen chiropractor recently d/t concern re: motion and unsure if helping. Last time she saw chiro oct 16. She is taking flexeril which her MD prescribed and she thinks it is helpful especially to help sleeping. Pt reports she changed her sleeping position to hips flexed as high as possible with pillow between and that helped. Standing is not as bad as sitting. Pt has has referal in to see plastic surgeon for breast reduction as she gets bruised by bra and has upper back and neck pain. She did PT for that a couple years ago still does stretches . Pt has hx of R inguinal hernia at 17 months old. Pt is so scared and tenative re: movement d/t fear of having that pain again. Sometimes going down is okay but coming up catches it. Pt has taken off 2 weeks and this is the end of it . 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 She is using a cushion to help her be higher now. She started some Serina ext exercises per a coworker who used to be a PT and that helped some. Pt has pressure in abdomen and feels like she can't hold her core because it creates more pain and has had some incontinence when she does that. When she was on those meds from the ER, she had 4 days of feeling great, but worse again. Pt has a normal vaginal US. Pt reports feels like she is not voiding completely bowel or bladder fully. Pt reports urge incontinence. Pt had 2 tramatic births. SHe was told her had a prolapse but did not have any sumptoms and they did nothing for her. Recent MD borja did not note prolapse. Pt reports 1st child was stuck on her pelvis for 3 hours and came out face first. 2nd kid was also stuck and they had to do vacuum assist to get him out. Kids are 9 and 11. Pt reports fall on tailbone where she was significantly bruised after slipping on wet stairs. This happened last winter. Treatment Goals Patient/Caregiver Goals Figure out how to make herself feel better, be able to move with less pain, improve incontinence, dec pain and pressure PT-OP-C Subjective Start: 10/28/19 18:34 Freq: Status: Active Protocol: Document 12/01/19 07:35 [facility] (Rec: 12/01/19 09:21 [facility] [id number]) OP-PT Subjective Patient Comments Patient Comments Pt reprots compliance with stretches. 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 PT-OP-F Manual Assessment Start: 10/28/19 18:34 Freq: Status: Active Protocol: Document 10/29/19 16:04 [facility] (Rec: 10/29/19 18:37 [facility] [id number]) Manual Assessments Soft Tissue Assessment Soft Tissue Mobility Assessment tightnes in QL, ES & glutes Joint Mobility Assessment Joint Mobility Assessment R iliac crest higher than L, equal height of greater trochanters PT-OP-G Mobility & Gait Start: 10/28/19 18:34 Freq: Status: Active Protocol: Document 10/29/19 16:04 [facility] (Rec: 10/29/19 18:37 [facility] [id number]) OP Mobility Evaluation Bed Mobility Rolling performs log roll technique for supine<>Sit OP Gait Assessment Comments Gait Comments Pt amb with rigid upper torso and dec pelvis motion at this time. No notable ant elevation /post depression PT-OP-J Posture/Palpation/Skin Start: 10/28/19 18:34 Freq: Status: Active Protocol: Document 10/29/19 16:04 [facility] (Rec: 10/29/19 18:37 [facility] [id number]) Posture Evaluation [facility] Postural Classification System Jonny Postural Classifications Anterior/Posterior Lumbar Protective Mechanism Left AP 0 Lumbar Protective Mechanism Right AP 0 Lumbar Protective Mechanism Left PA 0 Lumbar Protective Mechanism Right PA 0 PT-OP-K Range of Motion Start: 10/28/19 18:34 Freq: Status: Active Protocol: Document 10/29/19 16:04 [facility] (Rec: 10/29/19 18:37 [facility] [id number]) Lumbar Spine Range of Motion Lumbar Spine Active Degrees Flexion 34 Extension 20 Rotation Left 64 Rotation Right 48 Lateral Flexion Left 14 Lateral Flexion Right 13 PT-OP-L Special Tests Start: 10/28/19 18:34 Freq: Status: Active Protocol: Document 10/29/19 16:04 [facility] (Rec: 10/29/19 18:37 [facility] [id number]) Special Tests Lumbar Spine Special Tests Straight Leg Raise Test Results positive B at about 15 deg Slump Test Results unable to test d/t position being uncomfortable PT-OP-M Strength Start: 10/28/19 18:34 Freq: Status: Active Protocol: Document 10/29/19 16:04 [facility] (Rec: 10/29/19 18:37 [facility] [id number]) Hip Strength Hip Manual Muscle Testing Right Reason Not Measured Pain Left Reason Not Measured Pain Knee Strength Knee Manual Muscle Testing Right Reason Not Measured Pain Left Reason Not Measured Pain Ankle/Foot Strength Ankle and Foot Manual Muscle Testing Right Reason Not Measured Pain Left Reason Not Measured Pain PT-OP-Q Treatments Start: 10/28/19 18:34 Freq: Status: Active Protocol: Document 12/01/19 07:35 [facility] (Rec: 12/01/19 09:21 [facility] [id number]) Therapeutic Exercises Supine Exercises isometric knee push Reps/Minutes 10sec x2 B Comments 90/90 position single leg TrA activation Supine Exercise Name w/heel slide then with BKFO Side bilateral Reps/Minutes 20 ea Manual Therapy Treatment Soft Tissue Mobilization L ES, paraspinals Mobilization Type Cross-Friction,Myofascial Release Intensity/Depth Moderate Body Position Sidelying 2 Body Location glutes L Mobilization Type Rolling Joint Mobilizations sacrum Joint caudal & upa L FM 1 Joint hip L Direction ER FM PT-OP-R Modalities Start: 10/28/19 18:34 Freq: Status: Active Protocol: Document 12/01/19 07:35 [facility] (Rec: 12/01/19 09:21 [facility] [id number]) Hot Pack/Cold Pack Treatment Hot Pack Location lumbosacral Patient Position Hooklying Treatment Duration (minutes) 15 PT-OP-T Assessment and Plan Start: 10/28/19 18:34 Freq: Status: Active Protocol: Document 12/01/19 07:35 [facility] (Rec: 12/01/19 09:21 [facility] [id number]) Physical Therapy Assessment Goals sitting Fruit Tester Goal (LTG) Pt will be able to sit for as long as needed without inc pain. LTG Duration 12/28/19 ROM Short Term Goal (STG) Pt will have WNL ROM. 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 LTG Duration 12/28/19 strength Short Term Goal (STG) Pt will be indep with HEP. STG Duration 11/29/19 Fruit Tester Goal (LTG) Pt will score 5/5 LPM, VCT, and EFT in order to show improved core stability in order to allow her to participate in all work without inc pain. LTG Duration 12/28/19 Oswestry Impairment 24/50 STG Duration 11/29/19 LTG Duration 12/28/19 Assessment Summary Assessment Pt had improved sacral mobility and L hip mobility with manual treatment. She had inc hip ER after hip mob & STM to glutes. able to tolerate core exercises without inc back pain. Physical Therapy Plan Frequency and Duration Frequency of Treatment 1x/Week Duration of Treatment 8 weeks Plan of Care Start Date 11/06/19 Plan of Care End Date 01/01/20 Next Visit Focus/Plan Next Note Type Treatment Note Next Visit Plan Assess response to manaul and addition of core exerices, PNF of pelvis & cont to work on pelvis & hip mobility
--- NOTE | 2019-12-03 12:21 | PT.OTN ---
Current Diagnoses Low back pain (12/03/19) Abnormal posture (12/03/19) Weakness (12/03/19) Physical Therapy Treatment Note PT-OP-A Visit Information Start: 10/28/19 18:34 Freq: Status: Active Protocol: Document 12/03/19 07:30 [facility] (Rec: 12/03/19 12:21 [facility] [id number]) Out-Patient Physical Therapy Visit Information Visit Information Visit Type Treatment Note Visit Start Time 07:36 Visit Stop Time 08:25 Total Visit Minutes 49 Visit Number 8 Number of MINER Visits 0 PT-OP-B Current Condition Start: 10/28/19 18:34 Freq: Status: Active Protocol: Document 10/29/19 16:04 [facility] (Rec: 10/29/19 18:37 [facility] [id number]) Current Condition History of Current Condition Onset Date Oct 08 worse Current Complaints LBP History of Current Condition Pt reports she has had LBP for a while that was mild for months and has been seeing chiropractor and getting better. She bent over to put a toy leticia bin Oct 08 and had a sharp pain that went into back and around to abdomen like a belt. She went to ER shortly after d/t pain and was given pain meds and saw primary who sent her here. Pt has not seen chiropractor recently d/t concern re: motion and unsure if helping. Last time she saw chiro oct 16. She is taking flexeril which her MD prescribed and she thinks it is helpful especially to help sleeping. Pt reports she changed her sleeping position to hips flexed as high as possible with pillow between and that helped. Standing is not as bad as sitting. Pt has has referal in to see plastic surgeon for breast reduction as she gets bruised by bra and has upper back and neck pain. She did PT for that a couple years ago still does stretches . Pt has hx of R inguinal hernia at 17 months old. Pt is so scared and tenative re: movement d/t fear of having that pain again. Sometimes going down is okay but coming up catches it. Pt has taken off 2 weeks and this is the end of it . 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 She is using a cushion to help her be higher now. She started some Serina ext exercises per a coworker who used to be a PT and that helped some. Pt has pressure in abdomen and feels like she can't hold her core because it creates more pain and has had some incontinence when she does that. When she was on those meds from the ER, she had 4 days of feeling great, but worse again. Pt has a normal vaginal US. Pt reports feels like she is not voiding completely bowel or bladder fully. Pt reports urge incontinence. Pt had 2 tramatic births. SHe was told her had a prolapse but did not have any sumptoms and they did nothing for her. Recent MD borja did not note prolapse. Pt reports 1st child was stuck on her pelvis for 3 hours and came out face first. 2nd kid was also stuck and they had to do vacuum assist to get him out. Kids are 9 and 11. Pt reports fall on tailbone where she was significantly bruised after slipping on wet stairs. This happened last winter. Treatment Goals Patient/Caregiver Goals Figure out how to make herself feel better, be able to move with less pain, improve incontinence, dec pain and pressure PT-OP-C Subjective Start: 10/28/19 18:34 Freq: Status: Active Protocol: Document 12/03/19 07:30 [facility] (Rec: 12/03/19 12:21 [facility] [id number]) OP-PT Subjective Patient Comments Patient Comments Pt reports being sore after last treatment for 1 day. Better now PT-OP-F Manual Assessment Start: 10/28/19 18:34 Freq: Status: Active Protocol: Document 10/29/19 16:04 [facility] (Rec: 10/29/19 18:37 [facility] [id number]) Manual Assessments Soft Tissue Assessment Soft Tissue Mobility Assessment tightnes in QL, ES & glutes Joint Mobility Assessment Joint Mobility Assessment R iliac crest higher than L, equal height of greater trochanters PT-OP-G Mobility & Gait Start: 10/28/19 18:34 Freq: Status: Active Protocol: Document 10/29/19 16:04 [facility] (Rec: 10/29/19 18:37 [facility] [id number]) OP Mobility Evaluation Bed Mobility Rolling performs log roll technique for supine<>Sit OP Gait Assessment Comments Gait Comments Pt amb with rigid upper torso and dec pelvis motion at this time. No notable ant elevation /post depression PT-OP-J Posture/Palpation/Skin Start: 10/28/19 18:34 Freq: Status: Active Protocol: Document 10/29/19 16:04 [facility] (Rec: 10/29/19 18:37 [facility] [id number]) Posture Evaluation Jonny Postural Classification System Jonny Postural Classifications Anterior/Posterior Lumbar Protective Mechanism Left AP 0 Lumbar Protective Mechanism Right AP 0 Lumbar Protective Mechanism Left PA 0 Lumbar Protective Mechanism Right PA 0 PT-OP-K Range of Motion Start: 10/28/19 18:34 Freq: Status: Active Protocol: Document 10/29/19 16:04 [facility] (Rec: 10/29/19 18:37 [facility] [id number]) Lumbar Spine Range of Motion Lumbar Spine Active Degrees Flexion 34 Extension 20 Rotation Left 64 Rotation Right 48 Lateral Flexion Left 14 Lateral Flexion Right 13 PT-OP-L Special Tests Start: 10/28/19 18:34 Freq: Status: Active Protocol: Document 10/29/19 16:04 [facility] (Rec: 10/29/19 18:37 [facility] [id number]) Special Tests Lumbar Spine Special Tests Straight Leg Raise Test Results positive B at about 15 deg Slump Test Results unable to test d/t position being uncomfortable PT-OP-M Strength Start: 10/28/19 18:34 Freq: Status: Active Protocol: Document 10/29/19 16:04 [facility] (Rec: 10/29/19 18:37 [facility] [id number]) Hip Strength Hip Manual Muscle Testing Right Reason Not Measured Pain Left Reason Not Measured Pain Knee Strength Knee Manual Muscle Testing Right Reason Not Measured Pain Left Reason Not Measured Pain Ankle/Foot Strength Ankle and Foot Manual Muscle Testing Right Reason Not Measured Pain Left Reason Not Measured Pain PT-OP-Q Treatments Start: 10/28/19 18:34 Freq: Status: Active Protocol: Document 12/03/19 07:30 [facility] (Rec: 12/03/19 12:21 [facility] [id number]) Therapeutic Exercises Supine Exercises march with TrA Reps/Minutes 10x TrA activation Supine Exercise Name w/heel slide then with BKFO Side bilateral Reps/Minutes 20 ea Manual Therapy Treatment Soft Tissue Mobilization 3 Body Location L ITB Mobilization Type Rolling Intensity/Depth Superficial Body Position Sidelying 2 Body Location glutes L Mobilization Type Rolling Intensity/Depth Superficial Body Position Sidelying 1 Body Location L QL and ant/post along border of iliac crest lat Mobilization Type Myofascial Release,Rolling Intensity/Depth Moderate Body Position Sidelying Comments w/gentle rocking back/forth into ant elevation/post depression PT-OP-R Modalities Start: 10/28/19 18:34 Freq: Status: Active Protocol: Document 12/03/19 07:30 [facility] (Rec: 12/03/19 12:21 [facility] [id number]) Hot Pack/Cold Pack Treatment Hot Pack Location lumbosacral Patient Position Hooklying Treatment Duration (minutes) 10 PT-OP-T Assessment and Plan Start: 10/28/19 18:34 Freq: Status: Active Protocol: Document 12/03/19 07:30 [facility] (Rec: 12/03/19 12:21 [facility] [id number]) Physical Therapy Assessment Goals sitting Airplane Designer Goal (LTG) Pt will be able to sit for as long as needed without inc pain. LTG Duration 12/28/19 ROM Short Term Goal (STG) Pt will have WNL ROM. 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 LTG Duration 12/28/19 strength Short Term Goal (STG) Pt will be indep with HEP. STG Duration 11/29/19 Mcfp Goal (LTG) Pt will score 5/5 LPM, VCT, and EFT in order to show improved core stability in order to allow her to participate in all work without inc pain. LTG Duration 12/28/19 Oswestry Impairment 24/50 STG Duration 11/29/19 LTG Duration 12/28/19 Assessment Summary Assessment Cueing required for core exercises especially with heel slides to maintainin neutral back psotion. Unable to go into L ant elevation or post depresion without pain likely d/t tightness of lat structures. she had improved soft tissue mobility after treatment but STM was more superficial today to avoid inc pt pain. Physical Therapy Plan Frequency and Duration Frequency of Treatment 1x/Week Duration of Treatment 8 weeks Plan of Care Start Date 11/06/19 Plan of Care End Date 01/01/20 Next Visit Focus/Plan Next Note Type Treatment Note Next Visit Plan Try to advance core, cont to work on soft tissue mobility & gentle joint mobs as tolerated
--- NOTE | 2019-12-07 18:56 | PT.OTN ---
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 She bent over to put a toy leticia bin Oct 08 and had a sharp pain that went into back and around to abdomen like a belt. She went to ER shortly after d/t pain and was given pain meds and saw primary who sent her here. Pt has not seen chiropractor recently d/t concern re: motion and unsure if helping. Last time she saw chiro oct 16. She is taking flexeril which her MD prescribed and she thinks it is helpful especially to help sleeping. Pt reports she changed her sleeping position to hips flexed as high as possible with pillow between and that helped. Standing is not as bad as sitting. Pt has has referal in to see plastic surgeon for breast reduction as she gets bruised by bra and has upper back and neck pain. She did PT for that a couple years ago still does stretches . Pt has hx of R inguinal hernia at 17 months old. Pt is so scared and tenative re: movement d/t fear of having that pain again. Sometimes going down is okay but coming up catches it. Pt has taken off 2 weeks and this is the end of it . 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 She is using a cushion to help her be higher now. She started some Serina ext exercises per a coworker who used to be a PT and that helped some. Pt has pressure in abdomen and feels like she can't hold her core because it creates more pain and has had some incontinence when she does that. When she was on those meds from the ER, she had 4 days of feeling great, but worse again. Pt has a normal vaginal US. Pt reports feels like she is not voiding completely bowel or bladder fully. Pt reports urge incontinence. Pt had 2 tramatic births. SHe was told her had a prolapse but did not have any sumptoms and they did nothing for her. Recent MD borja did not note prolapse. Pt reports 1st child was stuck on her pelvis for 3 hours and came out face first. 2nd kid was also stuck and they had to do vacuum assist to get him out. Kids are 9 and 11. Pt reports fall on tailbone where she was significantly bruised after slipping on wet stairs. This happened last winter. Treatment Goals Patient/Caregiver Goals Figure out how to make herself feel better, be able to move with less pain, improve incontinence, dec pain and pressure PT-OP-C Subjective Start: 10/28/19 18:34 Freq: Status: Active Protocol: Document 12/07/19 18:49 [facility] (Rec: 12/07/19 18:56 [facility] [id number]) OP-PT Subjective Patient Comments Patient Comments Pt reports soreness after back to back appt w[facility] last week. Notes she is doing better today. Difficultyw ith heel slide exercise. PT-OP-F Manual Assessment Start: 10/28/19 18:34 Freq: Status: Active Protocol: Document 10/29/19 16:04 [facility] (Rec: 10/29/19 18:37 [facility] [id number]) Manual Assessments Soft Tissue Assessment Soft Tissue Mobility Assessment tightnes in QL, ES & glutes Joint Mobility Assessment Joint Mobility Assessment R iliac crest higher than L, equal height of greater trochanters PT-OP-G Mobility & Gait Start: 10/28/19 18:34 Freq: Status: Active Protocol: Document 10/29/19 16:04 [facility] (Rec: 10/29/19 18:37 [facility] [id number]) OP Mobility Evaluation Bed Mobility Rolling performs log roll technique for supine<>Sit OP Gait Assessment Comments Gait Comments Pt amb with rigid upper torso and dec pelvis motion at this time. No notable ant elevation /post depression PT-OP-J Posture/Palpation/Skin Start: 10/28/19 18:34 Freq: Status: Active Protocol: Document 10/29/19 16:04 [facility] (Rec: 10/29/19 18:37 [facility] [id number]) Posture Evaluation Jonny Postural Classification System Jonny Postural Classifications Anterior/Posterior Lumbar Protective Mechanism Left AP 0 Lumbar Protective Mechanism Right AP 0 Lumbar Protective Mechanism Left PA 0 Lumbar Protective Mechanism Right PA 0 PT-OP-K Range of Motion Start: 10/28/19 18:34 Freq: Status: Active Protocol: Document 10/29/19 16:04 [facility] (Rec: 10/29/19 18:37 [facility] [id number]) Lumbar Spine Range of Motion Lumbar Spine Active Degrees Flexion 34 Extension 20 Rotation Left 64 Rotation Right 48 Lateral Flexion Left 14 Lateral Flexion Right 13 PT-OP-L Special Tests Start: 10/28/19 18:34 Freq: Status: Active Protocol: Document 10/29/19 16:04 [facility] (Rec: 10/29/19 18:37 [facility] [id number]) Special Tests Lumbar Spine Special Tests Straight Leg Raise Test Results positive B at about 15 deg Slump Test Results unable to test d/t position being uncomfortable PT-OP-M Strength Start: 10/28/19 18:34 Freq: Status: Active Protocol: Document 10/29/19 16:04 [facility] (Rec: 10/29/19 18:37 [facility] [id number]) Hip Strength Hip Manual Muscle Testing Right Reason Not Measured Pain Left Reason Not Measured Pain Knee Strength Knee Manual Muscle Testing Right Reason Not Measured Pain Left Reason Not Measured Pain Ankle/Foot Strength Ankle and Foot Manual Muscle Testing Right Reason Not Measured Pain Left Reason Not Measured Pain PT-OP-Q Treatments Start: 10/28/19 18:34 Freq: Status: Active Protocol: Document 12/07/19 18:49 [facility] (Rec: 12/07/19 18:56 [facility] [id number]) Therapeutic Exercises Supine Exercises breathing Supine Exercise Name diaphragmatic breathing w/ faciliation manually TrA activation Supine Exercise Name w/heel slide Side bilateral Reps/Minutes 15 Manual Therapy Treatment Soft Tissue Mobilization 3 Body Location L diaphram Mobilization Type Sustained Pressure Intensity/Depth Moderate Body Position Supine Comments w/UE movements 2 Body Location L iliacus & iliac fossa Mobilization Type Strumming,Sustained Pressure Intensity/Depth Superficial Body Position Hooklying Comments w/B UE flex 1 Body Location L QL and ant/post sup border of iliac crest lat Mobilization Type Myofascial Release,Rolling Intensity/Depth Moderate Body Position Sidelying Comments w/gentle rocking back/forth into ant elevation/post depression & L arm flex PT-OP-R Modalities Start: 10/28/19 18:34 Freq: Status: Active Protocol: Document 12/07/19 18:49 [facility] (Rec: 12/07/19 18:56 [facility] [id number]) Hot Pack/Cold Pack Treatment Hot Pack Location lumbosacral & L hip Patient Position Hooklying Treatment Duration (minutes) 15 PT-OP-T Assessment and Plan Start: 10/28/19 18:34 Freq: Status: Active Protocol: Document 12/07/19 18:49 [facility] (Rec: 12/07/19 18:56 [facility] [id number]) Physical Therapy Assessment Goals sitting Hand Umbrella Tipper Goal (LTG) Pt will be able to sit for as long as needed without inc pain. LTG Duration 12/28/19 ROM Short Term Goal (STG) Pt will have WNL ROM. 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 LTG Duration 12/28/19 strength Short Term Goal (STG) Pt will be indep with HEP. STG Duration 11/29/19 Fpc Goal (LTG) Pt will score 5/5 LPM, VCT, and EFT in order to show improved core stability in order to allow her to participate in all work without inc pain. LTG Duration 12/28/19 Oswestry Impairment 24/50 STG Duration 11/29/19 LTG Duration 12/28/19 Assessment Summary Assessment Pt had improvement with ability to extend L hip after manual and was able to extend further in supine withotu apin . She has signfiicant tightenss in L Lat fascia & ant to iliac crest which may be visceral or hip flexor. Pt had to void after ant STM and was able to fully void after STM despite voiding 2x in past hour prior to PT. Physical Therapy Plan Frequency and Duration Frequency of Treatment 1x/Week Duration of Treatment 8 weeks Plan of Care Start Date 11/06/19 Plan of Care End Date 01/01/20 Next Visit Focus/Plan Next Note Type Treatment Note Next Visit Plan Cont to work on bility to get full hip ext on L without pain . Cont to work on hip flexor & visceral fascia restrictions
--- NOTE | 2019-12-09 16:45 | PT.OTN ---
Current Diagnoses Low back pain (12/09/19) Abnormal posture (12/09/19) Weakness (12/09/19) Physical Therapy Treatment Note PT-OP-A Visit Information Start: 10/28/19 18:34 Freq: Status: Active Protocol: Document 12/09/19 16:45 [facility] (Rec: 12/09/19 18:41 [facility] [id number]) Out-Patient Physical Therapy Visit Information Visit Information Visit Type Treatment Note Visit Start Time 16:45 Visit Stop Time 17:40 Total Visit Minutes 55 Visit Number 10 Number of FITTER AND TURNER Visits 0 Evaluation Information Evaluation Date 10/29/19 PT-OP-B Current Condition Start: 10/28/19 18:34 Freq: Status: Active Protocol: Document 10/29/19 16:04 [facility] (Rec: 10/29/19 18:37 [facility] [id number]) Current Condition History of Current Condition Onset Date Oct 08 worse Current Complaints LBP History of Current Condition Pt reports she has had LBP for a while that was mild for months and has been seeing chiropractor and getting better. She bent over to put a toy leticia bin Oct 08 and had a sharp pain that went into back and around to abdomen like a belt. She went to ER shortly after d/t pain and was given pain meds and saw primary who sent her here. Pt has not seen chiropractor recently d/t concern re: motion and unsure if helping. Last time she saw chiro oct 16. She is taking flexeril which her MD prescribed and she thinks it is helpful especially to help sleeping. Pt reports she changed her sleeping position to hips flexed as high as possible with pillow between and that helped. Standing is not as bad as sitting. Pt has has referal in to see plastic surgeon for breast reduction as she gets bruised by bra and has upper back and neck pain. She did PT for that a couple years ago still does stretches . Pt has hx of R inguinal hernia at 17 months old. Pt is so scared and tenative re: movement d/t fear of having that pain again. Sometimes going down is okay but coming up catches it. Pt has taken off 2 weeks and this is the end of it . 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 She is using a cushion to help her be higher now. She started some Serina ext exercises per a coworker who used to be a PT and that helped some. Pt has pressure in abdomen and feels like she can't hold her core because it creates more pain and has had some incontinence when she does that. When she was on those meds from the ER, she had 4 days of feeling great, but worse again. Pt has a normal vaginal US. Pt reports feels like she is not voiding completely bowel or bladder fully. Pt reports urge incontinence. Pt had 2 tramatic births. SHe was told her had a prolapse but did not have any sumptoms and they did nothing for her. Recent MD borja did not note prolapse. Pt reports 1st child was stuck on her pelvis for 3 hours and came out face first. 2nd kid was also stuck and they had to do vacuum assist to get him out. Kids are 9 and 11. Pt reports fall on tailbone where she was significantly bruised after slipping on wet stairs. This happened last winter. Treatment Goals Patient/Caregiver Goals Figure out how to make herself feel better, be able to move with less pain, improve incontinence, dec pain and pressure PT-OP-C Subjective Start: 10/28/19 18:34 Freq: Status: Active Protocol: Document 12/09/19 16:45 [facility] (Rec: 12/09/19 18:41 [facility] [id number]) OP-PT Subjective Patient Comments Patient Comments She is having increased pain today on left side of her back . She had a planning day at work. Patient Reported Progress Worse OP-PT Pain Assessment Location LB Pain Location Details more on left Intensity 7 Scale Used Numeric (1 - 10) Description Aching,Sharp Frequency Constant PT-OP-F Manual Assessment Start: 10/28/19 18:34 Freq: Status: Active Protocol: Document 10/29/19 16:04 [facility] (Rec: 10/29/19 18:37 [facility] [id number]) Manual Assessments Soft Tissue Assessment Soft Tissue Mobility Assessment tightnes in QL, ES & glutes Joint Mobility Assessment Joint Mobility Assessment R iliac crest higher than L, equal height of greater trochanters PT-OP-G Mobility & Gait Start: 10/28/19 18:34 Freq: Status: Active Protocol: Document 10/29/19 16:04 [facility] (Rec: 10/29/19 18:37 [facility] [id number]) OP Mobility Evaluation Bed Mobility Rolling performs log roll technique for supine<>Sit OP Gait Assessment Comments Gait Comments Pt amb with rigid upper torso and dec pelvis motion at this time. No notable ant elevation /post depression PT-OP-J Posture/Palpation/Skin Start: 10/28/19 18:34 Freq: Status: Active Protocol: Document 10/29/19 16:04 [facility] (Rec: 10/29/19 18:37 [facility] [id number]) Posture Evaluation Jonny Postural Classification System Jonny Postural Classifications Anterior/Posterior Lumbar Protective Mechanism Left AP 0 Lumbar Protective Mechanism Right AP 0 Lumbar Protective Mechanism Left PA 0 Lumbar Protective Mechanism Right PA 0 PT-OP-K Range of Motion Start: 10/28/19 18:34 Freq: Status: Active Protocol: Document 10/29/19 16:04 [facility] (Rec: 10/29/19 18:37 [facility] [id number]) Lumbar Spine Range of Motion Lumbar Spine Active Degrees Flexion 34 Extension 20 Rotation Left 64 Rotation Right 48 Lateral Flexion Left 14 Lateral Flexion Right 13 PT-OP-L Special Tests Start: 10/28/19 18:34 Freq: Status: Active Protocol: Document 10/29/19 16:04 [facility] (Rec: 10/29/19 18:37 [facility] [id number]) Special Tests Lumbar Spine Special Tests Straight Leg Raise Test Results positive B at about 15 deg Slump Test Results unable to test d/t position being uncomfortable PT-OP-M Strength Start: 10/28/19 18:34 Freq: Status: Active Protocol: Document 10/29/19 16:04 [facility] (Rec: 10/29/19 18:37 [facility] [id number]) Hip Strength Hip Manual Muscle Testing Right Reason Not Measured Pain Left Reason Not Measured Pain Knee Strength Knee Manual Muscle Testing Right Reason Not Measured Pain Left Reason Not Measured Pain Ankle/Foot Strength Ankle and Foot Manual Muscle Testing Right Reason Not Measured Pain Left Reason Not Measured Pain PT-OP-Q Treatments Start: 10/28/19 18:34 Freq: Status: Active Protocol: Document 12/09/19 16:45 [facility] (Rec: 12/09/19 18:41 [facility] [id number]) Therapeutic Exercises Supine Exercises Hip ABD/ADD Supine Exercise Name Isometric ADD, hip ABD with exercise band Side bilateral Resistance blue ball Equipment Used L2 ex band Reps/Minutes 10 reps each Comments Hooklying breathing Supine Exercise Name diaphragmatic breathing w/ faciliation manually TS ext and rolling foam roller Supine Exercise Name postural stretch on foam roll Resistance passive TrA activation Supine Exercise Name BKFO, reverse heel slide Side bilateral Reps/Minutes 15 Comments pain on left stretch Supine Exercise Name single knee to chest Reps/Minutes 3 each side Prone Exercises child's pose, side bend Prone Exercise Name child pose stretch Manual Therapy Treatment Soft Tissue Mobilization 2 Body Location left Glut Mobilization Type Strumming,Sustained Pressure Intensity/Depth Moderate Body Position Prone Comments pillow under hips 1 Body Location L QL and left sacrum Mobilization Type Rolling,Strumming,Sustained Pressure Intensity/Depth Moderate Body Position Prone Self-Care/Home Management Treatment Education Patient Education Pain Management PT-OP-R Modalities Start: 10/28/19 18:34 Freq: Status: Active Protocol: Document 12/09/19 16:45 [facility] (Rec: 12/09/19 18:41 [facility] [id number]) Hot Pack/Cold Pack Treatment Hot Pack Location lumbosacral Patient Position Hooklying Treatment Duration (minutes) 15 Patient Tolerance Good PT-OP-T Assessment and Plan Start: 10/28/19 18:34 Freq: Status: Active Protocol: Document 12/09/19 16:45 [facility] (Rec: 12/09/19 18:41 [facility] [id number]) Physical Therapy Assessment Goals sitting Wardrobe Image Consultant Goal (LTG) Pt will be able to sit for as long as needed without inc pain. LTG Duration 12/28/19 ROM Short Term Goal (STG) Pt will have WNL ROM. 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 LTG Duration 12/28/19 strength Short Term Goal (STG) Pt will be indep with HEP. STG Duration 11/29/19 Wardrobe Image Consultant Goal (LTG) Pt will score 5/5 LPM, VCT, and EFT in order to show improved core stability in order to allow her to participate in all work without inc pain. LTG Duration 12/28/19 Oswestry Impairment 24/50 STG Duration 11/29/19 LTG Duration 12/28/19 Progress Towards Goals Progress Towards Goals Slow Progress - Other Progress Comments flare of pain today Assessment Summary Assessment She presents with a flare up of her pain today which appears related to her activies at work. She describes doing a lot of turning and bending over a low table. Significant soft tissus tightness left lumbosacral area this visit which improved with treatment. She continues to be unable to extend left hip to neutral in supine due to pain. Physical Therapy Plan Frequency and Duration Frequency of Treatment 1x/Week Duration of Treatment 8 weeks Plan of Care Start Date 11/06/19 Plan of Care End Date 01/01/20 Therapeutic Interventions Therapeutic Interventions Aquatic Therapy,Balance Training,Gait Training,Home Exercise Program,Joint Mobilizations,Manual Therapy, Neuromuscular Re-education, Patient/Caregiver Education, Self-Care/Home Management,Soft Tissue Mobilization,Taping, Therapeutic Activities, Therapeutic Exercises Modalities Biofeedback,Cold Pack/Ice Massage,Electric Stimulation, Hot Packs,Infrared Therapy, Iontophoresis,Traction- Mechanical,Ultrasound Next Visit Focus/Plan Next Note Type Treatment Note Next Visit Plan continue to work on hip flexor and visceral restrictions
--- NOTE | 2019-12-14 19:21 | PT.OTN ---
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 She bent over to put a toy leticia bin Oct 08 and had a sharp pain that went into back and around to abdomen like a belt. She went to ER shortly after d/t pain and was given pain meds and saw primary who sent her here. Pt has not seen chiropractor recently d/t concern re: motion and unsure if helping. Last time she saw chiro oct 16. She is taking flexeril which her MD prescribed and she thinks it is helpful especially to help sleeping. Pt reports she changed her sleeping position to hips flexed as high as possible with pillow between and that helped. Standing is not as bad as sitting. Pt has has referal in to see plastic surgeon for breast reduction as she gets bruised by bra and has upper back and neck pain. She did PT for that a couple years ago still does stretches . Pt has hx of R inguinal hernia at 17 months old. Pt is so scared and tenative re: movement d/t fear of having that pain again. Sometimes going down is okay but coming up catches it. Pt has taken off 2 weeks and this is the end of it . 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 She is using a cushion to help her be higher now. She started some Serina ext exercises per a coworker who used to be a PT and that helped some. Pt has pressure in abdomen and feels like she can't hold her core because it creates more pain and has had some incontinence when she does that. When she was on those meds from the ER, she had 4 days of feeling great, but worse again. Pt has a normal vaginal US. Pt reports feels like she is not voiding completely bowel or bladder fully. Pt reports urge incontinence. Pt had 2 tramatic births. SHe was told her had a prolapse but did not have any sumptoms and they did nothing for her. Recent MD borja did not note prolapse. Pt reports 1st child was stuck on her pelvis for 3 hours and came out face first. 2nd kid was also stuck and they had to do vacuum assist to get him out. Kids are 9 and 11. Pt reports fall on tailbone where she was significantly bruised after slipping on wet stairs. This happened last winter. Treatment Goals Patient/Caregiver Goals Figure out how to make herself feel better, be able to move with less pain, improve incontinence, dec pain and pressure PT-OP-C Subjective Start: 10/28/19 18:34 Freq: Status: Active Protocol: Document 12/14/19 19:16 [facility] (Rec: 12/14/19 19:21 [facility] [id number]) OP-PT Subjective Patient Comments Patient Comments Pt reports difficulty voiding fully still and LB pain and L hip pain PT-OP-F Manual Assessment Start: 10/28/19 18:34 Freq: Status: Active Protocol: Document 10/29/19 16:04 [facility] (Rec: 10/29/19 18:37 [facility] [id number]) Manual Assessments Soft Tissue Assessment Soft Tissue Mobility Assessment tightnes in QL, ES & glutes Joint Mobility Assessment Joint Mobility Assessment R iliac crest higher than L, equal height of greater trochanters PT-OP-G Mobility & Gait Start: 10/28/19 18:34 Freq: Status: Active Protocol: Document 10/29/19 16:04 [facility] (Rec: 10/29/19 18:37 [facility] [id number]) OP Mobility Evaluation Bed Mobility Rolling performs log roll technique for supine<>Sit OP Gait Assessment Comments Gait Comments Pt amb with rigid upper torso and dec pelvis motion at this time. No notable ant elevation /post depression PT-OP-J Posture/Palpation/Skin Start: 10/28/19 18:34 Freq: Status: Active Protocol: Document 10/29/19 16:04 [facility] (Rec: 10/29/19 18:37 [facility] [id number]) Posture Evaluation [facility] Postural Classification System Jonny Postural Classifications Anterior/Posterior Lumbar Protective Mechanism Left AP 0 Lumbar Protective Mechanism Right AP 0 Lumbar Protective Mechanism Left PA 0 Lumbar Protective Mechanism Right PA 0 PT-OP-K Range of Motion Start: 10/28/19 18:34 Freq: Status: Active Protocol: Document 10/29/19 16:04 [facility] (Rec: 10/29/19 18:37 [facility] [id number]) Lumbar Spine Range of Motion Lumbar Spine Active Degrees Flexion 34 Extension 20 Rotation Left 64 Rotation Right 48 Lateral Flexion Left 14 Lateral Flexion Right 13 PT-OP-L Special Tests Start: 10/28/19 18:34 Freq: Status: Active Protocol: Document 10/29/19 16:04 [facility] (Rec: 10/29/19 18:37 [facility] [id number]) Special Tests Lumbar Spine Special Tests Straight Leg Raise Test Results positive B at about 15 deg Slump Test Results unable to test d/t position being uncomfortable PT-OP-M Strength Start: 10/28/19 18:34 Freq: Status: Active Protocol: Document 10/29/19 16:04 [facility] (Rec: 10/29/19 18:37 [facility] [id number]) Hip Strength Hip Manual Muscle Testing Right Reason Not Measured Pain Left Reason Not Measured Pain Knee Strength Knee Manual Muscle Testing Right Reason Not Measured Pain Left Reason Not Measured Pain Ankle/Foot Strength Ankle and Foot Manual Muscle Testing Right Reason Not Measured Pain Left Reason Not Measured Pain PT-OP-Q Treatments Start: 10/28/19 18:34 Freq: Status: Active Protocol: Document 12/14/19 19:16 [facility] (Rec: 12/14/19 19:21 [facility] [id number]) Manual Therapy Treatment Soft Tissue Mobilization 2 Body Location L adductors, iliacus & med to iliac crest fascia Mobilization Type Rolling,Sustained Pressure Body Position Hooklying Comments W/ hip ER/IR & heel slide Joint Mobilizations hip Joint L Direction inf FM in slight ER position Grade III 1 Joint coccyx Direction distraction, R UPA & R transverse glide FM Self-Care/Home Management Treatment Education Other Education anatomy of sacrum & coccyx PT-OP-R Modalities Start: 10/28/19 18:34 Freq: Status: Active Protocol: Document 12/14/19 19:16 [facility] (Rec: 12/14/19 19:21 [facility] [email or web address]) Hot Pack/Cold Pack Treatment Hot Pack Location lumbosacral Patient Position Hooklying Treatment Duration (minutes) 15 Patient Tolerance Good PT-OP-T Assessment and Plan Start: 10/28/19 18:34 Freq: Status: Active Protocol: Document 12/14/19 19:16 [facility] (Rec: 12/14/19 19:21 [facility] [email or web address]) Physical Therapy Assessment Goals sitting Intermediate Goal (LTG) Pt will be able to sit for as long as needed without inc pain. LTG Duration 12/28/19 ROM Short Term Goal (STG) Pt will have WNL ROM. 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 LTG Duration 12/28/19 strength Short Term Goal (STG) Pt will be indep with HEP. STG Duration 11/29/19 Intermediate Goal (LTG) Pt will score 5/5 LPM, VCT, and EFT in order to show improved core stability in order to allow her to participate in all work without inc pain. LTG Duration 12/28/19 Oswestry Impairment 24/50 STG Duration 11/29/19 LTG Duration 12/28/19 Assessment Summary Assessment Pt improved with ability to ER without pain after mnaul treatment to adductor & iliacus & with hip inf glide. Improved abilityt o extend into full ROM in supine with heel slide after hip flexor & med to iliac crest fascia mobilizaitons along with coccyx mobs. After coccyx mobs , pt had improved ease of goign to child's pose with less tightness. Verbal consent given for coccyx mobs and all position changes for mobs. Physical Therapy Plan Frequency and Duration Frequency of Treatment 1x/Week Duration of Treatment 8 weeks Plan of Care Start Date 11/06/19 Plan of Care End Date 01/01/20 Next Visit Focus/Plan Next Note Type Treatment Note Next Visit Plan Cont to work on ability to get full hip ext on L without pain. Cont to work on hip flexor & visceral fascia restrictions
--- NOTE | 2019-12-16 18:45 | PT.OTN ---
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 She bent over to put a toy leticia bin Oct 08 and had a sharp pain that went into back and around to abdomen like a belt. She went to ER shortly after d/t pain and was given pain meds and saw primary who sent her here. Pt has not seen chiropractor recently d/t concern re: motion and unsure if helping. Last time she saw chiro oct 16. She is taking flexeril which her MD prescribed and she thinks it is helpful especially to help sleeping. Pt reports she changed her sleeping position to hips flexed as high as possible with pillow between and that helped. Standing is not as bad as sitting. Pt has has referal in to see plastic surgeon for breast reduction as she gets bruised by bra and has upper back and neck pain. She did PT for that a couple years ago still does stretches . Pt has hx of R inguinal hernia at 17 months old. Pt is so scared and tenative re: movement d/t fear of having that pain again. Sometimes going down is okay but coming up catches it. Pt has taken off 2 weeks and this is the end of it . 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 She is using a cushion to help her be higher now. She started some Serina ext exercises per a coworker who used to be a PT and that helped some. Pt has pressure in abdomen and feels like she can't hold her core because it creates more pain and has had some incontinence when she does that. When she was on those meds from the ER, she had 4 days of feeling great, but worse again. Pt has a normal vaginal US. Pt reports feels like she is not voiding completely bowel or bladder fully. Pt reports urge incontinence. Pt had 2 tramatic births. SHe was told her had a prolapse but did not have any sumptoms and they did nothing for her. Recent MD borja did not note prolapse. Pt reports 1st child was stuck on her pelvis for 3 hours and came out face first. 2nd kid was also stuck and they had to do vacuum assist to get him out. Kids are 9 and 11. Pt reports fall on tailbone where she was significantly bruised after slipping on wet stairs. This happened last winter. Treatment Goals Patient/Caregiver Goals Figure out how to make herself feel better, be able to move with less pain, improve incontinence, dec pain and pressure PT-OP-C Subjective Start: 10/28/19 18:34 Freq: Status: Active Protocol: Document 12/16/19 18:36 [facility] (Rec: 12/17/19 10:09 [facility] [id number]) OP-PT Subjective Patient Comments Patient Comments Pt reports she felt way looser after last treatment. She feels like she can relax her pelvis down now. Patient Reported Progress Improving PT-OP-F Manual Assessment Start: 10/28/19 18:34 Freq: Status: Active Protocol: Document 10/29/19 16:04 [facility] (Rec: 10/29/19 18:37 [facility] [id number]) Manual Assessments Soft Tissue Assessment Soft Tissue Mobility Assessment tightnes in QL, ES & glutes Joint Mobility Assessment Joint Mobility Assessment R iliac crest higher than L, equal height of greater trochanters PT-OP-G Mobility & Gait Start: 10/28/19 18:34 Freq: Status: Active Protocol: Document 10/29/19 16:04 [facility] (Rec: 10/29/19 18:37 [facility] [id number]) OP Mobility Evaluation Bed Mobility Rolling performs log roll technique for supine<>Sit OP Gait Assessment Comments Gait Comments Pt amb with rigid upper torso and dec pelvis motion at this time. No notable ant elevation /post depression PT-OP-J Posture/Palpation/Skin Start: 10/28/19 18:34 Freq: Status: Active Protocol: Document 10/29/19 16:04 [facility] (Rec: 10/29/19 18:37 [facility] [id number]) Posture Evaluation [facility] Postural Classification System Jonny Postural Classifications Anterior/Posterior Lumbar Protective Mechanism Left AP 0 Lumbar Protective Mechanism Right AP 0 Lumbar Protective Mechanism Left PA 0 Lumbar Protective Mechanism Right PA 0 PT-OP-K Range of Motion Start: 10/28/19 18:34 Freq: Status: Active Protocol: Document 10/29/19 16:04 [facility] (Rec: 10/29/19 18:37 [facility] [id number]) Lumbar Spine Range of Motion Lumbar Spine Active Degrees Flexion 34 Extension 20 Rotation Left 64 Rotation Right 48 Lateral Flexion Left 14 Lateral Flexion Right 13 PT-OP-L Special Tests Start: 10/28/19 18:34 Freq: Status: Active Protocol: Document 10/29/19 16:04 [facility] (Rec: 10/29/19 18:37 [facility] [id number]) Special Tests Lumbar Spine Special Tests Straight Leg Raise Test Results positive B at about 15 deg Slump Test Results unable to test d/t position being uncomfortable PT-OP-M Strength Start: 10/28/19 18:34 Freq: Status: Active Protocol: Document 10/29/19 16:04 [facility] (Rec: 10/29/19 18:37 [facility] [id number]) Hip Strength Hip Manual Muscle Testing Right Reason Not Measured Pain Left Reason Not Measured Pain Knee Strength Knee Manual Muscle Testing Right Reason Not Measured Pain Left Reason Not Measured Pain Ankle/Foot Strength Ankle and Foot Manual Muscle Testing Right Reason Not Measured Pain Left Reason Not Measured Pain PT-OP-Q Treatments Start: 10/28/19 18:34 Freq: Status: Active Protocol: Document 12/16/19 18:36 [facility] (Rec: 12/17/19 10:09 [facility] [id number]) Therapeutic Exercises Supine Exercises diaphragmatric breathing Supine Exercise Name supine & seated with focus on belly expansion Manual Therapy Treatment Soft Tissue Mobilization 3 Body Location general R>L visceral fascia release Mobilization Type Sustained Pressure Intensity/Depth Moderate Body Position Supine Comments LTR 1 Body Location diaphram R Mobilization Type Sustained Pressure Comments w/LTR Joint Mobilizations 1 Joint coccyx Direction distraction, R UPA & R transverse glide FM Neuro Re-Education Treatment Other Activities faciliation Details manual facilitation w/quick stretch Comments for inhalation in s/l PT-OP-R Modalities Start: 10/28/19 18:34 Freq: Status: Active Protocol: Document 12/16/19 18:36 [facility] (Rec: 12/17/19 10:09 [facility] [id number]) Hot Pack/Cold Pack Treatment Hot Pack Location lumbosacral Patient Position Hooklying Treatment Duration (minutes) 10 Patient Tolerance Good PT-OP-T Assessment and Plan Start: 10/28/19 18:34 Freq: Status: Active Protocol: Document 12/16/19 18:36 [facility] (Rec: 12/17/19 10:09 [facility] [id number]) Physical Therapy Assessment Goals sitting Garnett Fixer Goal (LTG) Pt will be able to sit for as long as needed without inc pain. LTG Duration 12/28/19 ROM Short Term Goal (STG) Pt will have WNL ROM. 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 LTG Duration 12/28/19 strength Short Term Goal (STG) Pt will be indep with HEP. STG Duration 11/29/19 Garnett Fixer Goal (LTG) Pt will score 5/5 LPM, VCT, and EFT in order to show improved core stability in order to allow her to participate in all work without inc pain. LTG Duration 12/28/19 Oswestry Impairment 24/50 STG Duration 11/29/19 LTG Duration 12/28/19 Assessment Summary Assessment Pt is improving with coccyx mobility but cont to have a lot of soft tissue densisty on B sides. She has tightness in diaphram region that limits ability for her ribcage to expand. Improved with manual treatmetn with improved ability for R side to expand and improved belly breathing with treatment. Physical Therapy Plan Frequency and Duration Frequency of Treatment 1x/Week Duration of Treatment 8 weeks Plan of Care Start Date 11/06/19 Plan of Care End Date 01/01/20 Next Visit Focus/Plan Next Note Type Treatment Note Next Visit Plan Cont to work on ability to get full hip ext on L without pain. Cont to work on hip flexor & visceral fascia restrictions
--- NOTE | 2019-12-21 18:43 | PT.OTN ---
Current Diagnoses Low back pain (12/21/19) Abnormal posture (12/21/19) Weakness (12/21/19) Physical Therapy Treatment Note PT-OP-A Visit Information Start: 10/28/19 18:34 Freq: Status: Active Protocol: Document 12/21/19 18:25 [facility] (Rec: 12/21/19 18:42 [facility] [id number]) Out-Patient Physical Therapy Visit Information Visit Information Visit Type Treatment Note Visit Start Time 16:50 Visit Stop Time 17:47 Total Visit Minutes 57 Visit Number 13 Number of SENIOR INFRASTRUCTURE ENGINEER Visits 0 PT-OP-B Current Condition Start: 10/28/19 18:34 Freq: Status: Active Protocol: Document 10/29/19 16:04 [facility] (Rec: 10/29/19 18:37 [facility] [id number]) Current Condition History of Current Condition Onset Date Oct 08 worse Current Complaints LBP History of Current Condition Pt reports she has had LBP for a while that was mild for months and has been seeing chiropractor and getting better. She bent over to put a toy leticia bin Oct 08 and had a sharp pain that went into back and around to abdomen like a belt. She went to ER shortly after d/t pain and was given pain meds and saw primary who sent her here. Pt has not seen chiropractor recently d/t concern re: motion and unsure if helping. Last time she saw chiro oct 16. She is taking flexeril which her MD prescribed and she thinks it is helpful especially to help sleeping. Pt reports she changed her sleeping position to hips flexed as high as possible with pillow between and that helped. Standing is not as bad as sitting. Pt has has referal in to see plastic surgeon for breast reduction as she gets bruised by bra and has upper back and neck pain. She did PT for that a couple years ago still does stretches . Pt has hx of R inguinal hernia at 17 months old. Pt is so scared and tenative re: movement d/t fear of having that pain again. Sometimes going down is okay but coming up catches it. Pt has taken off 2 weeks and this is the end of it . 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 She is using a cushion to help her be higher now. She started some Serina ext exercises per a coworker who used to be a PT and that helped some. Pt has pressure in abdomen and feels like she can't hold her core because it creates more pain and has had some incontinence when she does that. When she was on those meds from the ER, she had 4 days of feeling great, but worse again. Pt has a normal vaginal US. Pt reports feels like she is not voiding completely bowel or bladder fully. Pt reports urge incontinence. Pt had 2 tramatic births. SHe was told her had a prolapse but did not have any sumptoms and they did nothing for her. Recent MD borja did not note prolapse. Pt reports 1st child was stuck on her pelvis for 3 hours and came out face first. 2nd kid was also stuck and they had to do vacuum assist to get him out. Kids are 9 and 11. Pt reports fall on tailbone where she was significantly bruised after slipping on wet stairs. This happened last winter. Treatment Goals Patient/Caregiver Goals Figure out how to make herself feel better, be able to move with less pain, improve incontinence, dec pain and pressure PT-OP-C Subjective Start: 10/28/19 18:34 Freq: Status: Active Protocol: Document 12/21/19 18:25 [facility] (Rec: 12/21/19 18:43 [facility] [id number]) OP-PT Subjective Patient Comments Patient Comments Pt reprots better after last week's treatments. She is concerned about cont to attend appts and is going to talk to her MD Patient Reported Progress Improving PT-OP-F Manual Assessment Start: 10/28/19 18:34 Freq: Status: Active Protocol: Document 10/29/19 16:04 [facility] (Rec: 10/29/19 18:37 [facility] [id number]) Manual Assessments Soft Tissue Assessment Soft Tissue Mobility Assessment tightnes in QL, ES & glutes Joint Mobility Assessment Joint Mobility Assessment R iliac crest higher than L, equal height of greater trochanters PT-OP-G Mobility & Gait Start: 10/28/19 18:34 Freq: Status: Active Protocol: Document 10/29/19 16:04 [facility] (Rec: 10/29/19 18:37 [facility] [id number]) OP Mobility Evaluation Bed Mobility Rolling performs log roll technique for supine<>Sit OP Gait Assessment Comments Gait Comments Pt amb with rigid upper torso and dec pelvis motion at this time. No notable ant elevation /post depression PT-OP-J Posture/Palpation/Skin Start: 10/28/19 18:34 Freq: Status: Active Protocol: Document 10/29/19 16:04 [facility] (Rec: 10/29/19 18:37 [facility] [id number]) Posture Evaluation [facility] Postural Classification System Jonny Postural Classifications Anterior/Posterior Lumbar Protective Mechanism Left AP 0 Lumbar Protective Mechanism Right AP 0 Lumbar Protective Mechanism Left PA 0 Lumbar Protective Mechanism Right PA 0 PT-OP-K Range of Motion Start: 10/28/19 18:34 Freq: Status: Active Protocol: Document 10/29/19 16:04 [facility] (Rec: 10/29/19 18:37 [facility] [id number]) Lumbar Spine Range of Motion Lumbar Spine Active Degrees Flexion 34 Extension 20 Rotation Left 64 Rotation Right 48 Lateral Flexion Left 14 Lateral Flexion Right 13 PT-OP-L Special Tests Start: 10/28/19 18:34 Freq: Status: Active Protocol: Document 10/29/19 16:04 [facility] (Rec: 10/29/19 18:37 [facility] [id number]) Special Tests Lumbar Spine Special Tests Straight Leg Raise Test Results positive B at about 15 deg Slump Test Results unable to test d/t position being uncomfortable PT-OP-M Strength Start: 10/28/19 18:34 Freq: Status: Active Protocol: Document 10/29/19 16:04 [facility] (Rec: 10/29/19 18:37 [facility] [id number]) Hip Strength Hip Manual Muscle Testing Right Reason Not Measured Pain Left Reason Not Measured Pain Knee Strength Knee Manual Muscle Testing Right Reason Not Measured Pain Left Reason Not Measured Pain Ankle/Foot Strength Ankle and Foot Manual Muscle Testing Right Reason Not Measured Pain Left Reason Not Measured Pain PT-OP-Q Treatments Start: 10/28/19 18:34 Freq: Status: Active Protocol: Document 12/21/19 18:25 [facility] (Rec: 12/21/19 18:42 [facility] [id number]) Therapeutic Exercises Supine Exercises TrA activation Supine Exercise Name w/ER and trying 3 different positions of hip Side bilateral lTR Supine Exercise Name focus on segmental control in comfortable range Side bilateral Reps/Minutes 10 Comments cued awareness of neutral spine stretch Supine Exercise Name HS, glute, figure 4 Side bilateral Reps/Minutes 30 sec Other Exercises stretch Other Exercise Name 1/2 kneel hip flex Comments stopped d/t pain arm flex Other Exercise Name quad Side bilateral Reps/Minutes 2 Comments stopped d/t pain dayo pose Side bilateral Reps/Minutes 30 sec Manual Therapy Treatment Soft Tissue Mobilization 3 Body Location general L>R visceral fascia release Mobilization Type Sustained Pressure Intensity/Depth Moderate Body Position Supine Comments LTR Self-Care/Home Management Treatment Education Patient Education Home Exercise Program Other Education edu on general progression w/ resistance band and with progression from december to ; discussion on gradually inc stretch amt as tolerated. PT-OP-R Modalities Start: 10/28/19 18:34 Freq: Status: Active Protocol: Document 12/21/19 18:25 [facility] (Rec: 12/21/19 18:42 [facility] [id number]) Hot Pack/Cold Pack Treatment Hot Pack Location lumbosacral Patient Position Hooklying Treatment Duration (minutes) 15 Patient Tolerance Good PT-OP-T Assessment and Plan Start: 10/28/19 18:34 Freq: Status: Active Protocol: Document 12/21/19 18:25 [facility] (Rec: 12/21/19 18:42 [facility] [id number]) Physical Therapy Assessment Goals sitting Mcfp Goal (LTG) Pt will be able to sit for as long as needed without inc pain. LTG Duration 12/28/19 ROM Short Term Goal (STG) Pt will have WNL ROM. 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 LTG Duration 12/28/19 strength Short Term Goal (STG) Pt will be indep with HEP. STG Duration 11/29/19 Mcfp Goal (LTG) Pt will score 5/5 LPM, VCT, and EFT in order to show improved core stability in order to allow her to participate in all work without inc pain. LTG Duration 12/28/19 Oswestry Impairment 24/50 STG Duration 11/29/19 LTG Duration 12/28/19 Assessment Summary Assessment Pt was edcuated on home exercises in case she does not feel comfortable attending upcoming appointments. She is indepw ith progression of exercises and was instructed to call with questions. She cont to have tightness that likely contributes to her pain and movement restrictions. Physical Therapy Plan Frequency and Duration Frequency of Treatment 1x/Week Duration of Treatment 8 weeks Plan of Care Start Date 11/06/19 Plan of Care End Date 01/01/20 Next Visit Focus/Plan Next Note Type Treatment Note Next Visit Plan Cont to work on mobility of of lumbar spine and hips for ability
--- NOTE | 2019-12-23 18:51 | PT.OTN ---
Current Diagnoses Low back pain (12/23/19) Abnormal posture (12/23/19) Weakness (12/23/19) Physical Therapy Treatment Note PT-OP-A Visit Information Start: 10/28/19 18:34 Freq: Status: Active Protocol: Document 12/23/19 16:23 [facility] (Rec: 12/23/19 18:46 [facility] [id number]) Out-Patient Physical Therapy Visit Information Visit Information Visit Type Treatment Note Visit Start Time 16:30 Visit Stop Time 17:35 Total Visit Minutes 65 Visit Number 14 PT-OP-B Current Condition Start: 10/28/19 18:34 Freq: Status: Active Protocol: Document 10/29/19 16:04 [facility] (Rec: 10/29/19 18:37 [facility] [id number]) Current Condition History of Current Condition Onset Date Oct 08 worse Current Complaints LBP History of Current Condition Pt reports she has had LBP for a while that was mild for months and has been seeing chiropractor and getting better. She bent over to put a toy leticia bin Oct 08 and had a sharp pain that went into back and around to abdomen like a belt. She went to ER shortly after d/t pain and was given pain meds and saw primary who sent her here. Pt has not seen chiropractor recently d/t concern re: motion and unsure if helping. Last time she saw chiro oct 16. She is taking flexeril which her MD prescribed and she thinks it is helpful especially to help sleeping. Pt reports she changed her sleeping position to hips flexed as high as possible with pillow between and that helped. Standing is not as bad as sitting. Pt has has referal in to see plastic surgeon for breast reduction as she gets bruised by bra and has upper back and neck pain. She did PT for that a couple years ago still does stretches . Pt has hx of R inguinal hernia at 17 months old. Pt is so scared and tenative re: movement d/t fear of having that pain again. Sometimes going down is okay but coming up catches it. Pt has taken off 2 weeks and this is the end of it . 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 She is using a cushion to help her be higher now. She started some Serina ext exercises per a coworker who used to be a PT and that helped some. Pt has pressure in abdomen and feels like she can't hold her core because it creates more pain and has had some incontinence when she does that. When she was on those meds from the ER, she had 4 days of feeling great, but worse again. Pt has a normal vaginal US. Pt reports feels like she is not voiding completely bowel or bladder fully. Pt reports urge incontinence. Pt had 2 tramatic births. SHe was told her had a prolapse but did not have any sumptoms and they did nothing for her. Recent MD borja did not note prolapse. Pt reports 1st child was stuck on her pelvis for 3 hours and came out face first. 2nd kid was also stuck and they had to do vacuum assist to get him out. Kids are 9 and 11. Pt reports fall on tailbone where she was significantly bruised after slipping on wet stairs. This happened last winter. Treatment Goals Patient/Caregiver Goals Figure out how to make herself feel better, be able to move with less pain, improve incontinence, dec pain and pressure PT-OP-C Subjective Start: 10/28/19 18:34 Freq: Status: Active Protocol: Document 12/23/19 16:23 [facility] (Rec: 12/23/19 18:46 [facility] [id number]) OP-PT Subjective Patient Comments Patient Comments Pt reports feeling tight in her back. She is unsure why Patient Questionnaires Oswestry Low Back Index Oswestry Score 21/50 PT-OP-F Manual Assessment Start: 10/28/19 18:34 Freq: Status: Active Protocol: Document 10/29/19 16:04 [facility] (Rec: 10/29/19 18:37 [facility] [id number]) Manual Assessments Soft Tissue Assessment Soft Tissue Mobility Assessment tightnes in QL, ES & glutes Joint Mobility Assessment Joint Mobility Assessment R iliac crest higher than L, equal height of greater trochanters PT-OP-G Mobility & Gait Start: 10/28/19 18:34 Freq: Status: Active Protocol: Document 10/29/19 16:04 [facility] (Rec: 10/29/19 18:37 [facility] [id number]) OP Mobility Evaluation Bed Mobility Rolling performs log roll technique for supine<>Sit OP Gait Assessment Comments Gait Comments Pt amb with rigid upper torso and dec pelvis motion at this time. No notable ant elevation /post depression PT-OP-J Posture/Palpation/Skin Start: 10/28/19 18:34 Freq: Status: Active Protocol: Document 12/23/19 16:23 [facility] (Rec: 12/23/19 18:46 [facility] [id number]) Posture Evaluation [facility] Postural Classification System Jonny Postural Classifications Anterior/Posterior Lumbar Protective Mechanism Left AP 1 Lumbar Protective Mechanism Right AP 0 Lumbar Protective Mechanism Left PA 3 Lumbar Protective Mechanism Right PA 3 PT-OP-K Range of Motion Start: 10/28/19 18:34 Freq: Status: Active Protocol: Document 12/23/19 16:23 [facility] (Rec: 12/23/19 18:46 [facility] [id number]) Lumbar Spine Range of Motion Lumbar Spine Active Degrees Flexion 40 Extension 20 Rotation Left 28 Rotation Right 40 Lateral Flexion Left 16 Lateral Flexion Right 23 PT-OP-L Special Tests Start: 10/28/19 18:34 Freq: Status: Active Protocol: Document 10/29/19 16:04 [facility] (Rec: 10/29/19 18:37 [facility] [id number]) Special Tests Lumbar Spine Special Tests Straight Leg Raise Test Results positive B at about 15 deg Slump Test Results unable to test d/t position being uncomfortable PT-OP-M Strength Start: 10/28/19 18:34 Freq: Status: Active Protocol: Document 10/29/19 16:04 [facility] (Rec: 10/29/19 18:37 [facility] [id number]) Hip Strength Hip Manual Muscle Testing Right Reason Not Measured Pain Left Reason Not Measured Pain Knee Strength Knee Manual Muscle Testing Right Reason Not Measured Pain Left Reason Not Measured Pain Ankle/Foot Strength Ankle and Foot Manual Muscle Testing Right Reason Not Measured Pain Left Reason Not Measured Pain PT-OP-Q Treatments Start: 10/28/19 18:34 Freq: Status: Active Protocol: Document 12/23/19 16:23 [facility] (Rec: 12/23/19 18:46 [facility] [id number]) Therapeutic Exercises Prone Exercises child's pose, side bend Prone Exercise Name dayo pose Reps/Minutes 1 min Manual Therapy Treatment Soft Tissue Mobilization L ES, paraspinals Mobilization Type Cross-Friction,Myofascial Release Intensity/Depth Moderate Comments dayo pose 2 Body Location L>R glutes Mobilization Type Rolling,Sustained Pressure Intensity/Depth Moderate Body Position Prone Joint Mobilizations hip Joint R Direction ER FM sacrum Direction caudal Grade III 1 Joint coccyx Direction R transverse Taping SI compression Body Location X SI Treatment Focus SI stabilization Type of Tape Kinesio Tape Skin Inspection normal color/texture Comments Cued if no adverse affects ( itchy, redness, irritation) can keep on and wearable in shower for 3-4 days otherwise remove. PT-OP-R Modalities Start: 10/28/19 18:34 Freq: Status: Active Protocol: Document 12/23/19 16:23 [facility] (Rec: 12/23/19 18:46 [facility] [id number]) Hot Pack/Cold Pack Treatment Hot Pack Location lumbosacral Patient Position Hooklying Treatment Duration (minutes) 15 Patient Tolerance Good PT-OP-T Assessment and Plan Start: 10/28/19 18:34 Freq: Status: Active Protocol: Document 12/23/19 16:23 [facility] (Rec: 12/23/19 18:46 [facility] [id number]) Physical Therapy Assessment Goals sitting Director Of Conservation Goal (LTG) Pt will be able to sit for as long as needed without inc pain. 12/22-still feels tight with sitting LTG Duration 02/22/20 ROM Short Term Goal (STG) Pt will have WNL ROM. 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 LTG Duration 03/24/20 strength Short Term Goal (STG) Pt will be indep with HEP. STG Duration achieved Director Of Conservation Goal (LTG) Pt will score 5/5 LPM, VCT, and EFT in order to show improved core stability in order to allow her to participate in all work without inc pain. 12/22-improved LPM LTG Duration 03/24/20 Oswestry Impairment 24/50 Short Term Goal (STG) Score 17/50 on oswestry in order to show improved function 12/22- STG Duration 01/23/20 Half-Way Goal (LTG) Score 5/50 on oswestry in order to show improved function LTG Duration 03/24/20 Assessment Summary Assessment Pt is improving slowly with her mobility and is still having signfiicant tightness in LB. She is improving with tightness with coccyx mobs and with abdomenal mobiliziaton. She has signfiicant ant tightness that likely contributes to her pain. She will be on hold from PT d/t coronavirus concerns at this time. Physical Therapy Plan Frequency and Duration Frequency of Treatment 1-2x/Week Duration of Treatment 3 months Plan of Care Start Date 12/23/19 Plan of Care End Date 03/24/20 Therapeutic Interventions Therapeutic Interventions Aquatic Therapy,Balance Training,Gait Training,Home Exercise Program,Joint Mobilizations,Manual Therapy, Neuromuscular Re-education, Patient/Caregiver Education, Self-Care/Home Management,Soft Tissue Mobilization,Taping, Therapeutic Activities, Therapeutic Exercises Modalities Biofeedback,Cold Pack/Ice Massage,Electric Stimulation, Hot Packs,Infrared Therapy, Iontophoresis,Traction- Mechanical,Ultrasound Next Visit Focus/Plan Next Note Type Treatment Note Next Visit Plan Cont to work on mobility of of lumbar spine and hips for ability to flex & rotate; cont to look ant
--- NOTE | 2019-12-23 18:51 | PT.OPPOC ---
Physical, Occupational & Speech Therapy At [facility] Current Diagnoses Low back pain (12/23/19) Abnormal posture (12/23/19) Weakness (12/23/19) Visit Care Team Role Provider Type Kym Celis DO Attending Provider Physician Primary Care Provider Specialty: [facility] Practice Address: [address] [place] [address], [place], [address] Email: [email or web address] Plan Of Care PT-OP-T Assessment and Plan Start: 10/28/19 18:34 Freq: Status: Active Protocol: Document 12/23/19 16:23 [facility] (Rec: 12/23/19 18:46 [facility] [id number]) Physical Therapy Assessment Goals sitting Occupational Therapy Director Goal (LTG) Pt will be able to sit for as long as needed without inc pain. 12/22-still feels tight with sitting LTG Duration 02/22/20 ROM Short Term Goal (STG) Pt will have WNL ROM. 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 LTG Duration 03/24/20 strength Short Term Goal (STG) Pt will be indep with HEP. STG Duration achieved Occupational Therapy Director Goal (LTG) Pt will score 5/5 LPM, VCT, and EFT in order to show improved core stability in order to allow her to participate in all work without inc pain. 12/22-improved LPM LTG Duration 03/24/20 Oswestry Impairment 24/50 Short Term Goal (STG) Score 17/50 on oswestry in order to show improved function 12/22-21/50 STG Duration 01/23/20 Occupational Therapy Director Goal (LTG) Score 5/50 on oswestry in order to show improved function LTG Duration 03/24/20 Assessment Summary Assessment Pt is improving slowly with her mobility and is still having signfiicant tightness in LB. She is improving with tightness with coccyx mobs and with abdomenal mobiliziaton. She has signfiicant ant tightness that likely contributes to her pain. She will be on hold from PT d/t coronavirus concerns at this time. Physical Therapy Plan Frequency and Duration Frequency of Treatment 1-2x/Week Duration of Treatment 3 months Plan of Care Start Date 12/23/19 Plan of Care End Date 03/24/20 Therapeutic Interventions Therapeutic Interventions Aquatic Therapy,Balance Training,Gait Training,Home Exercise Program,Joint Mobilizations,Manual Therapy, Neuromuscular Re-education, Patient/Caregiver Education, Self-Care/Home Management,Soft Tissue Mobilization,Taping, Therapeutic Activities, Therapeutic Exercises Modalities Biofeedback,Cold Pack/Ice Massage,Electric Stimulation, Hot Packs,Infrared Therapy, Iontophoresis,Traction- Mechanical,Ultrasound Next Visit Focus/Plan Next Note Type Treatment Note Next Visit Plan Cont to work on mobility of of lumbar spine and hips for ability to flex & rotate; cont to look ant Plan of Care Dates Plan of Care Start Date 12/23/19 Plan of Care End Date 03/24/20 Electronically Signed by: Magy Perry, PT 12/23/19 0893 Please Sign and Return: I have reviewed this Plan of Care and certify that the skilled therapy services above are required to meet the patient?s needs. Physician Signature Date Printed Name and Credentials Clinical Instructor Signature Printed Name and Credentials
--- NOTE | 2019-12-29 10:28 | PT-OP ANOTE ---
Pt called re: no show and noted she had called and left a message to cancel d/t COVID concerns.
--- NOTE | 2020-06-09 08:39 | PT.OPDS ---
Current Diagnoses Low back pain (12/23/19) Abnormal posture (12/23/19) Weakness (12/23/19) Visit Care Team Role Provider Type Kym Celis DO Attending Provider Physician Primary Care Provider Specialty: Family Practice Address: [address] [place] [address], [facility] [place], [address] Email: [email or web address] Visit Number Visit Number 14 Discharge Summary PT-OP-B Current Condition Start: 10/28/19 18:34 Freq: Status: Active Protocol: Document 10/29/19 16:04 [facility] (Rec: 10/29/19 18:37 [facility] [id number]) Current Condition History of Current Condition Onset Date Oct 08 worse Current Complaints LBP History of Current Condition Pt reports she has had LBP for a while that was mild for months and has been seeing chiropractor and getting better. She bent over to put a toy leticia bin Oct 08 and had a sharp pain that went into back and around to abdomen like a belt. She went to ER shortly after d/t pain and was given pain meds and saw primary who sent her here. Pt has not seen chiropractor recently d/t concern re: motion and unsure if helping. Last time she saw chiro oct 16. She is taking flexeril which her MD prescribed and she thinks it is helpful especially to help sleeping. Pt reports she changed her sleeping position to hips flexed as high as possible with pillow between and that helped. Standing is not as bad as sitting. Pt has has referal in to see plastic surgeon for breast reduction as she gets bruised by bra and has upper back and neck pain. She did PT for that a couple years ago still does stretches . Pt has hx of R inguinal hernia at 17 months old. Pt is so scared and tenative re: movement d/t fear of having that pain again. Sometimes going down is okay but coming up catches it. Pt has taken off 2 weeks and this is the end of it . 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 She is using a cushion to help her be higher now. She started some Serina ext exercises per a coworker who used to be a PT and that helped some. Pt has pressure in abdomen and feels like she can't hold her core because it creates more pain and has had some incontinence when she does that. When she was on those meds from the ER, she had 4 days of feeling great, but worse again. Pt has a normal vaginal US. Pt reports feels like she is not voiding completely bowel or bladder fully. Pt reports urge incontinence. Pt had 2 tramatic births. SHe was told her had a prolapse but did not have any sumptoms and they did nothing for her. Recent MD borja did not note prolapse. Pt reports 1st child was stuck on her pelvis for 3 hours and came out face first. 2nd kid was also stuck and they had to do vacuum assist to get him out. Kids are 9 and 11. Pt reports fall on tailbone where she was significantly bruised after slipping on wet stairs. This happened last winter. Treatment Goals Patient/Caregiver Goals Figure out how to make herself feel better, be able to move with less pain, improve incontinence, dec pain and pressure PT-OP-C Subjective Start: 10/28/19 18:34 Freq: Status: Active Protocol: Document 12/23/19 16:23 [facility] (Rec: 12/23/19 18:46 [facility] [id number]) OP-PT Subjective Patient Comments Patient Comments Pt reports feeling tight in her back. She is unsure why Patient Questionnaires Oswestry Low Back Index Oswestry Score 21/50 PT-OP-F Manual Assessment Start: 10/28/19 18:34 Freq: Status: Active Protocol: Document 10/29/19 16:04 [facility] (Rec: 10/29/19 18:37 [facility] [id number]) Manual Assessments Soft Tissue Assessment Soft Tissue Mobility Assessment tightnes in QL, ES & glutes Joint Mobility Assessment Joint Mobility Assessment R iliac crest higher than L, equal height of greater trochanters PT-OP-G Mobility & Gait Start: 10/28/19 18:34 Freq: Status: Active Protocol: Document 10/29/19 16:04 [facility] (Rec: 10/29/19 18:37 [facility] [id number]) OP Mobility Evaluation Bed Mobility Rolling performs log roll technique for supine<>Sit OP Gait Assessment Comments Gait Comments Pt amb with rigid upper torso and dec pelvis motion at this time. No notable ant elevation /post depression PT-OP-J Posture/Palpation/Skin Start: 10/28/19 18:34 Freq: Status: Active Protocol: Document 12/23/19 16:23 [facility] (Rec: 12/23/19 18:46 [facility] [id number]) Posture Evaluation Jonny Postural Classification System Jonny Postural Classifications Anterior/Posterior Lumbar Protective Mechanism Left AP 1 Lumbar Protective Mechanism Right AP 0 Lumbar Protective Mechanism Left PA 3 Lumbar Protective Mechanism Right PA 3 PT-OP-K Range of Motion Start: 10/28/19 18:34 Freq: Status: Active Protocol: Document 12/23/19 16:23 [facility] (Rec: 12/23/19 18:46 [facility] [id number]) Lumbar Spine Range of Motion Lumbar Spine Active Degrees Flexion 40 Extension 20 Rotation Left 28 Rotation Right 40 Lateral Flexion Left 16 Lateral Flexion Right 23 PT-OP-L Special Tests Start: 10/28/19 18:34 Freq: Status: Active Protocol: Document 10/29/19 16:04 [facility] (Rec: 10/29/19 18:37 [facility] [id number]) Special Tests Lumbar Spine Special Tests Straight Leg Raise Test Results positive B at about 15 deg Slump Test Results unable to test d/t position being uncomfortable PT-OP-M Strength Start: 10/28/19 18:34 Freq: Status: Active Protocol: Document 10/29/19 16:04 [facility] (Rec: 10/29/19 18:37 [facility] [id number]) Hip Strength Hip Manual Muscle Testing Right Reason Not Measured Pain Left Reason Not Measured Pain Knee Strength Knee Manual Muscle Testing Right Reason Not Measured Pain Left Reason Not Measured Pain Ankle/Foot Strength Ankle and Foot Manual Muscle Testing Right Reason Not Measured Pain Left Reason Not Measured Pain PT-OP-T Assessment and Plan Start: 10/28/19 18:34 Freq: Status: Active Protocol: Document 06/09/20 08:38 [facility] (Rec: 06/09/20 08:39 [facility] [id number]) Physical Therapy Assessment Assessment Summary Assessment ? Patient has been seeing other therapist for incontinence & LBP since clinic re-opening. This is old account. DC this case Physical Therapy Plan Discharge Physical Therapy Discharge Comments Pt is being seen under another account
== END 2020-06-10 08:20 ==
LOC: PHYS 16:45
PROVIDERS: PCP Family Medicine; Visit Provider Family Medicine
DX: M54.5 Low back pain (principal); R53.1 Weakness; R29.3 Abnormal posture
CPT/HCPCS: 97010; 97110; 97140; 97162; 97535

== ENCOUNTER → 2020-03-23 16:03 | Outpatient (CLI) | payer OTHER, SELFPAY ==
--- NOTE | 2020-03-23 16:18 | DI.ECHO.S_ITS ---
Echocardiogram Report + + :Name: CAMRYN NAGEL Study Date: 03/23/2020 Height: 64 in : :[facility] Weight: 150 lb : : Gender: Female BSA: 1.7 m2 : :: 1980 Age: 39 yrs BP: 132/68 mmHg: :Reason For Study: TACHYCARDIA : :Ordering Physician: BOOKER, : :CABRERA Performed By: Palmira Anna : :Referring: CABRERA CELESTE : + + Interpretation Summary The left ventricle is normal in size and wall thickness. The ejection fraction is estimated to be 50-55%. Left ventricular global longitudinal strain average is -18.2%. The right ventricle is normal in size and function. No significant valvular pathology seen. The IVC is of normal diameter and collapses greater than 50% with a sniff. This suggests a low right atrial pressure of 3 mm Hg. Procedure: A two-dimensional transthoracic echocardiogram with color flow and Doppler was performed. The study quality was technically adequate. There is no prior echocardiogram noted for this patient. The patient was in sinus tachycardia with heart rates between 90-115 bpm during the exam. The patient had occasional PACs during the exam. Left Ventricle: The left ventricle is normal in size and wall thickness. There is no thrombus. The ejection fraction is estimated to be 50-55%. Left ventricular global longitudinal strain average is -18.2%. There are no focal wall motion abnormalities. Diastolic parameters suggest probable normal left ventricular diastolic function and normal filling pressures. Right Ventricle: The right ventricle is normal in size and function. Atria: Both atria are normal in size. There is no Doppler evidence for an interatrial shunt. Mitral Valve: The mitral valve is normal in structure and function. There is trace mitral regurgitation. Aortic Valve: The aortic valve is trileaflet. The aortic valve opens well. There is no aortic valve stenosis. No aortic regurgitation is present. Tricuspid Valve: The tricuspid valve is normal in structure and function. There is trace tricuspid regurgitation. Pulmonary artery pressures cannot be estimated because of the lack of a measurable TR jet velocity. Pulmonic Valve: The pulmonic valve is normal in structure and function. There is no pulmonic valvular regurgitation. Great Vessels: The aortic root is normal size. The dimensions of the ascending aorta are normal. The IVC is of normal diameter and collapses greater than 50% with a sniff. This suggests a low right atrial pressure of 3 mm Hg. Pericardium/ Pleura There is no pericardial effusion. There is no pleural effusion. MMode/2D Measurements & Calculations LVIDd: 4.7 cm LVOT diam: 2.0 cm LVIDs: 3.3 cm Ao root diam: 3.2 cm FS: 29.4 % asc Aorta Diam: 3.1 cm EPSS: 0.50 cm Ao Arch Diam (Prox Trans): 2.7 cm IVSd: 0.65 cm LVPWd: 0.70 cm LV shukla. diameter/BSA (cm/m^2): 2.7 LV sys. diameter/BSA (cm/m^2): 1.9 LA A2 area: 18.6 cm2 RA long axis: 4.1 cm LA A4 area: 13.9 cm2 RA area: 11.0 cm2 LA length (vol): 4.5 cm RA vol: 25.1 ml LA vol: 48.6 ml RA : 14.5 ml/m2 LA vol index: 28.1 ml/m2 RVD1 (basal): 3.2 cm TAPSE: 1.9 cm Doppler Measurements & Calculations Ao V2 max: 112.1 cm/sec LVOT Max Pipe: 72.3 cm/sec Ao V2 mean: 72.7 cm/sec LV V1 max P.1 mmHg Ao max P.0 mmHg LV V1 VTI: 14.7 cm Ao mean P.4 mmHg KANE(I,D): 2.3 cm2 Ao V2 VTI: 19.5 cm KANE(V,D): 2.0 cm2 sev ratio: 0.75 KANE indexed to BSA (cm^2/m^2): 1.3 MV E max pipe: 86.5 cm/sec PA V2 max: 79.8 cm/sec MV A max pipe: 69.0 cm/sec PA V2 mean: 52.2 cm/sec MV E/A: 1.3 PA mean P.3 mmHg Med Peak E' Pipe: 12.3 cm/sec PA pr(Accel): 13.5 mmHg E/E' med: 7.0 Lat Peak E' Pipe: 13.5 cm/sec E/E' lat: 6.4 E/e' average: 6.7 MV dec time: 0.17 sec SV(LVOT): 44.5 ml Reading Physician:05:52 PM
== END ==
PROVIDERS: PCP Family Medicine; Referring Provider Family Medicine; Visit Provider Family Medicine
DX: R00.0 Tachycardia, unspecified (principal)
CPT/HCPCS: 93306

== ENCOUNTER → 2020-05-11 16:44 | Outpatient (CLI) | payer OTHER, SELFPAY ==
--- NOTE | 2020-05-11 16:47 | DI.MRI.S_ITS ---
PROCEDURE: MR LUMBAR SPINE WO CON INDICATIONS: lbp, radiating pain around hips TECHNIQUE: Noncontrast sagittal T1 spin echo and T2 fast echo, sagittal STIR, axial T1 and T2 fast spin echo through the lumbar spine. In cases with scoliosis, additional coronal T2 fast spin echo may be performed. COMPARISON: [facility], CR, XR LUMBAR SPINE 2-3V, 10/16/2019, 18:09. FINDINGS: Image quality: This examination is limited by involuntary motion artifact. Alignment and Curvature: There is normal bony alignment. Bone Marrow: Marrow is of normal overall signal. No acute vertebral body compression fractures. Spinal Cord: Conus medullaris terminates at the L1 level. Visualized cord demonstrates normal signal and size. Paraspinous Soft Tissues: No paravertebral masses. T12-L1: Normal appearance. L1-L2: Normal appearance. L2-L3: The disc height and disk signal are well-preserved. Mild generalized disc bulge is seen. No significant neural foraminal narrowing is seen. Mild central canal narrowing is seen. L3-L4: The disc height and disk signal are well-preserved. Mild generalized disc bulge is seen. Mild facet joint hypertrophy is seen. No significant neural foraminal or central canal narrowing can be seen. L4-L5: The disc height and disc signal are relatively well preserved. Moderate disc bulge is seen, which is eccentric to the right. There is a protruding component seen into the right foraminal region, as on series 4, image 24. There is also a mild central disc extrusion, with mild superior migration of the disc material, as on series 2, image 10. Moderate facet joint hypertrophy is seen. Fluid is seen within the facet joints themselves. Moderate bilateral neural foraminal narrowing is seen. Moderate central canal narrowing is seen. There is a focal annular fissure seen posteriorly. L5-S1: Mild loss of disc height is seen. Loss of disc signal is seen. Moderate disc bulge is seen, with a mild central disc extrusion, with mild inferior migration of the disc material. Mild to moderate facet hypertrophy is seen. Moderate bilateral neural foraminal narrowing is seen. Mild central canal narrowing is seen. IMPRESSION: Focal premature degenerative changes are seen at L4-5 and L5-S1. Dictated by: Mo Huff M.D. on 05/11/2020 at 17:20 Approved by: Mo Huff M.D. on 05/11/2020 at 17:23
== END ==
PROVIDERS: PCP Family Medicine; Referring Provider Family Medicine; Visit Provider Family Medicine
DX: M54.5 Low back pain (principal); M51.16 Intervertebral disc disorders with radiculopathy, lumbar region; M25.551 Pain in right hip; M25.552 Pain in left hip; M47.26 Other spondylosis with radiculopathy, lumbar region; M47.27 Other spondylosis with radiculopathy, lumbosacral region
CPT/HCPCS: 72148

== ENCOUNTER 2020-05-12 11:15 | Outpatient (RCR) | payer OTHER, SELFPAY ==
--- NOTE | 2019-11-06 17:15 | PT.OIE ---
Current Diagnoses Pelvic and perineal pain (11/06/19) Unspecified urinary incontinence (11/06/19) Past Medical History (Last Reviewed 10/22/19 @ 07:58 by Kym Celis DO) Ankle pain (Resolved ~1987) Asthma (Acute) Chicken pox (Chronic ~1983) Chronic back pain (Chronic ~1997) CTS (carpal tunnel syndrome) (Chronic 1997) Depression (Chronic ~1996) Eczema (Chronic ~2013) 3 (Resolved) Hayfever (Chronic ~1986) Migraines (Chronic ~2000) Recurrent sinusitis (Chronic ~2000) Past Surgical History (Last Reviewed 10/22/19 @ 07:58 by Kym Celis DO) Anesthesia (Resolved) History of hernia repair (Resolved 1979) History of third molar tooth extraction (Resolved 1995) Visit Care Team Role Provider Type Kym Celis DO Attending Provider Physician Primary Care Provider Specialty: [facility] Practice Address: [address] [place] [address] Email: [email or web address] Physical Therapy Initial Evaluation PT-OP-A Visit Information Start: 11/06/19 07:15 Freq: Status: Active Protocol: Document 11/06/19 07:30 EG (Rec: 11/06/19 15:18 EG [id number]) Out-Patient Physical Therapy Visit Information Visit Information Visit Type Initial Evaluation Visit Start Time 07:30 Visit Stop Time 08:15 Total Visit Minutes 45 Visit Number 1 Evaluation Information Evaluation Date 11/06/19 PT-OP-B Current Condition Start: 11/06/19 07:15 Freq: Status: Active Protocol: Document 11/06/19 07:30 EG (Rec: 11/06/19 15:18 EG [id number]) Current Condition History of Current Condition Onset Date 1 year ago (10/2018) Current Complaints Deep pelvic pain and feeling of pressure. Incontinence History of Current Condition Patient is a 39 year old female who reports to physical therapy with c/c of incontinence, deep pelvic pain , and pressure in pelvis. Patient also reports low back pain and pain on sit bones which she is seeing another PT for. She is specifically concerned about her urine frequency and urine urgency. She reports needing to go to the bathroom 11-14x throughout the day (about every 30 minutes) and about 3x in the evening. She does wear a maxi- pad and leaks urine a few times throughout the day but does not wet her pants. She does not know if coughing makes her leak or not because of the pad but she does notice urine on the pad when she reaches the bathroom. Patient initially thought she had a UTI due to the frequency of urination but was negatively tested for this. Patient reports dyspareunia but it is not consistent and depends on the position she is in. The patient did report a fall 1 year ago when she injured her tailbone and thinks this might be related. The patient reports history of constipation and says that she is drinking a lot of fluids and and eating enough fiber. The patient also reports that she had bronchitis in July,. The patient reports pain inside of the pelvis and pressure in this area. The patient has 2 children (9 and 11 years ago) which she reports as traumatic with one child stuck on pelvic bone for 3+ hours and a vacuum was used. The patient reports that cold is a small trigger for her urgency but she tries to go to the bathroom before going out in to the cold to prevent urgency. The patient reports that she can initiate the urine when she goes to the bathroom but she does not feel like she can void completely. The patient would like to get this under control . Treatment Goals Patient/Caregiver Goals She would like to go to the bathroom less and have less urgency. 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 Functional Limitations- Work/School Has to go to bathroom frequently during work. has to sit on cushion during work Personal Factors Other Personal Factors That May Effect Seasonal Allergies Therapy/Recovery Back pain Dizziness and headaches Neck pain past hernia surgery Past concussion PT-OP-C Subjective Start: 11/06/19 07:15 Freq: Status: Active Protocol: Document 11/06/19 07:30 EG (Rec: 11/06/19 15:18 EG [email or web address]) Patient Questionnaires Pelvic Pain and Urgency/Frequency Patient Symptom Scale Pelvic Pain Score 27 PT-OP-I Pelvic Floor Start: 11/06/19 07:15 Freq: Status: Active Protocol: Document 11/06/19 07:30 AMB (Rec: 11/06/19 08:42 AMB [id number]) Pelvic Floor Assessment Urine Pelvic Floor Surgery No Urinary Symptoms Pain Leakage Size Small Leakage Cause Urge Other Leakage Causes denies triggers, unsure if lifting/ sneezing cause leak because wears a pad Leaks Per Day variable Voiding Frequency 30 min- 2 hours Nocturia 3 Urine Pad Type Maxi Pad Bowel Bowel Symptoms Constipation Graham Stool Chart Type 1-7 1 Pelvic Clock Pelvic Clock 12-3 Tenderness,Tightness Pelvic Clock 3-6 Hypertonic,Tenderness, Tightness Pelvic Clock 6-9 Tenderness Pelvic Clock 9-12 Tenderness Prolapse Cystocele Grade 1 Perineal Descent Resting Absent Bearing Present Contraction Ability Voluntary Contraction Weak Manual Muscle Testing Left 2 Manual Muscle Testing Right 2 Manual Muscle Testing Anterior 2 Manual Muscle Testing Posterior 2 Muscle Endurance (Seconds) 5 Comments Pelvic Floor Comments Patricia with significant pain on her left side, tender throughout assessment, but palpable tightness at levator ani and bulbospongiosus PT-OP-T Assessment and Plan Start: 11/06/19 07:15 Freq: Status: Active Protocol: Document 11/06/19 07:30 AMB (Rec: 11/06/19 14:42 AMB [id number]) Physical Therapy Assessment Rehab Potential Rehabilitation Potential Good Evaluation Complexity Number of Personal Factors/Comorbidities 1-2 Number of Body Systems Impaired 3 Clinical Presentation at Evaluation Evolving Impairments Impairments Functional Activities,Pain, Strength Goals One Impairment nocturia Custodial Goal (LTG) Patricia will reduce her nocturia to 1x/night or less. LTG Duration 8 weeks pelvic pain Short Term Goal (STG) Patricia will report she is able to engage in sexual intercourse without pain. STG Duration 4 weeks Custodial Goal (LTG) Patricia will tolerate palpation throughout her pelvic floor musculature without an increase in her baseline pain. LTG Duration 8 weeks continence Short Term Goal (STG) Patricia will use urge reduction techniques to decrease her frequency of urination to once every 2 hours without leaking . STG Duration 4 weeks Custodial Goal (LTG) Patricia will use urge reduction techniques so she no longer needs to wear pads during the day. LTG Duration 8 weeks Assessment Summary Assessment Patricia attends pelvic floor PT for pelvic pain and urgency/ frequency/leaking. She has had some of these issues since the of her children, but it is significantly worse in the last year. Upon assessment she had significant tightness and pain on the left levator ani. She was able to perform pelvic floor contraction, but poor at levator ani, mostly at superficial muscles. She will benefit from PT to improve her pelvic floor flexibility and strength, and for instruction in urge reduction techniques. Physical Therapy Plan Frequency and Duration Frequency of Treatment 1x/Week Duration of Treatment 8 weeks Plan of Care Start Date 11/06/19 Plan of Care End Date 01/01/20 Therapeutic Interventions Therapeutic Interventions Home Exercise Program,Manual Therapy,Neuromuscular Re- education,Self-Care/Home Management,Therapeutic Activities,Therapeutic Exercises Modalities Biofeedback,Electric Stimulation Next Visit Focus/Plan Next Note Type Treatment Note Next Visit Plan Begin with pelvic floor/ hip stretching, and then progress to manual release of L pelvic floor.
--- NOTE | 2019-11-06 17:15 | PT.OPPOC ---
Physical, Occupational & Speech Therapy At [facility] Current Diagnoses Pelvic and perineal pain (11/06/19) Unspecified urinary incontinence (11/06/19) Visit Care Team Role Provider Type Kym Celis DO Attending Provider Physician Primary Care Provider Specialty: Family Practice Address: [address] [place] [address], [id number] Email: [email or web address] Plan Of Care PT-OP-T Assessment and Plan Start: 11/06/19 07:15 Freq: Status: Active Protocol: Document 11/06/19 07:30 AMB (Rec: 11/06/19 14:42 AMB [id number]) Physical Therapy Assessment Rehab Potential Rehabilitation Potential Good Evaluation Complexity Number of Personal Factors/Comorbidities 1-2 Number of Body Systems Impaired 3 Clinical Presentation at Evaluation Evolving Impairments Impairments Functional Activities,Pain, Strength Goals One Impairment nocturia Rectification Printer Goal (LTG) Patricia will reduce her nocturia to 1x/night or less. LTG Duration 8 weeks pelvic pain Short Term Goal (STG) Patricia will report she is able to engage in sexual intercourse without pain. STG Duration 4 weeks Fdc Goal (LTG) Patricia will tolerate palpation throughout her pelvic floor musculature without an increase in her baseline pain. LTG Duration 8 weeks continence Short Term Goal (STG) Patricia will use urge reduction techniques to decrease her frequency of urination to once every 2 hours without leaking . STG Duration 4 weeks Rectification Printer Goal (LTG) Patricia will use urge reduction techniques so she no longer needs to wear pads during the day. LTG Duration 8 weeks Assessment Summary Assessment Patricia attends pelvic floor PT for pelvic pain and urgency/ frequency/leaking. She has had some of these issues since the of her children, but it is significantly worse in the last year. Upon assessment she had significant tightness and pain on the left levator ani. She was able to perform pelvic floor contraction, but poor at levator ani, mostly at superficial muscles. She will benefit from PT to improve her pelvic floor flexibility and strength, and for instruction in urge reduction techniques. Physical Therapy Plan Frequency and Duration Frequency of Treatment 1x/Week Duration of Treatment 8 weeks Plan of Care Start Date 11/06/19 Plan of Care End Date 01/01/20 Therapeutic Interventions Therapeutic Interventions Home Exercise Program,Manual Therapy,Neuromuscular Re- education,Self-Care/Home Management,Therapeutic Activities,Therapeutic Exercises Modalities Biofeedback,Electric Stimulation Next Visit Focus/Plan Next Note Type Treatment Note Next Visit Plan Begin with pelvic floor/ hip stretching, and then progress to manual release of L pelvic floor. Plan of Care Dates Plan of Care Start Date 11/06/19 Plan of Care End Date 01/01/20 Electronically Signed by: Deaj Flowers, PT 11/06/19 8095 Please Sign and Return: I have reviewed this Plan of Care and certify that the skilled therapy services above are required to meet the patient?s needs. Physician Signature Date Printed Name and Credentials Clinical Instructor Signature Printed Name and Credentials
--- NOTE | 2019-11-13 12:08 | PT.OTN ---
Current Diagnoses Pelvic and perineal pain (11/13/19) Unspecified urinary incontinence (11/13/19) Physical Therapy Treatment Note PT-OP-A Visit Information Start: 11/06/19 07:15 Freq: Status: Active Protocol: Document 11/13/19 07:45 AMB (Rec: 11/13/19 12:08 AMB [id number]) Out-Patient Physical Therapy Visit Information Visit Information Visit Type Treatment Note Visit Start Time 07:45 Visit Stop Time 08:15 Total Visit Minutes 30 Visit Number 2 PT-OP-B Current Condition Start: 11/06/19 07:15 Freq: Status: Active Protocol: Document 11/06/19 07:30 EG (Rec: 11/06/19 15:18 EG [id number]) Current Condition History of Current Condition Onset Date 1 year ago (10/2018) Current Complaints Deep pelvic pain and feeling of pressure. Incontinence History of Current Condition Patient is a 39 year old female who reports to physical therapy with c/c of incontinence, deep pelvic pain , and pressure in pelvis. Patient also reports low back pain and pain on sit bones which she is seeing another PT for. She is specifically concerned about her urine frequency and urine urgency. She reports needing to go to the bathroom 11-14x throughout the day (about every 30 minutes) and about 3x in the evening. She does wear a maxi- pad and leaks urine a few times throughout the day but does not wet her pants. She does not know if coughing makes her leak or not because of the pad but she does notice urine on the pad when she reaches the bathroom. Patient initially thought she had a UTI due to the frequency of urination but was negatively tested for this. Patient reports dyspareunia but it is not consistent and depends on the position she is in. The patient did report a fall 1 year ago when she injured her tailbone and thinks this might be related. The patient reports history of constipation and says that she is drinking a lot of fluids and and eating enough fiber. The patient also reports that she had bronchitis in July,. The patient reports pain inside of the pelvis and pressure in this area. The patient has 2 children (9 and 11 years ago) which she reports as traumatic with one child stuck on pelvic bone for 3+ hours and a vacuum was used. The patient reports that cold is a small trigger for her urgency but she tries to go to the bathroom before going out in to the cold to prevent urgency. The patient reports that she can initiate the urine when she goes to the bathroom but she does not feel like she can void completely. The patient would like to get this under control . Treatment Goals Patient/Caregiver Goals She would like to go to the bathroom less and have less urgency. 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 Functional Limitations- Work/School Has to go to bathroom frequently during work. has to sit on cushion during work Personal Factors Other Personal Factors That May Effect Seasonal Allergies Therapy/Recovery Back pain Dizziness and headaches Neck pain past hernia surgery Past concussion PT-OP-C Subjective Start: 11/06/19 07:15 Freq: Status: Active Protocol: Document 11/13/19 07:45 AMB (Rec: 11/13/19 12:08 AMB [id number]) OP-PT Subjective Patient Comments Patient Comments Pt states she was able to have a normal BM after her initial eval. She has not been able to use the dilator yet, but has been doing her back PT exercises. PT-OP-I Pelvic Floor Start: 11/06/19 07:15 Freq: Status: Active Protocol: Document 11/06/19 07:30 AMB (Rec: 11/06/19 08:42 AMB [id number]) Pelvic Floor Assessment Urine Pelvic Floor Surgery No Urinary Symptoms Pain Leakage Size Small Leakage Cause Urge Other Leakage Causes denies triggers, unsure if lifting/ sneezing cause leak because wears a pad Leaks Per Day variable Voiding Frequency 30 min- 2 hours Nocturia 3 Urine Pad Type Maxi Pad Bowel Bowel Symptoms Constipation Harding Stool Chart Type 1-7 1 Pelvic Clock Pelvic Clock 12-3 Tenderness,Tightness Pelvic Clock 3-6 Hypertonic,Tenderness, Tightness Pelvic Clock 6-9 Tenderness Pelvic Clock 9-12 Tenderness Prolapse Cystocele Grade 1 Perineal Descent Resting Absent Bearing Present Contraction Ability Voluntary Contraction Weak Manual Muscle Testing Left 2 Manual Muscle Testing Right 2 Manual Muscle Testing Anterior 2 Manual Muscle Testing Posterior 2 Muscle Endurance (Seconds) 5 Comments Pelvic Floor Comments Patricia with significant pain on her left side, tender throughout assessment, but palpable tightness at levator ani and bulbospongiosus PT-OP-Q Treatments Start: 11/06/19 07:15 Freq: Status: Active Protocol: Document 11/13/19 07:45 AMB (Rec: 11/13/19 12:08 AMB [id number]) Manual Therapy Treatment Manual Techniques 1 Type internal release of L>R levator ani and obterator internus Body Position Hooklying Comments TrP release, manual stretching PT-OP-T Assessment and Plan Start: 11/06/19 07:15 Freq: Status: Active Protocol: Document 11/13/19 07:45 AMB (Rec: 11/13/19 12:08 AMB [id number]) Physical Therapy Assessment Assessment Summary Assessment Patricia tolerated manual therapy well during session. Continued more tenderness on the L. Follow up on tolerance to manual therapy for days following intervention next visit. Physical Therapy Plan Next Visit Focus/Plan Next Note Type Treatment Note Next Visit Plan Begin with pelvic floor/ hip stretching, and then progress to manual release of L pelvic floor, then work on strengthening/ continue to educate on urge reduction.
--- NOTE | 2019-11-27 13:12 | PT.OTN ---
Current Diagnoses Pelvic and perineal pain (11/27/19) Unspecified urinary incontinence (11/27/19) Physical Therapy Treatment Note PT-OP-A Visit Information Start: 11/06/19 07:15 Freq: Status: Active Protocol: Document 11/27/19 07:30 EG (Rec: 11/27/19 12:47 EG [email or web address]) Out-Patient Physical Therapy Visit Information Visit Information Visit Type Treatment Note Visit Start Time 07:30 Visit Stop Time 08:20 Total Visit Minutes 50 Visit Number 3 PT-OP-B Current Condition Start: 11/06/19 07:15 Freq: Status: Active Protocol: Document 11/06/19 07:30 EG (Rec: 11/06/19 15:18 EG [id number]) Current Condition History of Current Condition Onset Date 1 year ago (10/2018) Current Complaints Deep pelvic pain and feeling of pressure. Incontinence History of Current Condition Patient is a 39 year old female who reports to physical therapy with c/c of incontinence, deep pelvic pain , and pressure in pelvis. Patient also reports low back pain and pain on sit bones which she is seeing another PT for. She is specifically concerned about her urine frequency and urine urgency. She reports needing to go to the bathroom 11-14x throughout the day (about every 30 minutes) and about 3x in the evening. She does wear a maxi- pad and leaks urine a few times throughout the day but does not wet her pants. She does not know if coughing makes her leak or not because of the pad but she does notice urine on the pad when she reaches the bathroom. Patient initially thought she had a UTI due to the frequency of urination but was negatively tested for this. Patient reports dyspareunia but it is not consistent and depends on the position she is in. The patient did report a fall 1 year ago when she injured her tailbone and thinks this might be related. The patient reports history of constipation and says that she is drinking a lot of fluids and and eating enough fiber. The patient also reports that she had bronchitis in July,. The patient reports pain inside of the pelvis and pressure in this area. The patient has 2 children (9 and 11 years ago) which she reports as traumatic with one child stuck on pelvic bone for 3+ hours and a vacuum was used. The patient reports that cold is a small trigger for her urgency but she tries to go to the bathroom before going out in to the cold to prevent urgency. The patient reports that she can initiate the urine when she goes to the bathroom but she does not feel like she can void completely. The patient would like to get this under control . Treatment Goals Patient/Caregiver Goals She would like to go to the bathroom less and have less urgency. 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 Functional Limitations- Work/School Has to go to bathroom frequently during work. 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 The blisters have since healed in the last week but she was surprised she got this. Patient feels that she has had less frequency of leaks in the past couple weaks and is able to control urgency a little more by practicing the urgency exercise at home. PT-OP-I Pelvic Floor Start: 11/06/19 07:15 Freq: Status: Active Protocol: Document 11/06/19 07:30 AMB (Rec: 11/06/19 08:42 AMB [id number]) Pelvic Floor Assessment Urine Pelvic Floor Surgery No Urinary Symptoms Pain Leakage Size Small Leakage Cause Urge Other Leakage Causes denies triggers, unsure if lifting/ sneezing cause leak because wears a pad Leaks Per Day variable Voiding Frequency 30 min- 2 hours Nocturia 3 Urine Pad Type Maxi Pad Bowel Bowel Symptoms Constipation [place] Stool Chart Type 1-7 1 Pelvic Clock Pelvic Clock 12-3 Tenderness,Tightness Pelvic Clock 3-6 Hypertonic,Tenderness, Tightness Pelvic Clock 6-9 Tenderness Pelvic Clock 9-12 Tenderness Prolapse Cystocele Grade 1 Perineal Descent Resting Absent Bearing Present Contraction Ability Voluntary Contraction Weak Manual Muscle Testing Left 2 Manual Muscle Testing Right 2 Manual Muscle Testing Anterior 2 Manual Muscle Testing Posterior 2 Muscle Endurance (Seconds) 5 Comments Pelvic Floor Comments Patricia with significant pain on her left side, tender throughout assessment, but palpable tightness at levator ani and bulbospongiosus PT-OP-Q Treatments Start: 11/06/19 07:15 Freq: Status: Active Protocol: Document 11/27/19 07:30 EG (Rec: 11/27/19 12:47 EG [email or web address]) Therapeutic Exercises Supine Exercises hamstring/adductor/abductor stretch Supine Exercise Name hs/adductor/ITB stretch with leg extended and supine Side bilateral Reps/Minutes 30 sec each Comments used strap around foot 1/2 happy baby pose Supine Exercise Name unilateral hip flexion with knee at 90deg and leg abd to outside of trunk Side bilateral Reps/Minutes 30 sec Comments contralateral knee and hip bent and on ground supine pigeon Supine Exercise Name supine pigeon pose Side bilateral Reps/Minutes 30 sec Manual Therapy Treatment Soft Tissue Mobilization 3 Body Location glute med, piriformis, ITB Mobilization Type Myofascial Release,Trigger Point Release Intensity/Depth Moderate Body Position Sidelying Comments Bilateral - increased tenderness on L side posterior to greater trochanter Manual Techniques 2 Type Hip PROM all planes Body Location bilateral hip Body Position Supine Comments hip flexion with knee extended and bent, ER, IR, Extension PT-OP-T Assessment and Plan Start: 11/06/19 07:15 Freq: Status: Active Protocol: Document 11/27/19 07:30 EG (Rec: 11/27/19 12:47 EG [email or web address]) Physical Therapy Assessment Assessment Summary Assessment Patient tolerated hip stretching and elongating well this morning. She did need verbal and tactile cues to perform HEP with correct form but was able to correctly perform the stretches. Patient had increased tightness of hips L>R. Patient was told to take deep diaphragmatic breaths throughout the treatment today. Physical Therapy Plan Next Visit Focus/Plan Next Note Type Treatment Note Next Visit Plan Assess how HEP is going and any questions of the hip stretches. Possibly begin biofeedback. assess pain and urgency IDeja, DPT, supervised all treatment performed by, and agreed with the plan of care, as performed by April Lew, SIMEON.
--- NOTE | 2019-12-04 15:18 | PT.OTN ---
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 Incontinence History of Current Condition Patient is a 39 year old female who reports to physical therapy with c/c of incontinence, deep pelvic pain , and pressure in pelvis. Patient also reports low back pain and pain on sit bones which she is seeing another PT for. She is specifically concerned about her urine frequency and urine urgency. She reports needing to go to the bathroom 11-14x throughout the day (about every 30 minutes) and about 3x in the evening. She does wear a maxi- pad and leaks urine a few times throughout the day but does not wet her pants. She does not know if coughing makes her leak or not because of the pad but she does notice urine on the pad when she reaches the bathroom. Patient initially thought she had a UTI due to the frequency of urination but was negatively tested for this. Patient reports dyspareunia but it is not consistent and depends on the position she is in. The patient did report a fall 1 year ago when she injured her tailbone and thinks this might be related. The patient reports history of constipation and says that she is drinking a lot of fluids and and eating enough fiber. The patient also reports that she had bronchitis in July,. The patient reports pain inside of the pelvis and pressure in this area. The patient has 2 children (9 and 11 years ago) which she reports as traumatic with one child stuck on pelvic bone for 3+ hours and a vacuum was used. The patient reports that cold is a small trigger for her urgency but she tries to go to the bathroom before going out in to the cold to prevent urgency. The patient reports that she can initiate the urine when she goes to the bathroom but she does not feel like she can void completely. The patient would like to get this under control . Treatment Goals Patient/Caregiver Goals She would like to go to the bathroom less and have less urgency. 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 Functional Limitations- Work/School Has to go to bathroom frequently during work. has to sit on cushion during work Personal Factors Other Personal Factors That May Effect Seasonal Allergies Therapy/Recovery Back pain Dizziness and headaches Neck pain past hernia surgery Past concussion PT-OP-C Subjective Start: 11/06/19 07:15 Freq: Status: Active Protocol: Document 12/04/19 07:45 [facility] (Rec: 12/04/19 10:10 [facility] [id number]) OP-PT Subjective Patient Comments Patient Comments Patient reported feeling very sore this AM due to PT for her back yesterday. She is not feeling up for doing much of anything today. She did have some urgency this past week and had a leak on Saturday when her pain in the hip was worse . She has been doing her stretches at home and they are feeling okay. PT-OP-I Pelvic Floor Start: 11/06/19 07:15 Freq: Status: Active Protocol: Document 11/06/19 07:30 [facility] (Rec: 11/06/19 08:42 [facility] [id number]) Pelvic Floor Assessment Urine Pelvic Floor Surgery No Urinary Symptoms Pain Leakage Size Small Leakage Cause Urge Other Leakage Causes denies triggers, unsure if lifting/ sneezing cause leak because wears a pad Leaks Per Day variable Voiding Frequency 30 min- 2 hours Nocturia 3 Urine Pad Type Maxi Pad Bowel Bowel Symptoms Constipation [place] Stool Chart Type 1-7 1 Pelvic Clock Pelvic Clock 12-3 Tenderness,Tightness Pelvic Clock 3-6 Hypertonic,Tenderness, Tightness Pelvic Clock 6-9 Tenderness Pelvic Clock 9-12 Tenderness Prolapse Cystocele Grade 1 Perineal Descent Resting Absent Bearing Present Contraction Ability Voluntary Contraction Weak Manual Muscle Testing Left 2 Manual Muscle Testing Right 2 Manual Muscle Testing Anterior 2 Manual Muscle Testing Posterior 2 Muscle Endurance (Seconds) 5 Comments Pelvic Floor Comments Patricia with significant pain on her left side, tender throughout assessment, but palpable tightness at levator ani and bulbospongiosus PT-OP-Q Treatments Start: 11/06/19 07:15 Freq: Status: Active Protocol: Document 12/04/19 07:45 [facility] (Rec: 12/04/19 09:31 [facility] [id number]) Gym Equipment Therapeutic Ball Low Trunk Rotation Exercise Details DKTC, low trunk rotation Ball Size/Color 65 inch Body Position Supine Reps/Duration 20x each Comments Increased tension in L low back while doing trunk rotation Therapeutic Exercises Supine Exercises Benk Knee Fall Out Supine Exercise Name Alternating Bent Knee fall out Side bilateral Reps/Minutes 10x each Comments decreased ROM in L hip 1/2 happy baby pose Supine Exercise Name unilateral hip flexion with knee at 90deg and leg abd to outside of trunk Side bilateral Comments cue to hold above coronado instead of behind supine pigeon Supine Exercise Name supine pigeon pose Side bilateral Comments cue to bring toe in to dorsiflexion Neuro Re-Education Treatment Other Activities Relaxation Breathing Technique Details Relaxation Breathing Technique Reps/Duration 15 min Comments Deep belly breathing, increase exhalation count - focus on relaxing pelvic floor and deep hip muscles PT-OP-T Assessment and Plan Start: 11/06/19 07:15 Freq: Status: Active Protocol: Document 12/04/19 07:45 [facility] (Rec: 12/04/19 12:39 [facility] [id number]) Physical Therapy Assessment Assessment Summary Assessment Patient had increased tension in pelvic floor today due to increased pain of L hip and low back. Patient could perform some low intensity stretches but still felt strain in the deep hip. Was decided to to biofeedback when patient was not flared up. Patient did well with breathing technique but still experienced discomfort when done with treatment. Continue with education on urge reduction as well as soft tissue lengthening of the L hip to help decrease tension in pelvic floor musculature. Physical Therapy Plan Frequency and Duration Frequency of Treatment 1x/Week Duration of Treatment 8 weeks Plan of Care Start Date 11/06/19 Plan of Care End Date 01/01/20 Next Visit Focus/Plan Next Note Type Treatment Note Next Visit Plan Assess tightness of L hip and low back. Consider doing biofeedback if experiencing less pain in hip. IDeja, DPT, supervised all treatment performed by, and agreed with the plan of care, as performed by April Lew, SPT.
--- NOTE | 2019-12-11 13:18 | PT.OTN ---
Current Diagnoses Pelvic and perineal pain (12/11/19) Unspecified urinary incontinence (12/11/19) Physical Therapy Treatment Note PT-OP-A Visit Information Start: 11/06/19 07:15 Freq: Status: Active Protocol: Document 12/11/19 07:45 EG (Rec: 12/11/19 08:26 EG [id number]) Out-Patient Physical Therapy Visit Information Visit Information Visit Type Treatment Note Visit Note Patient 15 minutes late Visit Start Time 07:45 Visit Stop Time 08:15 Total Visit Minutes 30 Visit Number 5 Number of ANIMAL NURSE Visits 0 PT-OP-B Current Condition Start: 11/06/19 07:15 Freq: Status: Active Protocol: Document 11/06/19 07:30 EG (Rec: 11/06/19 15:18 EG [id number]) Current Condition History of Current Condition Onset Date 1 year ago (10/2018) Current Complaints Deep pelvic pain and feeling of pressure. Incontinence History of Current Condition Patient is a 39 year old female who reports to physical therapy with c/c of incontinence, deep pelvic pain , and pressure in pelvis. Patient also reports low back pain and pain on sit bones which she is seeing another PT for. She is specifically concerned about her urine frequency and urine urgency. She reports needing to go to the bathroom 11-14x throughout the day (about every 30 minutes) and about 3x in the evening. She does wear a maxi- pad and leaks urine a few times throughout the day but does not wet her pants. She does not know if coughing makes her leak or not because of the pad but she does notice urine on the pad when she reaches the bathroom. Patient initially thought she had a UTI due to the frequency of urination but was negatively tested for this. Patient reports dyspareunia but it is not consistent and depends on the position she is in. The patient did report a fall 1 year ago when she injured her tailbone and thinks this might be related. The patient reports history of constipation and says that she is drinking a lot of fluids and and eating enough fiber. The patient also reports that she had bronchitis in July,. The patient reports pain inside of the pelvis and pressure in this area. The patient has 2 children (9 and 11 years ago) which she reports as traumatic with one child stuck on pelvic bone for 3+ hours and a vacuum was used. The patient reports that cold is a small trigger for her urgency but she tries to go to the bathroom before going out in to the cold to prevent urgency. The patient reports that she can initiate the urine when she goes to the bathroom but she does not feel like she can void completely. The patient would like to get this under control . Treatment Goals Patient/Caregiver Goals She would like to go to the bathroom less and have less urgency. 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 Functional Limitations- Work/School Has to go to bathroom frequently during work. has to sit on cushion during work Personal Factors Other Personal Factors That May Effect Seasonal Allergies Therapy/Recovery Back pain Dizziness and headaches Neck pain past hernia surgery Past concussion PT-OP-C Subjective Start: 11/06/19 07:15 Freq: Status: Active Protocol: Document 12/11/19 07:45 EG (Rec: 12/11/19 08:26 EG [id number]) OP-PT Subjective Patient Comments Patient Comments Patient reported that she feels that she is on a roller coaster. She had a leak on saturday due to urge and feels she couldn't control it with quick flicks or breathing . She has had her back pain too over this week. Patient reports having diarrhea yesterday so she doesn't know what is going on. Patient Reported Progress Same PT-OP-I Pelvic Floor Start: 11/06/19 07:15 Freq: Status: Active Protocol: Document 11/06/19 07:30 AMB (Rec: 11/06/19 08:42 AMB [id number]) Pelvic Floor Assessment Urine Pelvic Floor Surgery No Urinary Symptoms Pain Leakage Size Small Leakage Cause Urge Other Leakage Causes denies triggers, unsure if lifting/ sneezing cause leak because wears a pad Leaks Per Day variable Voiding Frequency 30 min- 2 hours Nocturia 3 Urine Pad Type Maxi Pad Bowel Bowel Symptoms Constipation [place] Stool Chart Type 1-7 1 Pelvic Clock Pelvic Clock 12-3 Tenderness,Tightness Pelvic Clock 3-6 Hypertonic,Tenderness, Tightness Pelvic Clock 6-9 Tenderness Pelvic Clock 9-12 Tenderness Prolapse Cystocele Grade 1 Perineal Descent Resting Absent Bearing Present Contraction Ability Voluntary Contraction Weak Manual Muscle Testing Left 2 Manual Muscle Testing Right 2 Manual Muscle Testing Anterior 2 Manual Muscle Testing Posterior 2 Muscle Endurance (Seconds) 5 Comments Pelvic Floor Comments Patricia with significant pain on her left side, tender throughout assessment, but palpable tightness at levator ani and bulbospongiosus PT-OP-Q Treatments Start: 11/06/19 07:15 Freq: Status: Active Protocol: Document 12/11/19 07:45 EG (Rec: 12/11/19 08:26 EG [id number]) Neuro Re-Education Treatment Other Activities Biofeedback Details Biofeedback Reps/Duration 23 min Comments supine baseline: 4.1 average side-lying baseline: 9.3, but able to relax to 5.5 between contractions in side-lying 5 contract/10 relax: 25.5 average with increased lower back pain Quick Flicks: increased resting baseline as progressed - 21.1 avg Self-Care/Home Management Treatment Education Patient Education Home Exercise Program,Pain Management Other Education Emphasized importance of doing dilator at home to home decrease resting baseline and decrease tension in PF PT-OP-T Assessment and Plan Start: 11/06/19 07:15 Freq: Status: Active Protocol: Document 12/11/19 07:45 EG (Rec: 12/11/19 12:33 EG [id number]) Physical Therapy Assessment Assessment Summary Assessment Patient was more emotional today than past sessions due to frusturation with pain. She was tested with biofeedback to see state of pelvic floor muscle activation and presented as expected due to history and current state of lower back pain. Resting baseline was slightly higher than normal. Patient will benefit from relaxation techniques to help decrease tension in pelvic floor muscles. Patient was instructed on importance of using dilator at home to help decrease muscle tension and increase ROM of the pelvic floor musculature with full relaxation and contraction possible. Strength of pelvic floor is within normal limits. Physical Therapy Plan Frequency and Duration Frequency of Treatment 1x/Week Duration of Treatment 8 weeks Plan of Care Start Date 11/06/19 Plan of Care End Date 01/01/20 Next Visit Focus/Plan Next Note Type Treatment Note Next Visit Plan Assess tightness of L hip and low back. Ask about dilator usage this past week. Soft tissue lengthening of pelvic floor if tolerated IDeja, ARSENT, supervised all treatment performed by, and agreed with the plan of care, as performed by April Lew, SIMEON.
--- NOTE | 2019-12-18 13:09 | PT.OTN ---
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 Incontinence History of Current Condition Patient is a 39 year old female who reports to physical therapy with c/c of incontinence, deep pelvic pain , and pressure in pelvis. Patient also reports low back pain and pain on sit bones which she is seeing another PT for. She is specifically concerned about her urine frequency and urine urgency. She reports needing to go to the bathroom 11-14x throughout the day (about every 30 minutes) and about 3x in the evening. She does wear a maxi- pad and leaks urine a few times throughout the day but does not wet her pants. She does not know if coughing makes her leak or not because of the pad but she does notice urine on the pad when she reaches the bathroom. Patient initially thought she had a UTI due to the frequency of urination but was negatively tested for this. Patient reports dyspareunia but it is not consistent and depends on the position she is in. The patient did report a fall 1 year ago when she injured her tailbone and thinks this might be related. The patient reports history of constipation and says that she is drinking a lot of fluids and and eating enough fiber. The patient also reports that she had bronchitis in July,. The patient reports pain inside of the pelvis and pressure in this area. The patient has 2 children (9 and 11 years ago) which she reports as traumatic with one child stuck on pelvic bone for 3+ hours and a vacuum was used. The patient reports that cold is a small trigger for her urgency but she tries to go to the bathroom before going out in to the cold to prevent urgency. The patient reports that she can initiate the urine when she goes to the bathroom but she does not feel like she can void completely. The patient would like to get this under control . Treatment Goals Patient/Caregiver Goals She would like to go to the bathroom less and have less urgency. 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 Functional Limitations- Work/School Has to go to bathroom frequently during work. has to sit on cushion during work Personal Factors Other Personal Factors That May Effect Seasonal Allergies Therapy/Recovery Back pain Dizziness and headaches Neck pain past hernia surgery Past concussion PT-OP-C Subjective Start: 11/06/19 07:15 Freq: Status: Active Protocol: Document 12/18/19 07:45 [facility] (Rec: 12/18/19 08:16 [facility] [id number]) OP-PT Subjective Patient Comments Patient Comments Urgency has been up and down still. Had one little leak on Saturday which she tried to do her urge control exercises and couldn't hold it. She was able to use the dilator twice, but has some questions about that regarding position. Patient's pain has been feeling quite a bit better. She feels as if she has more normal urination opposed to not normal urination Patient Reported Progress Improving PT-OP-I Pelvic Floor Start: 11/06/19 07:15 Freq: Status: Active Protocol: Document 11/06/19 07:30 [facility] (Rec: 11/06/19 08:42 [facility] [id number]) Pelvic Floor Assessment Urine Pelvic Floor Surgery No Urinary Symptoms Pain Leakage Size Small Leakage Cause Urge Other Leakage Causes denies triggers, unsure if lifting/ sneezing cause leak because wears a pad Leaks Per Day variable Voiding Frequency 30 min- 2 hours Nocturia 3 Urine Pad Type Maxi Pad Bowel Bowel Symptoms Constipation Mclean Stool Chart Type 1-7 1 Pelvic Clock Pelvic Clock 12-3 Tenderness,Tightness Pelvic Clock 3-6 Hypertonic,Tenderness, Tightness Pelvic Clock 6-9 Tenderness Pelvic Clock 9-12 Tenderness Prolapse Cystocele Grade 1 Perineal Descent Resting Absent Bearing Present Contraction Ability Voluntary Contraction Weak Manual Muscle Testing Left 2 Manual Muscle Testing Right 2 Manual Muscle Testing Anterior 2 Manual Muscle Testing Posterior 2 Muscle Endurance (Seconds) 5 Comments Pelvic Floor Comments Patricia with significant pain on her left side, tender throughout assessment, but palpable tightness at levator ani and bulbospongiosus PT-OP-Q Treatments Start: 11/06/19 07:15 Freq: Status: Active Protocol: Document 12/18/19 07:45 [facility] (Rec: 12/18/19 08:16 [facility] [id number]) Manual Therapy Treatment Manual Techniques 2 Type External Pelvic Floor Release Body Position Supine Comments L levator Ani Trigger point for patient 1 Type Superior Bladder Suggestion Body Location Bladder Body Position Hooklying Comments Slight discomfort Self-Care/Home Management Treatment Education Patient Education Home Exercise Program Other Education Proper use of Dilator PT-OP-T Assessment and Plan Start: 11/06/19 07:15 Freq: Status: Active Protocol: Document 12/18/19 07:45 [facility] (Rec: 12/18/19 08:16 [facility] [id number]) Physical Therapy Assessment Assessment Summary Assessment Patient was less irritable regarding her low back pain today and had some relief after having muscles that attach to coccyx stretched out . She did have some discomfort with bladder superior suggestion as well as soft tissue mobilization of external pelvic floor. After treatment, the patient did have a spam of R adductor mm possibly from tension when performing L pelvic floor release. She should continue to benefit from relaxation techniques to help release tension in pelvic floor musculature as well as soft tissue lengthening exercises of hip musculature. Physical Therapy Plan Frequency and Duration Frequency of Treatment 1x/Week Duration of Treatment 8 weeks Plan of Care Start Date 11/06/19 Plan of Care End Date 01/01/20 Next Visit Focus/Plan Next Note Type Treatment Note Next Visit Plan Assess how things are going at home and how she felt after treatment this past time.
--- NOTE | 2020-03-28 18:32 | PT.OPPOC ---
Physical, Occupational & Speech Therapy At [facility] Current Diagnoses Pelvic and perineal pain (03/28/20) Unspecified urinary incontinence (03/28/20) Visit Care Team Role Provider Type Kym Celis DO Attending Provider Physician Primary Care Provider Specialty: Family Practice Address: [address] [place] [address], [place], [address] Email: [email or web address] Plan Of Care PT-OP-T Assessment and Plan Start: 11/06/19 07:15 Freq: Status: Active Protocol: Document 03/28/20 17:51 [facility] (Rec: 03/28/20 18:32 [facility] [email or web address]) Physical Therapy Assessment Goals One Impairment nocturia Halfway Goal (LTG) Patricia will reduce her nocturia to 1x/night or less. LTG Duration 8 weeks pelvic pain Short Term Goal (STG) Patricia will report she is able to engage in sexual intercourse without pain. STG Duration 4 weeks On Site Property Manager Goal (LTG) Patricia will tolerate palpation throughout her pelvic floor musculature without an increase in her baseline pain. LTG Duration 8 weeks continence Short Term Goal (STG) Patricia will use urge reduction techniques to decrease her frequency of urination to once every 2 hours without leaking . STG Duration 4 weeks Halfway Goal (LTG) Patricia will use urge reduction techniques so she no longer needs to wear pads during the day. LTG Duration 8 weeks sitting On Site Property Manager Goal (LTG) Pt will be able to sit for as long as needed without inc pain. 12/22-still feels tight with sitting LTG Duration 05/24/20 ROM Short Term Goal (STG) Pt will have WNL ROM. 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 LTG Duration 06/28/20 strength Short Term Goal (STG) Pt will be indep with HEP. STG Duration achieved On Site Property Manager Goal (LTG) Pt will score 5/5 LPM, VCT, and EFT in order to show improved core stability in order to allow her to participate in all work without inc pain. 3/18-improved LPM LTG Duration 05/28/20 Oswestry Impairment 24 Short Term Goal (STG) Score 17/50 on oswestry in order to show improved function 12/22- STG Duration 04/27/20 On Site Property Manager Goal (LTG) Score 5/50 on oswestry in order to show improved function LTG Duration 05/28/20 Progress Towards Goals Progress Towards Goals Progressing Toward Goals Assessment Summary Assessment Patricia returns to physical therapy after covid 19 restrictions kept her from therapy from December 17 until now. She reports that she doesn't have the same amount of pelvic floor guarding that she had. She is still feeling the pelvic pressure though and notes that the tightness in her low back and sacral region get worse as she tries to exercise her pelvic floor. With exam today her pelvic floor muscles are a muscle grade stronger and she is not as guarded as she was. She does have a great deal of tightness in the low back and we spent time today reviewing her low back stretching exercises. Patricia would benefit from continued PT working on endurance training and strengthening of her pelvic floor as well as continuing to work on her posture and low back discomfort Physical Therapy Plan Frequency and Duration Frequency of Treatment 1-2x/Week Duration of Treatment 3 months Plan of Care Start Date 03/28/20 Plan of Care End Date 06/27/20 Plan of Care Dates Plan of Care Start Date 03/28/20 Plan of Care End Date 06/27/20 Electronically Signed by: Isidra Will, PT 03/28/20 0645 Please Sign and Return: I have reviewed this Plan of Care and certify that the skilled therapy services above are required to meet the patient?s needs. Physician Signature Date Printed Name and Credentials Clinical Instructor Signature Printed Name and Credentials
--- NOTE | 2020-03-28 18:33 | PT.OTN ---
Current Diagnoses Pelvic and perineal pain (03/28/20) Unspecified urinary incontinence (03/28/20) Physical Therapy Treatment Note PT-OP-A Visit Information Start: 11/06/19 07:15 Freq: Status: Active Protocol: Document 03/28/20 17:51 [facility] (Rec: 03/28/20 18:32 [facility] [email or web address]) Out-Patient Physical Therapy Visit Information Visit Information Visit Type Progress Note Visit Start Time 16:00 Visit Stop Time 16:45 Total Visit Minutes 45 Visit Number 7 Number of [facility]NT GENERAL Visits 0 Evaluation Information Evaluation Date 11/06/19 PT-OP-B Current Condition Start: 11/06/19 07:15 Freq: Status: Active Protocol: Document 11/06/19 07:30 [facility] (Rec: 11/06/19 15:18 [facility] [email or web address]) Current Condition History of Current Condition Onset Date 1 year ago (10/2018) Current Complaints Deep pelvic pain and feeling of pressure. Incontinence History of Current Condition Patient is a 39 year old female who reports to physical therapy with c/c of incontinence, deep pelvic pain , and pressure in pelvis. Patient also reports low back pain and pain on sit bones which she is seeing another PT for. She is specifically concerned about her urine frequency and urine urgency. She reports needing to go to the bathroom 11-14x throughout the day (about every 30 minutes) and about 3x in the evening. She does wear a maxi- pad and leaks urine a few times throughout the day but does not wet her pants. She does not know if coughing makes her leak or not because of the pad but she does notice urine on the pad when she reaches the bathroom. Patient initially thought she had a UTI due to the frequency of urination but was negatively tested for this. Patient reports dyspareunia but it is not consistent and depends on the position she is in. The patient did report a fall 1 year ago when she injured her tailbone and thinks this might be related. The patient reports history of constipation and says that she is drinking a lot of fluids and and eating enough fiber. The patient also reports that she had bronchitis in July,. The patient reports pain inside of the pelvis and pressure in this area. The patient has 2 children (9 and 11 years ago) which she reports as traumatic with one child stuck on pelvic bone for 3+ hours and a vacuum was used. The patient reports that cold is a small trigger for her urgency but she tries to go to the bathroom before going out in to the cold to prevent urgency. The patient reports that she can initiate the urine when she goes to the bathroom but she does not feel like she can void completely. The patient would like to get this under control . Treatment Goals Patient/Caregiver Goals She would like to go to the bathroom less and have less urgency. 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 Functional Limitations- Work/School Has to go to bathroom frequently during work. has to sit on cushion during work Personal Factors Other Personal Factors That May Effect Seasonal Allergies Therapy/Recovery Back pain Dizziness and headaches Neck pain past hernia surgery Past concussion PT-OP-C Subjective Start: 11/06/19 07:15 Freq: Status: Active Protocol: Document 03/28/20 17:51 [facility] (Rec: 03/28/20 18:32 [facility] [email or web address]) OP-PT Subjective Patient Comments Patient Comments Patricia reports her symptoms are less than when she was beening seen back in december. She is having difficulty though with tightening her pelvic floor without having her low back and sacral region tighten. She still feels pelvic pressure and this increases with low back symptoms. She notes she is more tender on her left low back and sacral region PT-OP-I Pelvic Floor Start: 11/06/19 07:15 Freq: Status: Active Protocol: Document 03/28/20 17:51 [facility] (Rec: 03/28/20 18:32 [facility] [email or web address]) Pelvic Floor Assessment Pelvic Clock Pelvic Clock 3-6 Guarding,Tenderness Prolapse Uterine Prolapse Grade 1 Cystocele Grade 1 Contraction Ability Voluntary Contraction Weak Manual Muscle Testing Left 3 Manual Muscle Testing Right 3 Manual Muscle Testing Anterior 3 Manual Muscle Testing Posterior 3 Muscle Endurance (Seconds) 5 Comments Pelvic Floor Comments Patricia has made good progress with overall relaxation of her pelvic floor muscles. She does not have the tenderness to palpation that she did prior. She still tends to have difficulty fully relaxing her pelvic floor following a contraction and tends to become tighter after contractions. PT-OP-Q Treatments Start: 11/06/19 07:15 Freq: Status: Active Protocol: Document 03/28/20 17:51 [facility] (Rec: 03/28/20 18:32 [facility] [email or web address]) Therapeutic Exercises Supine Exercises 1 Supine Exercise Name pelvic floor long holds Side bilateral Reps/Minutes x 10 reps Comments 10 second pelvic floor relaxation Other Exercises 1 Other Exercise Name TA isolation in quadruped Comments pt educated on relaxing her abdominal wall at rest, keeping a neutral spin dayo pose Other Exercise Name with back in a rounded position quadruped tail wag Other Exercise Name with lumbar flexion quadruped cat camel Reps/Minutes x10 Comments cued tolerant range Self-Care/Home Management Treatment Education Patient Education Body Mechanics,Home Exercise Program Other Education pt shown how to position her pelvis on a wedge to help decompress her pelvic floor PT-OP-T Assessment and Plan Start: 11/06/19 07:15 Freq: Status: Active Protocol: Document 03/28/20 17:51 [facility] (Rec: 03/28/20 18:32 [facility] [email or web address]) Physical Therapy Assessment Goals One Impairment nocturia Jail Goal (LTG) Patricia will reduce her nocturia to 1x/night or less. LTG Duration 8 weeks pelvic pain Short Term Goal (STG) Patricia will report she is able to engage in sexual intercourse without pain. STG Duration 4 weeks Jail Goal (LTG) Patricia will tolerate palpation throughout her pelvic floor musculature without an increase in her baseline pain. LTG Duration 8 weeks continence Short Term Goal (STG) Patricia will use urge reduction techniques to decrease her frequency of urination to once every 2 hours without leaking . STG Duration 4 weeks Jail Goal (LTG) Patricia will use urge reduction techniques so she no longer needs to wear pads during the day. LTG Duration 8 weeks sitting Jail Goal (LTG) Pt will be able to sit for as long as needed without inc pain. 12/22-still feels tight with sitting LTG Duration 05/24/20 ROM Short Term Goal (STG) Pt will have WNL ROM. 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 LTG Duration 06/28/20 strength Short Term Goal (STG) Pt will be indep with HEP. STG Duration achieved Jail Goal (LTG) Pt will score 5/5 LPM, VCT, and EFT in order to show improved core stability in order to allow her to participate in all work without inc pain. 12/22-improved LPM LTG Duration 05/28/20 Oswestry Impairment 24/ Short Term Goal (STG) Score 17/50 on oswestry in order to show improved function 12/22- STG Duration 04/27/20 User Support Analyst Supervisor Goal (LTG) Score 5/50 on oswestry in order to show improved function LTG Duration 05/28/20 Progress Towards Goals Progress Towards Goals Progressing Toward Goals Assessment Summary Assessment Patricia returns to physical therapy after covid 19 restrictions kept her from therapy from December 17 until now. She reports that she doesn't have the same amount of pelvic floor guarding that she had. She is still feeling the pelvic pressure though and notes that the tightness in her low back and sacral region get worse as she tries to exercise her pelvic floor. With exam today her pelvic floor muscles are a muscle grade stronger and she is not as guarded as she was. She does have a great deal of tightness in the low back and we spent time today reviewing her low back stretching exercises. Patricia would benefit from continued PT working on endurance training and strengthening of her pelvic floor as well as continuing to work on her posture and low back discomfort Physical Therapy Plan Frequency and Duration Frequency of Treatment 1-2x/Week Duration of Treatment 3 months Plan of Care Start Date 03/28/20 Plan of Care End Date 06/27/20
--- NOTE | 2020-03-30 18:50 | PT.OTN ---
Current Diagnoses Pelvic and perineal pain (04/06/20) Unspecified urinary incontinence (04/06/20) Physical Therapy Treatment Note PT-OP-A Visit Information Start: 11/06/19 07:15 Freq: Status: Active Protocol: Document 03/30/20 18:26 [facility] (Rec: 04/06/20 12:41 [facility] [email or web address]) Out-Patient Physical Therapy Visit Information Visit Information Visit Type Treatment Note Visit Start Time 10:30 Visit Stop Time 11:15 Total Visit Minutes 45 Visit Number 9 PT-OP-B Current Condition Start: 11/06/19 07:15 Freq: Status: Active Protocol: Document 11/06/19 07:30 [facility] (Rec: 11/06/19 15:18 [facility] [email or web address]) Current Condition History of Current Condition Onset Date 1 year ago (10/2018) Current Complaints Deep pelvic pain and feeling of pressure. Incontinence History of Current Condition Patient is a 39 year old female who reports to physical therapy with c/c of incontinence, deep pelvic pain , and pressure in pelvis. Patient also reports low back pain and pain on sit bones which she is seeing another PT for. She is specifically concerned about her urine frequency and urine urgency. She reports needing to go to the bathroom 11-14x throughout the day (about every 30 minutes) and about 3x in the evening. She does wear a maxi- pad and leaks urine a few times throughout the day but does not wet her pants. She does not know if coughing makes her leak or not because of the pad but she does notice urine on the pad when she reaches the bathroom. Patient initially thought she had a UTI due to the frequency of urination but was negatively tested for this. Patient reports dyspareunia but it is not consistent and depends on the position she is in. The patient did report a fall 1 year ago when she injured her tailbone and thinks this might be related. The patient reports history of constipation and says that she is drinking a lot of fluids and and eating enough fiber. The patient also reports that she had bronchitis in July,. The patient reports pain inside of the pelvis and pressure in this area. The patient has 2 children (9 and 11 years ago) which she reports as traumatic with one child stuck on pelvic bone for 3+ hours and a vacuum was used. The patient reports that cold is a small trigger for her urgency but she tries to go to the bathroom before going out in to the cold to prevent urgency. The patient reports that she can initiate the urine when she goes to the bathroom but she does not feel like she can void completely. The patient would like to get this under control . Treatment Goals Patient/Caregiver Goals She would like to go to the bathroom less and have less urgency. 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 Functional Limitations- Work/School Has to go to bathroom frequently during work. has to sit on cushion during work Personal Factors Other Personal Factors That May Effect Seasonal Allergies Therapy/Recovery Back pain Dizziness and headaches Neck pain past hernia surgery Past concussion PT-OP-C Subjective Start: 11/06/19 07:15 Freq: Status: Active Protocol: Document 03/30/20 18:26 [facility] (Rec: 04/06/20 12:41 [facility] [email or web address]) OP-PT Subjective Patient Comments Patient Comments pt reports she has been able to void for a much longer time and after last visit she had the longest void she has had in a long time. She reports decreased complains of pelvic floor heaviness. She did get her foam roll PT-OP-I Pelvic Floor Start: 11/06/19 07:15 Freq: Status: Active Protocol: Document 03/28/20 17:51 [facility] (Rec: 03/28/20 18:32 [facility] [email or web address]) Pelvic Floor Assessment Pelvic Clock Pelvic Clock 3-6 Guarding,Tenderness Prolapse Uterine Prolapse Grade 1 Cystocele Grade 1 Contraction Ability Voluntary Contraction Weak Manual Muscle Testing Left 3 Manual Muscle Testing Right 3 Manual Muscle Testing Anterior 3 Manual Muscle Testing Posterior 3 Muscle Endurance (Seconds) 5 Comments Pelvic Floor Comments Patricia has made good progress with overall relaxation of her pelvic floor muscles. She does not have the tenderness to palpation that she did prior. She still tends to have difficulty fully relaxing her pelvic floor following a contraction and tends to become tighter after contractions. PT-OP-Q Treatments Start: 11/06/19 07:15 Freq: Status: Active Protocol: Document 03/30/20 18:26 [facility] (Rec: 03/30/20 18:27 [facility] [email or web address]) Therapeutic Exercises Supine Exercises 1 Supine Exercise Name pelvic floor long holds Side bilateral Reps/Minutes x 10 reps Comments 10 second pelvic floor relaxation diaphragmatric breathing Supine Exercise Name supine & seated with focus on belly expansion 1/2 happy baby pose Supine Exercise Name unilateral hip flexion with knee at 90deg and leg abd to outside of trunk Side bilateral Comments cue to hold above coronado instead of behind TS ext and rolling foam roller Supine Exercise Name postural stretch on foam roll Resistance passive TrA activation Supine Exercise Name w/ER and trying 3 different positions of hip Side bilateral Manual Therapy Treatment Soft Tissue Mobilization L ES, paraspinals Body Location MFR to the left QL and paraspinals Intensity/Depth Moderate Body Position Prone PT-OP-T Assessment and Plan Start: 11/06/19 07:15 Freq: Status: Active Protocol: Document 03/30/20 18:26 [facility] (Rec: 04/06/20 12:41 [facility] [email or web address]) Physical Therapy Assessment Assessment Summary Assessment improved diaphragmatic breathing, decreased downward pressure on the pelvic floor and improved ability to void. I spent a great deal of time on releasing the low back and breathing techniques today Physical Therapy Plan Frequency and Duration Frequency of Treatment 1-2x/Week Duration of Treatment 3 months Plan of Care Start Date 03/28/20 Plan of Care End Date 06/27/20 Therapeutic Interventions Therapeutic Interventions Aquatic Therapy,Balance Training,Gait Training,Home Exercise Program,Joint Mobilizations,Manual Therapy, Neuromuscular Re-education, Patient/Caregiver Education, Self-Care/Home Management,Soft Tissue Mobilization,Taping, Therapeutic Activities, Therapeutic Exercises Modalities Biofeedback,Cold Pack/Ice Massage,Electric Stimulation, Hot Packs,Infrared Therapy, Iontophoresis,Traction- Mechanical,Ultrasound Next Visit Focus/Plan Next Note Type Treatment Note Next Visit Plan revisit EMG biofeedback next visit to check pelvic floor endurance, resting tone, and quick contractions
--- NOTE | 2020-04-06 12:41 | PT.OTN ---
Current Diagnoses Pelvic and perineal pain (04/06/20) Unspecified urinary incontinence (04/06/20) Physical Therapy Treatment Note PT-OP-A Visit Information Start: 11/06/19 07:15 Freq: Status: Active Protocol: Document 04/06/20 12:32 [facility] (Rec: 04/06/20 12:41 [facility] [email or web address]) Out-Patient Physical Therapy Visit Information Visit Information Visit Type Treatment Note Visit Start Time 10:30 Visit Stop Time 11:15 Total Visit Minutes 45 Visit Number 9 PT-OP-B Current Condition Start: 11/06/19 07:15 Freq: Status: Active Protocol: Document 11/06/19 07:30 [facility] (Rec: 11/06/19 15:18 [facility] [email or web address]) Current Condition History of Current Condition Onset Date 1 year ago (10/2018) Current Complaints Deep pelvic pain and feeling of pressure. Incontinence History of Current Condition Patient is a 39 year old female who reports to physical therapy with c/c of incontinence, deep pelvic pain , and pressure in pelvis. Patient also reports low back pain and pain on sit bones which she is seeing another PT for. She is specifically concerned about her urine frequency and urine urgency. She reports needing to go to the bathroom 11-14x throughout the day (about every 30 minutes) and about 3x in the evening. She does wear a maxi- pad and leaks urine a few times throughout the day but does not wet her pants. She does not know if coughing makes her leak or not because of the pad but she does notice urine on the pad when she reaches the bathroom. Patient initially thought she had a UTI due to the frequency of urination but was negatively tested for this. Patient reports dyspareunia but it is not consistent and depends on the position she is in. The patient did report a fall 1 year ago when she injured her tailbone and thinks this might be related. The patient reports history of constipation and says that she is drinking a lot of fluids and and eating enough fiber. The patient also reports that she had bronchitis in July,. The patient reports pain inside of the pelvis and pressure in this area. The patient has 2 children (9 and 11 years ago) which she reports as traumatic with one child stuck on pelvic bone for 3+ hours and a vacuum was used. The patient reports that cold is a small trigger for her urgency but she tries to go to the bathroom before going out in to the cold to prevent urgency. The patient reports that she can initiate the urine when she goes to the bathroom but she does not feel like she can void completely. The patient would like to get this under control . Treatment Goals Patient/Caregiver Goals She would like to go to the bathroom less and have less urgency. 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 Functional Limitations- Work/School Has to go to bathroom frequently during work. has to sit on cushion during work Personal Factors Other Personal Factors That May Effect Seasonal Allergies Therapy/Recovery Back pain Dizziness and headaches Neck pain past hernia surgery Past concussion PT-OP-C Subjective Start: 11/06/19 07:15 Freq: Status: Active Protocol: Document 04/06/20 12:32 [facility] (Rec: 04/06/20 12:41 [facility] [email or web address]) OP-PT Subjective Patient Comments Patient Comments pt reports she has been able to void for a much longer time and after last visit she had the longest void she has had in a long time. She reports decreased complains of pelvic floor heaviness. She did get her foam roll PT-OP-I Pelvic Floor Start: 11/06/19 07:15 Freq: Status: Active Protocol: Document 03/28/20 17:51 [facility] (Rec: 03/28/20 18:32 [facility] [email or web address]) Pelvic Floor Assessment Pelvic Clock Pelvic Clock 3-6 Guarding,Tenderness Prolapse Uterine Prolapse Grade 1 Cystocele Grade 1 Contraction Ability Voluntary Contraction Weak Manual Muscle Testing Left 3 Manual Muscle Testing Right 3 Manual Muscle Testing Anterior 3 Manual Muscle Testing Posterior 3 Muscle Endurance (Seconds) 5 Comments Pelvic Floor Comments Patricia has made good progress with overall relaxation of her pelvic floor muscles. She does not have the tenderness to palpation that she did prior. She still tends to have difficulty fully relaxing her pelvic floor following a contraction and tends to become tighter after contractions. PT-OP-Q Treatments Start: 11/06/19 07:15 Freq: Status: Active Protocol: Document 04/06/20 12:32 [facility] (Rec: 04/06/20 12:41 [facility] [email or web address]) Therapeutic Exercises Supine Exercises 2 Supine Exercise Name pt educated in urge deference technique including quick contractions for Reps/Minutes 5 quick contractions Comments pt to work on when she has a urge to void diaphragmatric breathing Supine Exercise Name supine & seated with focus on belly expansion march with TrA Supine Exercise Name marches with TA activation Reps/Minutes x 10 reps TrA activation Supine Exercise Name w/ER and trying 3 different positions of hip Side bilateral Other Exercises quadruped cat camel Other Exercise Name cat cow Reps/Minutes x 10 reps Manual Therapy Treatment Soft Tissue Mobilization L ES, paraspinals Body Location MFR to the left QL and paraspinals Intensity/Depth Moderate Body Position Prone 1 Body Location left sacral region and piriformis release PT-OP-T Assessment and Plan Start: 11/06/19 07:15 Freq: Status: Active Protocol: Document 04/06/20 12:32 [facility] (Rec: 04/06/20 12:41 [facility] [email or web address]) Physical Therapy Assessment Assessment Summary Assessment improved diaphragmatic breathing, decreased downward pressure on the pelvic floor and improved ability to void. I added in quick contractions today to help with urge technique however Patricia was instructed in stopping if she felt that pelvic floor spasm with this. Physical Therapy Plan Frequency and Duration Frequency of Treatment 1-2x/Week Duration of Treatment 3 months Plan of Care Start Date 03/28/20 Plan of Care End Date 06/27/20 Therapeutic Interventions Therapeutic Interventions Aquatic Therapy,Balance Training,Gait Training,Home Exercise Program,Joint Mobilizations,Manual Therapy, Neuromuscular Re-education, Patient/Caregiver Education, Self-Care/Home Management,Soft Tissue Mobilization,Taping, Therapeutic Activities, Therapeutic Exercises Modalities Biofeedback,Cold Pack/Ice Massage,Electric Stimulation, Hot Packs,Infrared Therapy, Iontophoresis,Traction- Mechanical,Ultrasound Next Visit Focus/Plan Next Note Type Treatment Note Next Visit Plan revisit EMG biofeedback next visit to check pelvic floor endurance, resting tone, and quick contractions
--- NOTE | 2020-04-12 19:22 | PT.OTN ---
Current Diagnoses Pelvic and perineal pain (04/12/20) Unspecified urinary incontinence (04/12/20) Physical Therapy Treatment Note PT-OP-A Visit Information Start: 11/06/19 07:15 Freq: Status: Active Protocol: Document 04/12/20 19:14 [facility] (Rec: 04/12/20 19:22 [facility] [email or web address]) Out-Patient Physical Therapy Visit Information Visit Information Visit Type Treatment Note Visit Start Time 15:15 Visit Stop Time 16:00 Total Visit Minutes 45 Visit Number 10 PT-OP-B Current Condition Start: 11/06/19 07:15 Freq: Status: Active Protocol: Document 11/06/19 07:30 [facility] (Rec: 11/06/19 15:18 [facility] [email or web address]) Current Condition History of Current Condition Onset Date 1 year ago (10/2018) Current Complaints Deep pelvic pain and feeling of pressure. Incontinence History of Current Condition Patient is a 39 year old female who reports to physical therapy with c/c of incontinence, deep pelvic pain , and pressure in pelvis. Patient also reports low back pain and pain on sit bones which she is seeing another PT for. She is specifically concerned about her urine frequency and urine urgency. She reports needing to go to the bathroom 11-14x throughout the day (about every 30 minutes) and about 3x in the evening. She does wear a maxi- pad and leaks urine a few times throughout the day but does not wet her pants. She does not know if coughing makes her leak or not because of the pad but she does notice urine on the pad when she reaches the bathroom. Patient initially thought she had a UTI due to the frequency of urination but was negatively tested for this. Patient reports dyspareunia but it is not consistent and depends on the position she is in. The patient did report a fall 1 year ago when she injured her tailbone and thinks this might be related. The patient reports history of constipation and says that she is drinking a lot of fluids and and eating enough fiber. The patient also reports that she had bronchitis in July,. The patient reports pain inside of the pelvis and pressure in this area. The patient has 2 children (9 and 11 years ago) which she reports as traumatic with one child stuck on pelvic bone for 3+ hours and a vacuum was used. The patient reports that cold is a small trigger for her urgency but she tries to go to the bathroom before going out in to the cold to prevent urgency. The patient reports that she can initiate the urine when she goes to the bathroom but she does not feel like she can void completely. The patient would like to get this under control . Treatment Goals Patient/Caregiver Goals She would like to go to the bathroom less and have less urgency. 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 Functional Limitations- Work/School Has to go to bathroom frequently during work. has to sit on cushion during work Personal Factors Other Personal Factors That May Effect Seasonal Allergies Therapy/Recovery Back pain Dizziness and headaches Neck pain past hernia surgery Past concussion PT-OP-C Subjective Start: 11/06/19 07:15 Freq: Status: Active Protocol: Document 04/12/20 19:14 [facility] (Rec: 04/12/20 19:22 [facility] [email or web address]) OP-PT Subjective Patient Comments Patient Comments pt reports she had a little more leakage this last week. She has been trying to do her exercises at home PT-OP-I Pelvic Floor Start: 11/06/19 07:15 Freq: Status: Active Protocol: Document 03/28/20 17:51 [facility] (Rec: 03/28/20 18:32 [facility] [email or web address]) Pelvic Floor Assessment Pelvic Clock Pelvic Clock 3-6 Guarding,Tenderness Prolapse Uterine Prolapse Grade 1 Cystocele Grade 1 Contraction Ability Voluntary Contraction Weak Manual Muscle Testing Left 3 Manual Muscle Testing Right 3 Manual Muscle Testing Anterior 3 Manual Muscle Testing Posterior 3 Muscle Endurance (Seconds) 5 Comments Pelvic Floor Comments Patricia has made good progress with overall relaxation of her pelvic floor muscles. She does not have the tenderness to palpation that she did prior. She still tends to have difficulty fully relaxing her pelvic floor following a contraction and tends to become tighter after contractions. PT-OP-Q Treatments Start: 11/06/19 07:15 Freq: Status: Active Protocol: Document 04/12/20 19:14 [facility] (Rec: 07/07/20 19:22 [facility] [email or web address]) Therapeutic Exercises Supine Exercises 1 Supine Exercise Name pelvic floor long holds Side bilateral Reps/Minutes x 10 reps Comments 10 second pelvic floor relaxation diaphragmatric breathing Supine Exercise Name supine & seated with focus on belly expansion Manual Therapy Treatment Soft Tissue Mobilization 3 Body Location MFR over the abdominal wall and suprapubic fascia Body Position Supine 2 Body Location bladder visceral mobilizations PT-OP-T Assessment and Plan Start: 11/06/19 07:15 Freq: Status: Active Protocol: Document 04/12/20 19:14 [facility] (Rec: 04/12/20 19:22 [facility] [email or web address]) Physical Therapy Assessment Assessment Summary Assessment pt demonstrated average pelvic floor contraction today to 18 .4 uv and average rest of 4.8 uv. No complaints of pain today with treatment. I did elevate Jas pelvis with ther ex today and she really liked this. She also tolerated bladder mobilizations really well today Physical Therapy Plan Frequency and Duration Frequency of Treatment 1-2x/Week Duration of Treatment 3 months Plan of Care Start Date 03/28/20 Plan of Care End Date 06/27/20 Therapeutic Interventions Therapeutic Interventions Aquatic Therapy,Balance Training,Gait Training,Home Exercise Program,Joint Mobilizations,Manual Therapy, Neuromuscular Re-education, Patient/Caregiver Education, Self-Care/Home Management,Soft Tissue Mobilization,Taping, Therapeutic Activities, Therapeutic Exercises Modalities Biofeedback,Cold Pack/Ice Massage,Electric Stimulation, Hot Packs,Infrared Therapy, Iontophoresis,Traction- Mechanical,Ultrasound Next Visit Focus/Plan Next Note Type Treatment Note Next Visit Plan recheck left sacral [place] next visit
--- NOTE | 2020-04-14 17:34 | PT.OTN ---
Current Diagnoses Pelvic and perineal pain (04/14/20) Unspecified urinary incontinence (04/14/20) Physical Therapy Treatment Note PT-OP-A Visit Information Start: 11/06/19 07:15 Freq: Status: Active Protocol: Document 04/14/20 17:24 [facility] (Rec: 04/14/20 17:34 [facility] [email or web address]) Out-Patient Physical Therapy Visit Information Visit Information Visit Type Treatment Note Visit Start Time 14:30 Visit Stop Time 15:15 Total Visit Minutes 45 Visit Number 11 PT-OP-B Current Condition Start: 11/06/19 07:15 Freq: Status: Active Protocol: Document 11/06/19 07:30 [facility] (Rec: 11/06/19 15:18 [facility] [email or web address]) Current Condition History of Current Condition Onset Date 1 year ago (10/2018) Current Complaints Deep pelvic pain and feeling of pressure. Incontinence History of Current Condition Patient is a 39 year old female who reports to physical therapy with c/c of incontinence, deep pelvic pain , and pressure in pelvis. Patient also reports low back pain and pain on sit bones which she is seeing another PT for. She is specifically concerned about her urine frequency and urine urgency. She reports needing to go to the bathroom 11-14x throughout the day (about every 30 minutes) and about 3x in the evening. She does wear a maxi- pad and leaks urine a few times throughout the day but does not wet her pants. She does not know if coughing makes her leak or not because of the pad but she does notice urine on the pad when she reaches the bathroom. Patient initially thought she had a UTI due to the frequency of urination but was negatively tested for this. Patient reports dyspareunia but it is not consistent and depends on the position she is in. The patient did report a fall 1 year ago when she injured her tailbone and thinks this might be related. The patient reports history of constipation and says that she is drinking a lot of fluids and and eating enough fiber. The patient also reports that she had bronchitis in July,. The patient reports pain inside of the pelvis and pressure in this area. The patient has 2 children (9 and 11 years ago) which she reports as traumatic with one child stuck on pelvic bone for 3+ hours and a vacuum was used. The patient reports that cold is a small trigger for her urgency but she tries to go to the bathroom before going out in to the cold to prevent urgency. The patient reports that she can initiate the urine when she goes to the bathroom but she does not feel like she can void completely. The patient would like to get this under control . Treatment Goals Patient/Caregiver Goals She would like to go to the bathroom less and have less urgency. 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 Functional Limitations- Work/School Has to go to bathroom frequently during work. has to sit on cushion during work Personal Factors Other Personal Factors That May Effect Seasonal Allergies Therapy/Recovery Back pain Dizziness and headaches Neck pain past hernia surgery Past concussion PT-OP-C Subjective Start: 11/06/19 07:15 Freq: Status: Active Protocol: Document 04/14/20 17:24 [facility] (Rec: 04/14/20 17:34 [facility] [email or web address]) OP-PT Subjective Patient Comments Patient Comments Patricia reports it has been a better week this week and she hasn't experienced any leaking or feeling of heaviness. It is getting easier to feel her pelvic floor muscles PT-OP-I Pelvic Floor Start: 11/06/19 07:15 Freq: Status: Active Protocol: Document 03/28/20 17:51 [facility] (Rec: 03/28/20 18:32 [facility] [email or web address]) Pelvic Floor Assessment Pelvic Clock Pelvic Clock 3-6 Guarding,Tenderness Prolapse Uterine Prolapse Grade 1 Cystocele Grade 1 Contraction Ability Voluntary Contraction Weak Manual Muscle Testing Left 3 Manual Muscle Testing Right 3 Manual Muscle Testing Anterior 3 Manual Muscle Testing Posterior 3 Muscle Endurance (Seconds) 5 Comments Pelvic Floor Comments Patricia has made good progress with overall relaxation of her pelvic floor muscles. She does not have the tenderness to palpation that she did prior. She still tends to have difficulty fully relaxing her pelvic floor following a contraction and tends to become tighter after contractions. PT-OP-Q Treatments Start: 11/06/19 07:15 Freq: Status: Active Protocol: Document 04/14/20 17:24 [facility] (Rec: 04/14/20 17:34 [facility] [email or web address]) Therapeutic Exercises Prone Exercises child's pose, side bend Prone Exercise Name Rachel pose, side bends Other Exercises quadruped tail wag Other Exercise Name quadruped tail wag Reps/Minutes x 10 quadruped cat camel Other Exercise Name cat cow Reps/Minutes x 10 reps Manual Therapy Treatment Soft Tissue Mobilization L ES, paraspinals Body Location MFR to the left QL and paraspinals Intensity/Depth Moderate Body Position Prone 1 Body Location left sacral region and piriformis release PT-OP-T Assessment and Plan Start: 11/06/19 07:15 Freq: Status: Active Protocol: Document 04/14/20 17:24 [facility] (Rec: 04/14/20 17:34 [facility] [email or web address]) Physical Therapy Assessment Assessment Summary Assessment pt demonstrating improved ability to facilitate her pelvic floor with decreased c/ o pressure. I had her log when she feels the instability as it may be due to the week before her cycle. Physical Therapy Plan Frequency and Duration Frequency of Treatment 1-2x/Week Duration of Treatment 3 months Plan of Care Start Date 03/28/20 Plan of Care End Date 06/27/20 Therapeutic Interventions Therapeutic Interventions Aquatic Therapy,Balance Training,Gait Training,Home Exercise Program,Joint Mobilizations,Manual Therapy, Neuromuscular Re-education, Patient/Caregiver Education, Self-Care/Home Management,Soft Tissue Mobilization,Taping, Therapeutic Activities, Therapeutic Exercises Modalities Biofeedback,Cold Pack/Ice Massage,Electric Stimulation, Hot Packs,Infrared Therapy, Iontophoresis,Traction- Mechanical,Ultrasound
--- NOTE | 2020-04-19 17:22 | PT.OTN ---
Current Diagnoses Pelvic and perineal pain (04/19/20) Unspecified urinary incontinence (04/19/20) Physical Therapy Treatment Note PT-OP-A Visit Information Start: 11/06/19 07:15 Freq: Status: Active Protocol: Document 04/19/20 17:12 [facility] (Rec: 04/19/20 17:21 [facility] [id number]) Out-Patient Physical Therapy Visit Information Visit Information Visit Type Treatment Note Visit Start Time 14:35 Visit Stop Time 15:15 Total Visit Minutes 40 Visit Number 12 PT-OP-B Current Condition Start: 11/06/19 07:15 Freq: Status: Active Protocol: Document 11/06/19 07:30 [facility] (Rec: 11/06/19 15:18 [facility] [id number]) Current Condition History of Current Condition Onset Date 1 year ago (10/2018) Current Complaints Deep pelvic pain and feeling of pressure. Incontinence History of Current Condition Patient is a 39 year old female who reports to physical therapy with c/c of incontinence, deep pelvic pain , and pressure in pelvis. Patient also reports low back pain and pain on sit bones which she is seeing another PT for. She is specifically concerned about her urine frequency and urine urgency. She reports needing to go to the bathroom 11-14x throughout the day (about every 30 minutes) and about 3x in the evening. She does wear a maxi- pad and leaks urine a few times throughout the day but does not wet her pants. She does not know if coughing makes her leak or not because of the pad but she does notice urine on the pad when she reaches the bathroom. Patient initially thought she had a UTI due to the frequency of urination but was negatively tested for this. Patient reports dyspareunia but it is not consistent and depends on the position she is in. The patient did report a fall 1 year ago when she injured her tailbone and thinks this might be related. The patient reports history of constipation and says that she is drinking a lot of fluids and and eating enough fiber. The patient also reports that she had bronchitis in July,. The patient reports pain inside of the pelvis and pressure in this area. The patient has 2 children (9 and 11 years ago) which she reports as traumatic with one child stuck on pelvic bone for 3+ hours and a vacuum was used. The patient reports that cold is a small trigger for her urgency but she tries to go to the bathroom before going out in to the cold to prevent urgency. The patient reports that she can initiate the urine when she goes to the bathroom but she does not feel like she can void completely. The patient would like to get this under control . Treatment Goals Patient/Caregiver Goals She would like to go to the bathroom less and have less urgency. 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 Functional Limitations- Work/School Has to go to bathroom frequently during work. has to sit on cushion during work Personal Factors Other Personal Factors That May Effect Seasonal Allergies Therapy/Recovery Back pain Dizziness and headaches Neck pain past hernia surgery Past concussion PT-OP-C Subjective Start: 11/06/19 07:15 Freq: Status: Active Protocol: Document 04/19/20 17:12 [facility] (Rec: 04/19/20 17:21 [facility] [id number]) OP-PT Subjective Patient Comments Patient Comments Patricia reports her pelvic floor is doing okay at this point but her low back is really tight and sore today. She has been helping remodel her mothers house. She is trying hard not to lift anything heavy but did have to bend quite a bit. She is trying to use good form with lifting PT-OP-I Pelvic Floor Start: 11/06/19 07:15 Freq: Status: Active Protocol: Document 03/28/20 17:51 [facility] (Rec: 03/28/20 18:32 [facility] [email or web address]) Pelvic Floor Assessment Pelvic Clock Pelvic Clock 3-6 Guarding,Tenderness Prolapse Uterine Prolapse Grade 1 Cystocele Grade 1 Contraction Ability Voluntary Contraction Weak Manual Muscle Testing Left 3 Manual Muscle Testing Right 3 Manual Muscle Testing Anterior 3 Manual Muscle Testing Posterior 3 Muscle Endurance (Seconds) 5 Comments Pelvic Floor Comments Patricia has made good progress with overall relaxation of her pelvic floor muscles. She does not have the tenderness to palpation that she did prior. She still tends to have difficulty fully relaxing her pelvic floor following a contraction and tends to become tighter after contractions. PT-OP-Q Treatments Start: 11/06/19 07:15 Freq: Status: Active Protocol: Document 04/19/20 17:12 [facility] (Rec: 04/19/20 17:21 [facility] [id number]) Manual Therapy Treatment Soft Tissue Mobilization L ES, paraspinals Body Location MFR to the left QL and paraspinals Intensity/Depth Moderate Body Position Prone 1 Body Location left sacral region and piriformis release Manual Techniques 2 Type piriformis release and manual hip IR/ER stretching PT-OP-T Assessment and Plan Start: 11/06/19 07:15 Freq: Status: Active Protocol: Document 04/19/20 17:12 [facility] (Rec: 04/19/20 17:21 [facility] [id number]) Physical Therapy Assessment Assessment Summary Assessment left side of sacrum and coccyx tight, we talked about avoiding heavy lifting and being mindful about body mechanics. Patricia would also like to start exercises again and I agreed this was good to do. We talked about watching her lumbar spine that she didn 't go into the arch in her back with cardio dancing. Physical Therapy Plan Frequency and Duration Frequency of Treatment 1-2x/Week Duration of Treatment 3 months Plan of Care Start Date 03/28/20 Plan of Care End Date 06/27/20 Therapeutic Interventions Therapeutic Interventions Aquatic Therapy,Balance Training,Gait Training,Home Exercise Program,Joint Mobilizations,Manual Therapy, Neuromuscular Re-education, Patient/Caregiver Education, Self-Care/Home Management,Soft Tissue Mobilization,Taping, Therapeutic Activities, Therapeutic Exercises Modalities Biofeedback,Cold Pack/Ice Massage,Electric Stimulation, Hot Packs,Infrared Therapy, Iontophoresis,Traction- Mechanical,Ultrasound Next Visit Focus/Plan Next Note Type Treatment Note Next Visit Plan Resume EMG biofeedback next visit to review pelvic floro strengthening
--- NOTE | 2020-04-20 13:19 | PT.OTN ---
Current Diagnoses Pelvic and perineal pain (04/26/20) Unspecified urinary incontinence (04/26/20) Physical Therapy Treatment Note PT-OP-A Visit Information Start: 11/06/19 07:15 Freq: Status: Active Protocol: Document 04/20/20 11:55 [facility] (Rec: 04/27/20 13:19 [facility] [email or web address]) Out-Patient Physical Therapy Visit Information Visit Information Visit Type Treatment Note Visit Start Time 11:15 Visit Stop Time 12:00 Total Visit Minutes 45 Visit Number 13 PT-OP-B Current Condition Start: 11/06/19 07:15 Freq: Status: Active Protocol: Document 11/06/19 07:30 [facility] (Rec: 11/06/19 15:18 [facility] [email or web address]) Current Condition History of Current Condition Onset Date 1 year ago (10/2018) Current Complaints Deep pelvic pain and feeling of pressure. Incontinence History of Current Condition Patient is a 39 year old female who reports to physical therapy with c/c of incontinence, deep pelvic pain , and pressure in pelvis. Patient also reports low back pain and pain on sit bones which she is seeing another PT for. She is specifically concerned about her urine frequency and urine urgency. She reports needing to go to the bathroom 11-14x throughout the day (about every 30 minutes) and about 3x in the evening. She does wear a maxi- pad and leaks urine a few times throughout the day but does not wet her pants. She does not know if coughing makes her leak or not because of the pad but she does notice urine on the pad when she reaches the bathroom. Patient initially thought she had a UTI due to the frequency of urination but was negatively tested for this. Patient reports dyspareunia but it is not consistent and depends on the position she is in. The patient did report a fall 1 year ago when she injured her tailbone and thinks this might be related. The patient reports history of constipation and says that she is drinking a lot of fluids and and eating enough fiber. The patient also reports that she had bronchitis in July,. The patient reports pain inside of the pelvis and pressure in this area. The patient has 2 children (9 and 11 years ago) which she reports as traumatic with one child stuck on pelvic bone for 3+ hours and a vacuum was used. The patient reports that cold is a small trigger for her urgency but she tries to go to the bathroom before going out in to the cold to prevent urgency. The patient reports that she can initiate the urine when she goes to the bathroom but she does not feel like she can void completely. The patient would like to get this under control . Treatment Goals Patient/Caregiver Goals She would like to go to the bathroom less and have less urgency. 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 Functional Limitations- Work/School Has to go to bathroom frequently during work. has to sit on cushion during work Personal Factors Other Personal Factors That May Effect Seasonal Allergies Therapy/Recovery Back pain Dizziness and headaches Neck pain past hernia surgery Past concussion PT-OP-C Subjective Start: 11/06/19 07:15 Freq: Status: Active Protocol: Document 04/20/20 11:55 [facility] (Rec: 04/27/20 13:19 [facility] [email or web address]) OP-PT Subjective Patient Comments Patient Comments pt reports her pelvic floor is doing better and she is experiencing longer voids however her low back has been sore PT-OP-I Pelvic Floor Start: 11/06/19 07:15 Freq: Status: Active Protocol: Document 03/28/20 17:51 [facility] (Rec: 03/28/20 18:32 [facility] [email or web address]) Pelvic Floor Assessment Pelvic Clock Pelvic Clock 3-6 Guarding,Tenderness Prolapse Uterine Prolapse Grade 1 Cystocele Grade 1 Contraction Ability Voluntary Contraction Weak Manual Muscle Testing Left 3 Manual Muscle Testing Right 3 Manual Muscle Testing Anterior 3 Manual Muscle Testing Posterior 3 Muscle Endurance (Seconds) 5 Comments Pelvic Floor Comments Patricia has made good progress with overall relaxation of her pelvic floor muscles. She does not have the tenderness to palpation that she did prior. She still tends to have difficulty fully relaxing her pelvic floor following a contraction and tends to become tighter after contractions. PT-OP-Q Treatments Start: 11/06/19 07:15 Freq: Status: Active Protocol: Document 04/20/20 11:55 [facility] (Rec: 04/27/20 13:19 [facility] [email or web address]) Therapeutic Exercises Other Exercises quadruped tail wag Other Exercise Name quadruped tail wag Reps/Minutes x 10 quadruped cat camel Other Exercise Name cat cow Reps/Minutes x 10 reps Manual Therapy Treatment Soft Tissue Mobilization L ES, paraspinals Body Location MFR to the left QL and paraspinals Intensity/Depth Moderate Body Position Prone 3 Body Location MFR over the abdominal wall and suprapubic fascia Body Position Supine 1 Body Location left sacral region and piriformis release PT-OP-T Assessment and Plan Start: 11/06/19 07:15 Freq: Status: Active Protocol: Document 04/20/20 11:55 [facility] (Rec: 04/27/20 13:19 [facility] [email or web address]) Physical Therapy Assessment Assessment Summary Assessment worked on relaxed awareness of the low back today, manual therapy techniques to relax the sacrum.
--- NOTE | 2020-04-26 13:23 | PT.OTN ---
Current Diagnoses Pelvic and perineal pain (04/26/20) Unspecified urinary incontinence (04/26/20) Physical Therapy Treatment Note PT-OP-A Visit Information Start: 11/06/19 07:15 Freq: Status: Active Protocol: Document 04/26/20 13:19 [facility] (Rec: 04/27/20 13:23 [facility] [email or web address]) Out-Patient Physical Therapy Visit Information Visit Information Visit Type Treatment Note Visit Start Time 11:20 Visit Stop Time 12:00 Total Visit Minutes 45 Visit Number 14 PT-OP-B Current Condition Start: 11/06/19 07:15 Freq: Status: Active Protocol: Document 11/06/19 07:30 [facility] (Rec: 11/06/19 15:18 [facility] [email or web address]) Current Condition History of Current Condition Onset Date 1 year ago (10/2018) Current Complaints Deep pelvic pain and feeling of pressure. Incontinence History of Current Condition Patient is a 39 year old female who reports to physical therapy with c/c of incontinence, deep pelvic pain , and pressure in pelvis. Patient also reports low back pain and pain on sit bones which she is seeing another PT for. She is specifically concerned about her urine frequency and urine urgency. She reports needing to go to the bathroom 11-14x throughout the day (about every 30 minutes) and about 3x in the evening. She does wear a maxi- pad and leaks urine a few times throughout the day but does not wet her pants. She does not know if coughing makes her leak or not because of the pad but she does notice urine on the pad when she reaches the bathroom. Patient initially thought she had a UTI due to the frequency of urination but was negatively tested for this. Patient reports dyspareunia but it is not consistent and depends on the position she is in. The patient did report a fall 1 year ago when she injured her tailbone and thinks this might be related. The patient reports history of constipation and says that she is drinking a lot of fluids and and eating enough fiber. The patient also reports that she had bronchitis in July,. The patient reports pain inside of the pelvis and pressure in this area. The patient has 2 children (9 and 11 years ago) which she reports as traumatic with one child stuck on pelvic bone for 3+ hours and a vacuum was used. The patient reports that cold is a small trigger for her urgency but she tries to go to the bathroom before going out in to the cold to prevent urgency. The patient reports that she can initiate the urine when she goes to the bathroom but she does not feel like she can void completely. The patient would like to get this under control . Treatment Goals Patient/Caregiver Goals She would like to go to the bathroom less and have less urgency. 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 Functional Limitations- Work/School Has to go to bathroom frequently during work. has to sit on cushion during work Personal Factors Other Personal Factors That May Effect Seasonal Allergies Therapy/Recovery Back pain Dizziness and headaches Neck pain past hernia surgery Past concussion PT-OP-C Subjective Start: 11/06/19 07:15 Freq: Status: Active Protocol: Document 04/26/20 13:19 [facility] (Rec: 04/27/20 13:23 [facility] [email or web address]) OP-PT Subjective Patient Comments Patient Comments Still experiencing LBP and feeling like she is unable to find a position of comfort. Pelvic floor feeling better overall PT-OP-I Pelvic Floor Start: 11/06/19 07:15 Freq: Status: Active Protocol: Document 03/28/20 17:51 [facility] (Rec: 03/28/20 18:32 [facility] [email or web address]) Pelvic Floor Assessment Pelvic Clock Pelvic Clock 3-6 Guarding,Tenderness Prolapse Uterine Prolapse Grade 1 Cystocele Grade 1 Contraction Ability Voluntary Contraction Weak Manual Muscle Testing Left 3 Manual Muscle Testing Right 3 Manual Muscle Testing Anterior 3 Manual Muscle Testing Posterior 3 Muscle Endurance (Seconds) 5 Comments Pelvic Floor Comments Patricia has made good progress with overall relaxation of her pelvic floor muscles. She does not have the tenderness to palpation that she did prior. She still tends to have difficulty fully relaxing her pelvic floor following a contraction and tends to become tighter after contractions. PT-OP-Q Treatments Start: 11/06/19 07:15 Freq: Status: Active Protocol: Document 04/26/20 13:19 [facility] (Rec: 04/27/20 13:23 [facility] [email or web address]) Manual Therapy Treatment Soft Tissue Mobilization 3 Body Location MFR over the abdominal wall and suprapubic fascia Body Position Supine Comments pt positioned in the 90/90 position to relax her low back 2 Body Location manual psoas release bilaterally Comments pt felt a release in her back with psoas release PT-OP-T Assessment and Plan Start: 11/06/19 07:15 Freq: Status: Active Protocol: Document 04/26/20 13:19 [facility] (Rec: 04/27/20 13:23 [facility] [email or web address]) Physical Therapy Assessment Assessment Summary Assessment Patricia may benefit from further work up on her back with a MRI. She tends to find herself in a arched position and I am wondering about the stability of her L5 on her S1. I put her legs in a 90/90 position today to work on her abdominal wall and kasandra release. This was helpful for her to do. I encouranged this position at home Physical Therapy Plan Frequency and Duration Frequency of Treatment 1-2x/Week Duration of Treatment 3 months Plan of Care Start Date 03/28/20 Plan of Care End Date 06/27/20 Next Visit Focus/Plan Next Note Type Progress Note Next Visit Plan AK to MD for possible MRI referral
--- NOTE | 2020-04-28 18:16 | PT.OPPOC ---
Physical, Occupational & Speech Therapy At [facility] Current Diagnoses Pelvic and perineal pain (04/28/20) Unspecified urinary incontinence (04/28/20) Visit Care Team Role Provider Type Kym Celis DO Attending Provider Physician Primary Care Provider Specialty: Family Practice Address: [address] [place] [address], [place], [address] Email: [email or web address] Plan Of Care PT-OP-T Assessment and Plan Start: 11/06/19 07:15 Freq: Status: Active Protocol: Document 04/28/20 18:05 [facility] (Rec: 04/28/20 18:16 [facility] [id number]) Physical Therapy Assessment Goals pelvic pain Short Term Goal (STG) Patricia will report she is able to engage in sexual intercourse without pain. STG Duration 4 weeks Usp Goal (LTG) Patricia will tolerate palpation throughout her pelvic floor musculature without an increase in her baseline pain. EXCELLENT PROGRESS LTG Duration 8 weeks continence Short Term Goal (STG) Patricia will use urge reduction techniques to decrease her frequency of urination to once every 2 hours without leaking . STG Duration 4 weeks Professor Of Theatre Goal (LTG) Patricia will use urge reduction techniques so she no longer needs to wear pads during the day. EXCELLENT PROGRESS LTG Duration 8 weeks Oswestry Impairment 24/50 Short Term Goal (STG) Score 17/50 on oswestry in order to show improved function 12/22- STG Duration 04/27/20 Usp Goal (LTG) Score 5/50 on oswestry in order to show improved function Pt still noting low back dysfunction and pain. LTG Duration 05/28/20 Assessment Summary Assessment Patricia has had both symptoms of pelvic floor heaviness as well as her LBP. At this point she has decreased complaints of pelvic floor pain and we have gotten her to the point where she is able to stabilize with her pelvic floor without feeling pain. Her voids are also improved now with decreased urgency. Her low back however is still a issue for her. She has had some days where she has less pain but it doesn't take much activity for her back to lock in a exaggerated lordotic position. I am wondering if further diagnostic work up would be helpful for her? At this point Patricia has 2 visits left in PT for her back. Manual therapy techniques help her but are not seeming to be tank terminal gauger. She has both a home stabilization as well as a home stretching program. I will refer her back to her MD for further work up. Plan of Care Dates Plan of Care Start Date 03/28/20 Plan of Care End Date 06/27/20 Electronically Signed by: Isidra Will, PT 04/28/20 [id number] Please Sign and Return: I have reviewed this Plan of Care and certify that the skilled therapy services above are required to meet the patient?s needs. Physician Signature Date Printed Name and Credentials Clinical Instructor Signature Printed Name and Credentials
--- NOTE | 2020-04-28 18:17 | PT.OTN ---
Current Diagnoses Pelvic and perineal pain (04/28/20) Unspecified urinary incontinence (04/28/20) Physical Therapy Treatment Note PT-OP-A Visit Information Start: 11/06/19 07:15 Freq: Status: Active Protocol: Document 04/28/20 18:05 [facility] (Rec: 04/28/20 18:16 [facility] [id number]) Out-Patient Physical Therapy Visit Information Visit Information Visit Type Treatment Note Visit Start Time 11:15 Visit Stop Time 12:00 Total Visit Minutes 45 Visit Number 15 Evaluation Information Evaluation Date 11/06/19 PT-OP-B Current Condition Start: 11/06/19 07:15 Freq: Status: Active Protocol: Document 11/06/19 07:30 [facility] (Rec: 11/06/19 15:18 [facility] [id number]) Current Condition History of Current Condition Onset Date 1 year ago (10/2018) Current Complaints Deep pelvic pain and feeling of pressure. Incontinence History of Current Condition Patient is a 39 year old female who reports to physical therapy with c/c of incontinence, deep pelvic pain , and pressure in pelvis. Patient also reports low back pain and pain on sit bones which she is seeing another PT for. She is specifically concerned about her urine frequency and urine urgency. She reports needing to go to the bathroom 11-14x throughout the day (about every 30 minutes) and about 3x in the evening. She does wear a maxi- pad and leaks urine a few times throughout the day but does not wet her pants. She does not know if coughing makes her leak or not because of the pad but she does notice urine on the pad when she reaches the bathroom. Patient initially thought she had a UTI due to the frequency of urination but was negatively tested for this. Patient reports dyspareunia but it is not consistent and depends on the position she is in. The patient did report a fall 1 year ago when she injured her tailbone and thinks this might be related. The patient reports history of constipation and says that she is drinking a lot of fluids and and eating enough fiber. The patient also reports that she had bronchitis in July,. The patient reports pain inside of the pelvis and pressure in this area. The patient has 2 children (9 and 11 years ago) which she reports as traumatic with one child stuck on pelvic bone for 3+ hours and a vacuum was used. The patient reports that cold is a small trigger for her urgency but she tries to go to the bathroom before going out in to the cold to prevent urgency. The patient reports that she can initiate the urine when she goes to the bathroom but she does not feel like she can void completely. The patient would like to get this under control . Treatment Goals Patient/Caregiver Goals She would like to go to the bathroom less and have less urgency. 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 Functional Limitations- Work/School Has to go to bathroom frequently during work. has to sit on cushion during work Personal Factors Other Personal Factors That May Effect Seasonal Allergies Therapy/Recovery Back pain Dizziness and headaches Neck pain past hernia surgery Past concussion PT-OP-C Subjective Start: 11/06/19 07:15 Freq: Status: Active Protocol: Document 04/28/20 18:05 [facility] (Rec: 04/28/20 18:16 [facility] [id number]) OP-PT Subjective Patient Comments Patient Comments pt reports she has been really tight and guarded in her low back still. She is working on putting her legs up in a 90/ 90 degree position and doing her stretches PT-OP-I Pelvic Floor Start: 11/06/19 07:15 Freq: Status: Active Protocol: Document 03/28/20 17:51 [facility] (Rec: 03/28/20 18:32 [facility] [id number]) Pelvic Floor Assessment Pelvic Clock Pelvic Clock 3-6 Guarding,Tenderness Prolapse Uterine Prolapse Grade 1 Cystocele Grade 1 Contraction Ability Voluntary Contraction Weak Manual Muscle Testing Left 3 Manual Muscle Testing Right 3 Manual Muscle Testing Anterior 3 Manual Muscle Testing Posterior 3 Muscle Endurance (Seconds) 5 Comments Pelvic Floor Comments Patricia has made good progress with overall relaxation of her pelvic floor muscles. She does not have the tenderness to palpation that she did prior. She still tends to have difficulty fully relaxing her pelvic floor following a contraction and tends to become tighter after contractions. PT-OP-Q Treatments Start: 11/06/19 07:15 Freq: Status: Active Protocol: Document 04/28/20 18:05 [facility] (Rec: 04/28/20 18:16 [facility] [id number]) Therapeutic Exercises Supine Exercises 1 Supine Exercise Name pelvic floor long holds Side bilateral Reps/Minutes x 10 reps Comments 10 second pelvic floor relaxation diaphragmatric breathing Supine Exercise Name diaphragmatic breathing Comments x 5 reps Other Exercises quadruped tail wag Other Exercise Name quadruped tail wag Reps/Minutes x 10 quadruped cat camel Other Exercise Name cat cow Reps/Minutes x 10 reps Manual Therapy Treatment Soft Tissue Mobilization L ES, paraspinals Body Location MFR to the left QL and paraspinals Intensity/Depth Moderate Body Position Prone 3 Body Location MFR over the abdominal wall and suprapubic fascia Body Position Supine Comments pt positioned in the 90/90 position to relax her low back 2 Body Location manual psoas release bilaterally Comments pt felt a release in her back with psoas release 1 Body Location left sacral region and piriformis release PT-OP-T Assessment and Plan Start: 11/06/19 07:15 Freq: Status: Active Protocol: Document 04/28/20 18:05 [facility] (Rec: 04/28/20 18:16 [facility] [id number]) Physical Therapy Assessment Goals pelvic pain Short Term Goal (STG) Patricia will report she is able to engage in sexual intercourse without pain. STG Duration 4 weeks Cell Pourer Goal (LTG) Patricia will tolerate palpation throughout her pelvic floor musculature without an increase in her baseline pain. EXCELLENT PROGRESS LTG Duration 8 weeks continence Short Term Goal (STG) Patricia will use urge reduction techniques to decrease her frequency of urination to once every 2 hours without leaking . STG Duration 4 weeks Cell Pourer Goal (LTG) Patricia will use urge reduction techniques so she no longer needs to wear pads during the day. EXCELLENT PROGRESS LTG Duration 8 weeks Oswestry Impairment 24/ Short Term Goal (STG) Score 17/50 on oswestry in order to show improved function 12/22- STG Duration 04/27/20 Senior Living Goal (LTG) Score 5/50 on oswestry in order to show improved function Pt still noting low back dysfunction and pain. LTG Duration 05/28/20 Assessment Summary Assessment Patricia has had both symptoms of pelvic floor heaviness as well as her LBP. At this point she has decreased complaints of pelvic floor pain and we have gotten her to the point where she is able to stabilize with her pelvic floor without feeling pain. Her voids are also improved now with decreased urgency. Her low back however is still a issue for her. She has had some days where she has less pain but it doesn't take much activity for her back to lock in a exaggerated lordotic position. I am wondering if further diagnostic work up would be helpful for her? At this point Patricia has 2 visits left in PT for her back. Manual therapy techniques help her but are not seeming to be manager intermediate. She has both a home stabilization as well as a home stretching program. I will refer her back to her MD for further work up.
--- NOTE | 2020-05-10 15:09 | PT.OTN ---
Current Diagnoses Pelvic and perineal pain (05/10/20) Unspecified urinary incontinence (05/10/20) Physical Therapy Treatment Note PT-OP-A Visit Information Start: 11/06/19 07:15 Freq: Status: Active Protocol: Document 05/10/20 14:59 [facility] (Rec: 05/10/20 15:08 [facility] [id number]) Out-Patient Physical Therapy Visit Information Visit Information Visit Type Treatment Note Visit Start Time 11:20 Visit Stop Time 12:15 Total Visit Minutes 55 Visit Number 16 PT-OP-B Current Condition Start: 11/06/19 07:15 Freq: Status: Active Protocol: Document 11/06/19 07:30 [facility] (Rec: 11/06/19 15:18 [facility] [email or web address]) Current Condition History of Current Condition Onset Date 1 year ago (10/2018) Current Complaints Deep pelvic pain and feeling of pressure. Incontinence History of Current Condition Patient is a 39 year old female who reports to physical therapy with c/c of incontinence, deep pelvic pain , and pressure in pelvis. Patient also reports low back pain and pain on sit bones which she is seeing another PT for. She is specifically concerned about her urine frequency and urine urgency. She reports needing to go to the bathroom 11-14x throughout the day (about every 30 minutes) and about 3x in the evening. She does wear a maxi- pad and leaks urine a few times throughout the day but does not wet her pants. She does not know if coughing makes her leak or not because of the pad but she does notice urine on the pad when she reaches the bathroom. Patient initially thought she had a UTI due to the frequency of urination but was negatively tested for this. Patient reports dyspareunia but it is not consistent and depends on the position she is in. The patient did report a fall 1 year ago when she injured her tailbone and thinks this might be related. The patient reports history of constipation and says that she is drinking a lot of fluids and and eating enough fiber. The patient also reports that she had bronchitis in July,. The patient reports pain inside of the pelvis and pressure in this area. The patient has 2 children (9 and 11 years ago) which she reports as traumatic with one child stuck on pelvic bone for 3+ hours and a vacuum was used. The patient reports that cold is a small trigger for her urgency but she tries to go to the bathroom before going out in to the cold to prevent urgency. The patient reports that she can initiate the urine when she goes to the bathroom but she does not feel like she can void completely. The patient would like to get this under control . Treatment Goals Patient/Caregiver Goals She would like to go to the bathroom less and have less urgency. 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 Functional Limitations- Work/School Has to go to bathroom frequently during work. has to sit on cushion during work Personal Factors Other Personal Factors That May Effect Seasonal Allergies Therapy/Recovery Back pain Dizziness and headaches Neck pain past hernia surgery Past concussion PT-OP-C Subjective Start: 11/06/19 07:15 Freq: Status: Active Protocol: Document 05/10/20 14:59 [facility] (Rec: 05/10/20 15:08 [facility] [id number]) OP-PT Subjective Patient Comments Patient Comments pt reports she has her MRI scheduled for tomorrow. She has been doing better this week. She did all her stretches today and after the incline stretch she was able to get a adjustment in her sacrum. She still feels at times her voiding is a slow process PT-OP-I Pelvic Floor Start: 11/06/19 07:15 Freq: Status: Active Protocol: Document 03/28/20 17:51 [facility] (Rec: 03/28/20 18:32 [facility] [id number]) Pelvic Floor Assessment Pelvic Clock Pelvic Clock 3-6 Guarding,Tenderness Prolapse Uterine Prolapse Grade 1 Cystocele Grade 1 Contraction Ability Voluntary Contraction Weak Manual Muscle Testing Left 3 Manual Muscle Testing Right 3 Manual Muscle Testing Anterior 3 Manual Muscle Testing Posterior 3 Muscle Endurance (Seconds) 5 Comments Pelvic Floor Comments Patricia has made good progress with overall relaxation of her pelvic floor muscles. She does not have the tenderness to palpation that she did prior. She still tends to have difficulty fully relaxing her pelvic floor following a contraction and tends to become tighter after contractions. PT-OP-Q Treatments Start: 11/06/19 07:15 Freq: Status: Active Protocol: Document 05/10/20 14:59 [facility] (Rec: 05/10/20 15:08 [facility] [id number]) Therapeutic Exercises Supine Exercises 5 Supine Exercise Name TA facilitation with heel slides Comments this exercise was more of a challange on the left side. 4 Supine Exercise Name lower abdominal progression level 1 b Reps/Minutes x 10 Comments good tolerance for this level 3 Supine Exercise Name pelvic floor long holds Comments average pelvic floor contraction 20.1 and max of 35 uv resting tone 3 diaphragmatric breathing Supine Exercise Name diaphragmatic breathing Comments x 5 reps march with TrA Supine Exercise Name marches with TA activation Reps/Minutes x 10 reps Manual Therapy Treatment Soft Tissue Mobilization 3 Body Location MFR over the abdominal wall and suprapubic fascia Body Position Supine Comments pt positioned in the 90/90 position to relax her low back 2 Body Location manual psoas release bilaterally Manual Techniques 1 Type Superior Bladder mobilization Body Location Bladder Body Position Hooklying Comments good tolerance and no discomfort PT-OP-R Modalities Start: 05/10/20 15:08 Freq: Status: Active Protocol: Document 05/10/20 15:08 [facility] (Rec: 05/10/20 15:09 [facility] [id number]) Hot Pack/Cold Pack Treatment Hot Pack Location low back and sacrum Patient Position Hooklying Treatment Duration (minutes) 10 Patient Tolerance Good Comments legs over the bolster 90/90 position PT-OP-T Assessment and Plan Start: 11/06/19 07:15 Freq: Status: Active Protocol: Document 05/10/20 14:59 [facility] (Rec: 05/10/20 15:08 [facility] [id number]) Physical Therapy Assessment Assessment Summary Assessment Patricia has been using the 90/90 position at home and this is helping her. MRI results will be helpful next visit. She has been able to increase LA stabilization however a long lever arm is still really challanging for her.
--- NOTE | 2020-05-17 09:38 | PT.OTN ---
Current Diagnoses Pelvic and perineal pain (05/12/20) Unspecified urinary incontinence (05/12/20) Physical Therapy Treatment Note PT-OP-A Visit Information Start: 11/06/19 07:15 Freq: Status: Active Protocol: Document 05/12/20 11:15 [facility] (Rec: 05/17/20 09:37 [facility] [email or web address]) Out-Patient Physical Therapy Visit Information Visit Information Visit Type Treatment Note Visit Start Time 11:15 Visit Stop Time 12:00 Total Visit Minutes 45 Visit Number 17 PT-OP-B Current Condition Start: 11/06/19 07:15 Freq: Status: Active Protocol: Document 11/06/19 07:30 [facility] (Rec: 11/06/19 15:18 [facility] [email or web address]) Current Condition History of Current Condition Onset Date 1 year ago (10/2018) Current Complaints Deep pelvic pain and feeling of pressure. Incontinence History of Current Condition Patient is a 39 year old female who reports to physical therapy with c/c of incontinence, deep pelvic pain , and pressure in pelvis. Patient also reports low back pain and pain on sit bones which she is seeing another PT for. She is specifically concerned about her urine frequency and urine urgency. She reports needing to go to the bathroom 11-14x throughout the day (about every 30 minutes) and about 3x in the evening. She does wear a maxi- pad and leaks urine a few times throughout the day but does not wet her pants. She does not know if coughing makes her leak or not because of the pad but she does notice urine on the pad when she reaches the bathroom. Patient initially thought she had a UTI due to the frequency of urination but was negatively tested for this. Patient reports dyspareunia but it is not consistent and depends on the position she is in. The patient did report a fall 1 year ago when she injured her tailbone and thinks this might be related. The patient reports history of constipation and says that she is drinking a lot of fluids and and eating enough fiber. The patient also reports that she had bronchitis in July,. The patient reports pain inside of the pelvis and pressure in this area. The patient has 2 children (9 and 11 years ago) which she reports as traumatic with one child stuck on pelvic bone for 3+ hours and a vacuum was used. The patient reports that cold is a small trigger for her urgency but she tries to go to the bathroom before going out in to the cold to prevent urgency. The patient reports that she can initiate the urine when she goes to the bathroom but she does not feel like she can void completely. The patient would like to get this under control . Treatment Goals Patient/Caregiver Goals She would like to go to the bathroom less and have less urgency. 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 Functional Limitations- Work/School Has to go to bathroom frequently during work. has to sit on cushion during work Personal Factors Other Personal Factors That May Effect Seasonal Allergies Therapy/Recovery Back pain Dizziness and headaches Neck pain past hernia surgery Past concussion PT-OP-C Subjective Start: 11/06/19 07:15 Freq: Status: Active Protocol: Document 05/12/20 11:15 [facility] (Rec: 05/17/20 09:37 [facility] [id number]) OP-PT Subjective Patient Comments Patient Comments pt reports she has been doing a little better, trying the decompression exercises and doing her stretches. Pelvic floor overall doing better. Had her MRI yesterday PT-OP-I Pelvic Floor Start: 11/06/19 07:15 Freq: Status: Active Protocol: Document 03/28/20 17:51 [facility] (Rec: 03/28/20 18:32 [facility] [email or web address]) Pelvic Floor Assessment Pelvic Clock Pelvic Clock 3-6 Guarding,Tenderness Prolapse Uterine Prolapse Grade 1 Cystocele Grade 1 Contraction Ability Voluntary Contraction Weak Manual Muscle Testing Left 3 Manual Muscle Testing Right 3 Manual Muscle Testing Anterior 3 Manual Muscle Testing Posterior 3 Muscle Endurance (Seconds) 5 Comments Pelvic Floor Comments Patricia has made good progress with overall relaxation of her pelvic floor muscles. She does not have the tenderness to palpation that she did prior. She still tends to have difficulty fully relaxing her pelvic floor following a contraction and tends to become tighter after contractions. PT-OP-Q Treatments Start: 11/06/19 07:15 Freq: Status: Active Protocol: Document 05/12/20 11:15 [facility] (Rec: 05/17/20 09:37 [facility] [email or web address]) Therapeutic Exercises Supine Exercises 4 Supine Exercise Name lower abdominal progression level 1 b Reps/Minutes x 10 Comments good tolerance for this level march with TrA Supine Exercise Name marches with TA activation Reps/Minutes x 10 reps Manual Therapy Treatment Soft Tissue Mobilization L ES, paraspinals Body Location MFR to the left QL and paraspinals Intensity/Depth Moderate Body Position Prone Self-Care/Home Management Treatment Education Patient Education Body Mechanics,Home Exercise Program Other Education pt educated on MRI results, posture and body mechanics with lifting especially with a Annular tear in the L4/5 disc with extrusion. PT-OP-R Modalities Start: 05/10/20 15:08 Freq: Status: Active Protocol: Document 05/10/20 15:08 [facility] (Rec: 05/10/20 15:09 [facility] [id number]) Hot Pack/Cold Pack Treatment Hot Pack Location low back and sacrum Patient Position Hooklying Treatment Duration (minutes) 10 Patient Tolerance Good Comments legs over the bolster 90/90 position PT-OP-T Assessment and Plan Start: 11/06/19 07:15 Freq: Status: Active Protocol: Document 05/12/20 11:15 [facility] (Rec: 05/17/20 09:37 [facility] [email or web address]) Physical Therapy Assessment Assessment Summary Assessment All of Patricia's HEP were reviewed and stretches to decompress her spine. She would like to follow up with her MD regarding her MRI. There is a disc extrusion at L4-5 with annular fissure and body mechanics were reviewed today to avoid straining this area. At this point Patricia will follow up with her MD and we will place PT on hold. Physical Therapy Plan Frequency and Duration Frequency of Treatment 1-2x/Week Duration of Treatment 3 months Plan of Care Start Date 03/28/20 Plan of Care End Date 06/27/20 Next Visit Focus/Plan Next Note Type Treatment Note Next Visit Plan HOLD PT at this time until after Patricia has her MD visit and and plan of care regarding her Low back.
--- NOTE | 2020-12-15 09:20 | PT.OPDS ---
Current Diagnoses Pelvic and perineal pain (05/12/20) Unspecified urinary incontinence (05/12/20) Visit Care Team Role Provider Type Kym Celis DO Attending Provider Physician Primary Care Provider Specialty: Family Practice Address: [address] [place] [address], [place], [address] Email: [email or web address] Visit Number Visit Number 17 Discharge Summary PT-OP-B Current Condition Start: 11/06/19 07:15 Freq: Status: Active Protocol: Document 11/06/19 07:30 [facility] (Rec: 11/06/19 15:18 [facility] [id number]) Current Condition History of Current Condition Onset Date 1 year ago (10/2018) Current Complaints Deep pelvic pain and feeling of pressure. Incontinence History of Current Condition Patient is a 39 year old female who reports to physical therapy with c/c of incontinence, deep pelvic pain , and pressure in pelvis. Patient also reports low back pain and pain on sit bones which she is seeing another PT for. She is specifically concerned about her urine frequency and urine urgency. She reports needing to go to the bathroom 11-14x throughout the day (about every 30 minutes) and about 3x in the evening. She does wear a maxi- pad and leaks urine a few times throughout the day but does not wet her pants. She does not know if coughing makes her leak or not because of the pad but she does notice urine on the pad when she reaches the bathroom. Patient initially thought she had a UTI due to the frequency of urination but was negatively tested for this. Patient reports dyspareunia but it is not consistent and depends on the position she is in. The patient did report a fall 1 year ago when she injured her tailbone and thinks this might be related. The patient reports history of constipation and says that she is drinking a lot of fluids and and eating enough fiber. The patient also reports that she had bronchitis in July,. The patient reports pain inside of the pelvis and pressure in this area. The patient has 2 children (9 and 11 years ago) which she reports as traumatic with one child stuck on pelvic bone for 3+ hours and a vacuum was used. The patient reports that cold is a small trigger for her urgency but she tries to go to the bathroom before going out in to the cold to prevent urgency. The patient reports that she can initiate the urine when she goes to the bathroom but she does not feel like she can void completely. The patient would like to get this under control . Treatment Goals Patient/Caregiver Goals She would like to go to the bathroom less and have less urgency. 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 Functional Limitations- Work/School Has to go to bathroom frequently during work. has to sit on cushion during work Personal Factors Other Personal Factors That May Effect Seasonal Allergies Therapy/Recovery Back pain Dizziness and headaches Neck pain past hernia surgery Past concussion PT-OP-C Subjective Start: 11/06/19 07:15 Freq: Status: Active Protocol: Document 05/12/20 11:15 [facility] (Rec: 05/17/20 09:37 [facility] [id number]) OP-PT Subjective Patient Comments Patient Comments pt reports she has been doing a little better, trying the decompression exercises and doing her stretches. Pelvic floor overall doing better. Had her MRI yesterday PT-OP-I Pelvic Floor Start: 11/06/19 07:15 Freq: Status: Active Protocol: Document 03/28/20 17:51 [facility] (Rec: 03/28/20 18:32 [facility] [id number]) Pelvic Floor Assessment Pelvic Clock Pelvic Clock 3-6 Guarding,Tenderness Prolapse Uterine Prolapse Grade 1 Cystocele Grade 1 Contraction Ability Voluntary Contraction Weak Manual Muscle Testing Left 3 Manual Muscle Testing Right 3 Manual Muscle Testing Anterior 3 Manual Muscle Testing Posterior 3 Muscle Endurance (Seconds) 5 Comments Pelvic Floor Comments Patricia has made good progress with overall relaxation of her pelvic floor muscles. She does not have the tenderness to palpation that she did prior. She still tends to have difficulty fully relaxing her pelvic floor following a contraction and tends to become tighter after contractions. PT-OP-T Assessment and Plan Start: 11/06/19 07:15 Freq: Status: Active Protocol: Document 12/15/20 09:19 [facility] (Rec: 12/15/20 09:20 [facility] [id number]) Physical Therapy Assessment Assessment Summary Assessment Patricia is independent with her HEP, at the time of her last visit she was following up with her MD regarding her MRI results that showed a disc extrusion at L4-5. She will be discharged from PT at this time Physical Therapy Plan Discharge Physical Therapy Discharge Reasons Change in Medical Status
== END 2020-12-30 11:57 ==
LOC: PHYS 11:15
PROVIDERS: PCP Family Medicine; Visit Provider Family Medicine
DX: R32 Unspecified urinary incontinence (principal); R10.2 Pelvic and perineal pain
CPT/HCPCS: 97110; 97112; 97140; 97162; 97535

== ENCOUNTER → 2021-11-24 12:22 | Outpatient (CLI) | payer OTHER, SELFPAY ==
[2021-11-24 15:19] LABS: Add Manual Diff / Slide Review NO; Basophils Absolute Auto 0 /uL (0-100); Basophils Percent Auto 0.2 % (0-2); Eosinophils Absolute Auto 100 /uL (0-450); Eosinophils Percent Auto 0.9 % (2-4); Hematocrit 39.2 % (36-46); Hemoglobin 13.4 g/dL (12.0-16.0); Lymphocytes Absolute Auto 3600 /uL (1100-4500); Lymphocytes Percent Auto 44.2 % (25-40); Mean Corpuscular HGB Conc 34.1 % (30-36); Mean Corpuscular Hemoglobin 30.5 PG (26-34); Mean Corpuscular Volume 89.3 fL (80-100); Monocytes Absolute Auto 400 /uL (0-900); Monocytes Percent Auto 4.9 % (3-14); Neutrophils Absolute Auto 4000 /uL (1500-7000); Neutrophils Percent Auto 49.8 % (50-75); Platelet Count 238 X10^3/uL (150-400); Red Blood Cell Count 4.39 X10^6/uL (4.0-5.2); Red Cell Distribution Width 13.3 % (11.6-14.8); White Blood Cell Count 8.1 X10^3/uL (4.5-11.0)
[2021-11-24 15:46] LABS: Alanine Aminotransferase 32 IU/L (<35); Albumin 4.5 g/dL (3.5-5.0); Albumin Globulin Ratio 1.4 (1.0-2.8); Alkaline Phosphatase 56 U/L (38-126); Aspartate Aminotransferase 33 IU/L (14-36); BUN Creatinine Ratio 17.8 (6-22); Bilirubin Total 0.7 mg/dL (0.2-1.3); Blood Urea Nitrogen 13 mg/dL (7-17); Calcium 9.2 mg/dL (8.4-10.2); Carbon Dioxide 30 mmol/L (22-32); Chloride 101 mmol/L (98-107); Estimated Glomerular Filt Rate > 60.0 mL/min (>60); Globulin 3.2 g/dL (1.7-4.1); Glucose 102 mg/dL (70-100); HEMOLYSIS < 15 (0-50); Potassium 3.6 mmol/L (3.4-5.1); Sodium 138 mmol/L (137-145); Total Protein 7.7 g/dL (6.3-8.2)
[2021-11-24 16:12] LABS: Thyroid Stimulating Hormone 0.398 uIU/mL (0.47-4.68)
[2021-11-24 16:22] LABS: Ferritin 26 ng/mL (6-137)
== END ==
PROVIDERS: PCP Family Medicine; Referring Provider Family Medicine; Visit Provider Family Medicine
DX: L65.9 Nonscarring hair loss, unspecified (principal)
CPT/HCPCS: 36415; 80053; 82728; 84443; 85025

== ENCOUNTER → 2022-02-02 08:05 | Outpatient (CLI) | payer OTHER, SELFPAY ==
[2022-02-02 10:07] LABS: TSH w/ Reflex to FT4 0.06 uIU/mL (0.47-4.68)
== END ==
PROVIDERS: PCP Family Medicine; Referring Provider Family Medicine; Visit Provider Family Medicine
DX: Z13.29 Encounter for screening for other suspected endocrine disorder (principal)
CPT/HCPCS: 36415; 84439; 84443

== ENCOUNTER → 2022-02-07 07:52 | Outpatient (CLI) | payer OTHER, SELFPAY ==
--- NOTE | 2022-02-07 | DI.CT.S_ITS ---
PROCEDURE: CT SINUS SCREEN WO CON INDICATIONS: Chronic pansinusitis TECHNIQUE: Noncontrast 3.0 mm axial images acquired from the frontal sinuses to the mid-sella, with coronal and sagittal reformats. For radiation dose reduction, the following was used: automated exposure control, adjustment of mA and/or kV according to patient size. COMPARISON: None. FINDINGS: Image quality: Excellent. Maxillary Sinuses: No bony remodeling or destruction. Sinuses are clear. Ethmoid Air Cells: No bony remodeling or destruction. Sinuses are clear. Sphenoid Sinuses: No bony remodeling or destruction. Sinuses are clear. Frontal Sinuses: No bony remodeling or destruction. Sinuses are clear. Ostiomeatal Complexes: Ostiomeatal complexes are patent. No Teo cells. Miscellaneous: Visualized intra-orbital contents are normal. No glen bullosa or paradoxical turbinate curvature. Nasal septum is slightly deviated to the left. IMPRESSION: No paranasal sinus mucosal thickening or air-fluid levels. Dictated by: Delmy Rico MD, PhD on 02/07/2022 at 11:52 Approved by: Delmy Rico MD, PhD on 02/07/2022 at 11:54
== END ==
PROVIDERS: PCP Family Medicine; Referring Provider Otolaryngology; Visit Provider Otolaryngology
DX: J32.4 Chronic pansinusitis (principal)
CPT/HCPCS: 70486

== ENCOUNTER → 2022-02-26 15:16 | Outpatient (CLI) | payer OTHER, SELFPAY ==
--- NOTE | 2022-02-26 15:17 | DI.MG.S_ITS ---
BILATERAL DIGITAL SCREENING MAMMOGRAM 3D/2D WITH CAD: 02/26/2022 CLINICAL: Routine screening. Comparison is made to exam dated: 08/01/2019 [facility]. The tissue of both breasts is heterogeneously dense. This may lower the sensitivity of mammography. Current study was also evaluated with a Computer Aided Detection (CAD) system. No significant masses, calcifications, or other findings are seen in either breast. There has been no significant interval change. IMPRESSION: NEGATIVE There is no mammographic evidence of malignancy. A 1 year screening mammogram is recommended. This exam was interpreted at Station ID: [id number]. NOTE: For mammograms, a report in lay terms will be sent to the patient. Approximately 15% of breast malignancies will not be visualized mammographically. In the management of a palpable breast mass, a negative mammogram must not discourage biopsy of a clinically suspicious lesion. Electronically Signed By: Alina hughes/dora:02/27/2022 11:15:10 letter sent: Normal Exam ACR BI-RADS Category 1: Negative [id number]
== END ==
PROVIDERS: PCP Family Medicine; Referring Provider Family Medicine; Visit Provider Family Medicine
DX: Z12.31 Encounter for screening mammogram for malignant neoplasm of breast (principal)
CPT/HCPCS: 77063; 77067

== ENCOUNTER → 2022-03-28 11:53 | Outpatient (CLI) | payer OTHER, SELFPAY ==
[2022-03-28 14:10] LABS: TSH w/ Reflex to FT4 0.49 uIU/mL (0.47-4.68)
== END ==
PROVIDERS: PCP Family Medicine; Referring Provider Family Medicine; Visit Provider Family Medicine
DX: E05.90 Thyrotoxicosis, unspecified without thyrotoxic crisis or storm (principal)
CPT/HCPCS: 36415; 84443

== ENCOUNTER → 2023-06-21 09:46 | Outpatient (CLI) | payer OTHER, SELFPAY ==
--- NOTE | 2023-06-21 09:47 | DI.RAD.S_ITS ---
PROCEDURE: XR LUMBAR SPINE 2-3V INDICATIONS: low back pain TECHNIQUE: 3 views of the lumbar spine were acquired. COMPARISON: [facility], , XR LUMBAR SPINE 2-3V, 10/16/2019, 18:09. FINDINGS: Bones: 5 [id number] vertebrae are present. There is normal bony alignment. No vertebral body compression fractures. No suspicious bony lesions. Mild disc height loss at L4-5. Soft tissues: Overlying bowel gas pattern is normal. No suspicious soft tissue calcifications. IMPRESSION: Mild degenerative disc disease at L4-5. Dictated by: Dusty Vasques M.D. on 06/21/2023 at 10:52 Approved by: Dusty Vasques M.D. on 06/21/2023 at 10:53
== END ==
PROVIDERS: PCP Family Medicine; Referring Provider Family Medicine; Visit Provider Family Medicine
DX: M54.50 Low back pain, unspecified (principal); M51.36 Other intervertebral disc degeneration, lumbar region
CPT/HCPCS: 72100

== ENCOUNTER → 2023-07-11 09:50 | Outpatient (CLI) | payer OTHER, SELFPAY ==
--- NOTE | 2023-07-11 09:53 | DI.MRI.S_ITS ---
PROCEDURE: MR LUMBAR SPINE WO CON INDICATIONS: L spine pain, n/t in pelvis. diff voiding stool/bladder TECHNIQUE: Noncontrast sagittal T1 spin echo and T2 fast echo, sagittal STIR, and T2 fast spin echo through the lumbar spine. In cases with scoliosis, additional coronal T2 fast spin echo may be performed. COMPARISON: [facility], MR, MR LUMBAR SPINE WO CON, 05/11/2020, 17:22. [facility], CR, XR LUMBAR SPINE 2-3V, 10/16/2019, 18:09. [facility], CR, XR LUMBAR SPINE 2-3V, 06/21/2023, 9:55. FINDINGS: Image quality: This examination is limited by involuntary motion artifact. Alignment and Curvature: There is minimal retrolisthesis seen at the L5-S1 level. Bone Marrow: Marrow is of normal overall signal. No acute vertebral body compression fractures. Spinal Cord: Conus medullaris terminates at the L1 level. Visualized cord demonstrates normal signal and size. Paraspinous Soft Tissues: No paravertebral masses. T12-L1: Normal appearance. L1-L2: Normal appearance. L2-L3: Normal appearance. L3-L4: The disc height and disk signal are well-preserved. Mild generalized disc bulge is seen. Mild facet joint hypertrophy is seen. No significant neural foraminal or central canal narrowing can be seen. Stable from the prior study. L4-L5: The disc height and disk signal are relatively well-preserved. Moderate disc bulge is seen, with a central disc protrusion. At least moderate facet hypertrophy is seen. Associated hypertrophy of the ligamentum flavum can be seen. Moderate bilateral neural foraminal narrowing is seen. Moderate central canal narrowing is seen. These imaging findings have progressed compared to the prior study. L5-S1: Mild loss of disc height is seen. Loss of disc signal is seen. Mild disc bulge is seen, with a mild central disc protrusion. Moderate facet joint hypertrophy is seen. Mild to moderate bilateral neural foraminal narrowing can be seen. Mild central canal narrowing is seen. When comparison is made with the prior images, these findings are similar. IMPRESSION: Lumbar spine degenerative changes are seen, which are overall worst at the L4-L5 level. The degenerative changes at L4-L5 have progressed compared to 2020, yet otherwise appear stable. Dictated by: Mo Huff M.D. on 07/11/2023 at 17:25 Approved by: Mo Huff M.D. on 07/11/2023 at 17:29
== END ==
PROVIDERS: PCP Family Medicine; Referring Provider Family Medicine; Visit Provider Family Medicine
DX: M54.50 Low back pain, unspecified (principal); R39.198 Other difficulties with micturition
CPT/HCPCS: 72148

== ENCOUNTER → 2023-10-02 16:24 | Outpatient (CLI) | payer OTHER, SELFPAY | PROVIDERS: PCP Family Medicine; Visit Provider Family Medicine | DX: R10.9 Unspecified abdominal pain (principal); R82.998 Other abnormal findings in urine | CPT/HCPCS: 87086 ==

== ENCOUNTER → 2024-04-24 07:09 | Outpatient (CLI) | payer OTHER, SELFPAY ==
[2024-04-24 07:44] LABS: Hematocrit 37.6 % (36-46); Hemoglobin 12.7 g/dL (12.0-16.0); Mean Corpuscular HGB Conc 33.8 % (30-36); Mean Corpuscular Hemoglobin 30.4 PG (26-34); Mean Corpuscular Volume 89.9 fL (80-100); Platelet Count 319 X10^3/uL (150-400); Red Blood Cell Count 4.18 X10^6/uL (4.0-5.2); Red Cell Distribution Width 13.4 % (11.6-14.8); White Blood Cell Count 8.8 X10^3/uL (4.5-11.0)
[2024-04-24 08:29] LABS: Alanine Aminotransferase 21 IU/L (<35); Albumin 4.2 g/dL (3.5-5.0); Albumin Globulin Ratio 1.7 (1.0-2.8); Alkaline Phosphatase 79 U/L (38-126); Aspartate Aminotransferase 24 IU/L (14-36); BUN Creatinine Ratio 16.3 (6-22); Bilirubin Total 0.7 mg/dL (0.2-1.3); Blood Urea Nitrogen 14 mg/dL (7-17); Calcium 9.1 mg/dL (8.4-10.2); Carbon Dioxide 27 mmol/L (22-32); Chloride 104 mmol/L (98-107); Cholesterol 192 mg/dL (140-199); Estimated Glomerular Filt Rate > 60 mL/min (>60); Globulin 2.5 g/dL (1.7-4.1); Glucose 88 mg/dL (70-100); HDL Cholesterol 74 mg/dL (40-60); HEMOLYSIS < 15 (0-50); LDL Cholesterol Calculated 101 mg/dL (<100); Potassium 3.9 mmol/L (3.4-5.1); Sodium 138 mmol/L (137-145); Total Protein 6.7 g/dL (6.3-8.2); Triglycerides 85 mg/dL (35-150)
[2024-04-24 08:44] LABS: Free T4, Direct Thyroxine 0.97 ng/dL (0.78-2.19)
[2024-04-24 08:57] LABS: Thyroid Stimulating Hormone 1.95 uIU/mL (0.47-4.68)
== END ==
LOC: LAB 07:11
PROVIDERS: PCP Registered Nurse Diabetes Educator; Referring Provider Registered Nurse Diabetes Educator; Visit Provider Registered Nurse Diabetes Educator
DX: Z00.00 Encounter for general adult medical examination without abnormal findings (principal); R79.89 Other specified abnormal findings of blood chemistry
CPT/HCPCS: 36415; 80053; 80061; 84439; 84443; 85027

== ENCOUNTER → 2024-08-04 13:10 | Outpatient (CLI) | payer OTHER, SELFPAY ==
--- NOTE | 2024-08-04 13:11 | DI.MG.S_ITS ---
BILATERAL DIGITAL SCREENING MAMMOGRAM 3D/2D WITH CAD: 08/04/2024 CLINICAL: Routine screening. Comparison is made to exams dated: 02/26/2022 mammogram and 08/01/2019 mammogram - [facility]. The breasts are heterogeneously dense, which may obscure small masses (category c / 51-75% glandular tissue). Current study was also evaluated with a Computer Aided Detection (CAD) system. There is a high density asymmetry in the right breast middle depth superior region seen on the mediolateral oblique view only. This is more prominent. No other significant masses, calcifications, or other findings are seen in either breast. IMPRESSION: INCOMPLETE: NEED ADDITIONAL IMAGING EVALUATION The high density asymmetry in the right breast is indeterminate. Additional views with possible ultrasound are recommended. Based on the Tyrer Cuzick model (a risk assessment model) the patient's lifetime risk is 12.8% and her 10 year risk is 2.3%. According to the ACR, ACS, and NCCN guidelines, an annual breast MRI exam along with mammogram is recommended if the patient's lifetime risk is 20% or greater. This exam was interpreted at Station ID: [id number]. NOTE: For mammograms, a report in lay terms will be sent to the patient. Approximately 15% of breast malignancies will not be visualized mammographically. In the management of a palpable breast mass, a negative mammogram must not discourage biopsy of a clinically suspicious lesion. Electronically Signed By: Alina hughes/dora:08/04/2024 18:45:27 letter sent: Additional Imaging Needed ACR BI-RADS Category 0: Incomplete: Need Additional Imaging Evaluation
== END ==
PROVIDERS: PCP Registered Nurse Diabetes Educator; Referring Provider Registered Nurse Diabetes Educator; Visit Provider Registered Nurse Diabetes Educator
DX: Z12.31 Encounter for screening mammogram for malignant neoplasm of breast (principal); R92.333 Mammographic heterogeneous density, bilateral breasts
CPT/HCPCS: 77063; 77067

== ENCOUNTER → 2024-08-27 13:32 | Outpatient (CLI) | payer OTHER, SELFPAY ==
--- NOTE | 2024-08-27 13:35 | DI.US.S_ITS ---
LIMITED ULTRASOUND OF RIGHT BREAST: 08/27/2024 CLINICAL: Patient returns today to evaluate a focal asymmetry in the right breast. Comparison is made to exams dated: 08/27/2024 mammogram, 08/04/2024 mammogram, 02/26/2022 mammogram, and 08/01/2019 mammogram - [facility]. Color flow and real-time ultrasound of the right breast 12 o'clock region were performed. Paez scale images of the real-time examination were reviewed. There is a simple cyst at 12 o'clock, 7 cm from the nipple measuring up to 0.5 cm. This finding corresponds to the mammographic finding. IMPRESSION: BENIGN Right breast simple cyst at 12 o'clock is benign. No mammographic or sonographic evidence of malignancy. A 1 year screening mammogram is recommended. Findings and recommendations were conveyed to the patient during today's evaluation. This exam was interpreted at Station ID: [id number]. Electronically Signed By: Alicia Perez M.D., Ph.D. eb/:08/27/2024 22:13:56 letter sent: Normal Exam ACR BI-RADS Category 2: Benign
--- NOTE | 2024-08-27 13:35 | DI.MG.S_ITS ---
UNILATERAL RIGHT DIGITAL DIAGNOSTIC MAMMOGRAM 3D/2D WITH ADDITIONAL VIEWS: 08/27/2024 CLINICAL: Additional evaluation requested from prior study. Comparison is made to exams dated: 08/04/2024 mammogram, 02/26/2022 mammogram, and 08/01/2019 mammogram - [facility]. The breasts are heterogeneously dense, which may obscure small masses (category c / 51-75% glandular tissue). There is a focal asymmetry in the right breast at 12 o'clock middle depth. This corresponds to finding seen on recent screening mammogram. No other significant masses or calcifications are seen in the breast. IMPRESSION: INCOMPLETE: NEED ADDITIONAL IMAGING EVALUATION The focal asymmetry in the right breast is indeterminate. An ultrasound is recommended for further evaluation and is scheduled to immediately follow this examination. Based on the Tyrer Cuzick model (a risk assessment model) the patient's lifetime risk is 12.8% and her 10 year risk is 2.3%. According to the ACR, ACS, and NCCN guidelines, an annual breast MRI exam along with mammogram is recommended if the patient's lifetime risk is 20% or greater. This exam was interpreted at Station ID: [id number]. NOTE: For mammograms, a report in lay terms will be sent to the patient. Approximately 15% of breast malignancies will not be visualized mammographically. In the management of a palpable breast mass, a negative mammogram must not discourage biopsy of a clinically suspicious lesion. Electronically Signed By: Alicia Perez M.D., Ph.D. eb/:08/27/2024 22:12:09 letter sent: Additional Imaging Needed ACR BI-RADS Category 0: Incomplete: Need Additional Imaging Evaluation
--- NOTE | 2024-08-27 14:45 | DI.US.S_ITS ---
PROCEDURE: US SOFT TISSUE HEAD AND NECK INDICATIONS: eval R anterior cervical lymph node enlargement TECHNIQUE: Real-time scanning was performed of the neck region of interest, with image documentation. COMPARISON: None. FINDINGS: Normal submandibular lymph nodes noted the area concern. Fatty hilum preserved. IMPRESSION: Normal submandibular lymph nodes. No adenopathy. Approved by: Ming Diehl M.D. on 08/27/2024 at 17:41
== END ==
LOC: MAMMO 13:34
PROVIDERS: PCP Registered Nurse Diabetes Educator; Referring Provider Registered Nurse Diabetes Educator; Visit Provider Registered Nurse Diabetes Educator
DX: R92.8 Other abnormal and inconclusive findings on diagnostic imaging of breast (principal); N60.01 Solitary cyst of right breast; R92.333 Mammographic heterogeneous density, bilateral breasts; R59.0 Localized enlarged lymph nodes
CPT/HCPCS: 76536; 76642; 77065; G0279

== ENCOUNTER 2025-02-25 12:06 | Day surgery (SDC) | payer OTHER, SELFPAY ==
[2025-02-16 11:18] VITALS: BMI 25.7
[2025-02-25] VITALS (8 sets, daily range): BP systolic 115–136; BP diastolic 74–87; PULSE 85–109; RESP 12–19; TEMP 36.3–36.6; O2SAT 99–100; BMI 26.6
[2025-02-25] MEDS: LACTATED RINGERS 1,000 ML 42 ML IV (13:12)
[2025-02-25] MEDS: OXYMETAZOLINE NASAL SPRAY 30 ML 2 SPRAYS NASAL ×2 (13:12→14:26)
[2025-02-25] MEDS: ACETAMINOPHEN 325 MG TABLET 975 MG PO (13:12)
--- NOTE | 2025-02-25 13:29 | PM.PREOP ---
Pre-operative Note Interval Note History & Physical reviewed/Exam performed by Physician: Yes Changes to H&P: No
--- NOTE | 2025-02-25 13:29 | PM.OP.1 ---
Operative Date/Time/Diagnoses Date of procedure: 02/25/25 Time of procedure: 15:08 Pre-op diagnosis: Nasal airway obstruction, septal deviation, inferior turbinate hypertrophy, internal nasal valve restriction, allergic rhinitis Post-op diagnosis: same (LEFT internal nasal valve patent after septoplasty without requiring release) Procedure & Clinicians Procedure: 1. Septoplasty 2. Bilateral inferior turbinate reduction via intramural cautery Same procedure as scheduled: Yes Indications: 44 Year old with the above diagnoses incompletely managed with medical therapy presents for the above procedure. Following discussion of the material risks benefits complications and alternatives, the patient elected to proceed. Surgeon: Merrill Perry Click Yes if Unassisted: Yes Anesthesia Type: General and Local Operative Notes Findings: 2+ left anterior primarily cartilaginous septal deviation, [id number]-left inferior turbinate hypertrophy. Left internal nasal valve patent after septoplasty, formal release not necessary. Estimated Blood Loss (mL): 100 Procedure in detail: Following identification and confirmation of consent as well as preoperative Afrin nasal spray, the patient was brought to the operating room suite and placed in the supine position. General endotracheal anesthesia was administered. I infiltrated the septum widely bilaterally with 1% lidocaine 1 100,000 epinephrine followed by temporary packing with cotton with Afrin and 4% lidocaine. Following sterile prep and drape, the packing was removed and I performed a right leonela-transfixion incision, elevated the right mucoperichondrial and mucoperiosteal flap. I disarticulated near the bony/cartilaginous junction and elevated the left mucoperiosteal flap. Deviated portions of the perpendicular plate of the ethmoid and vomer were resected. The residual quadrilateral cartilage was further straightened by trimming it inferiorly as well as reducing the maxillary crest. A 2 mm strip of cartilage paralleling the residual 1 cm dorsal and caudal strut was resected to further straighten the quadrilateral cartilage. The hemitransfixion incision was closed with interrupted 5 0 chromic followed by a running 4 0 plain gut mattress suture to reapproximate the septal flaps. At case completion, 20/1000th of an inch silastic splints were placed bilaterally, sutured anteriorly with a single 4 0 nylon. The head of each inferior turbinate had been previously infiltrated with additional local anesthetic and a 25 gauge spinal needle was used to impale the length of the turbinate, with cautery on a setting of 15 activated on slow withdrawal over 2 passes. The turbinates were then outfractured. The procedure completed, sponge and needle counts were correct and the patient was extubated in the operating room and taken to recovery room in stable condition without known complication. Postoperative care: Nasal saline every hour while awake, Vaseline or Polysporin to the nostrils at all times, begin irrigations t.i.d. beginning pod 1. Humidifier at the bedside blowing on the face. Tylenol alternating with Advil for pain control, oxycodone if necessary for breakthrough pain. Complications: none Post-operative Condition: stable Disposition: same day surgery Plan for aftercare: Nasal saline every hour while awake, begin irrigations t.i.d. tomorrow if desired. Polysporin to the nostrils at all times, Tylenol alternating with Advil for pain control, oxycodone for breakthrough pain. Elevate head of bed, no nose blowing, no straining for 2 weeks. Ice directly under the nose on the upper lip has tolerated 24-48 hours at a minimum. Follow-up in 1 week for nasal splint removal.
--- NOTE | 2025-02-25 14:22 | SUR.OPER ---
Supine on padded OR bed, head on pillow, arms padded and tucked at sides, legs uncrossed, safety belt at thigh, tape over blanket over lower legs .
[2025-02-25] MEDS: LIDOCAINE 1% W/EPI 10ML 20 ML INJ (14:27)
[2025-02-25] MEDS: LIDOCAINE 4% SOLN 50 ML 20 ML TOP (14:28)
[2025-02-25] MEDS: BACITRACIN OINT 0.9 GM PCKT 1 APPLIC TOP (14:36)
[2025-02-25] MEDS: OXYCODONE IR 5 MG TABLET PO (15:30)
== END 2025-02-25 16:29 | disposition home or self-care (01) ==
PROVIDERS: PCP Registered Nurse Diabetes Educator; Referring Provider Otolaryngology; Visit Provider Otolaryngology
PROC: 09QM4ZZ Repair Nasal Septum, Percutaneous Endoscopic Approach (ICD-10-PCS; CPT 30520; principal; 2025-02-25 13:15)
DX: J34.89 Other specified disorders of nose and nasal sinuses (principal); J34.3 Hypertrophy of nasal turbinates; J34.2 Deviated nasal septum; Z87.891 Personal history of nicotine dependence; J30.9 Allergic rhinitis, unspecified; H10.13 Acute atopic conjunctivitis, bilateral
CPT/HCPCS: 30520; 30802; 81025; J1100; J2250; J2405; J2704; J3010